=== PATIENT | female | born 1965 | race Caucasian/White ===

== ENCOUNTER → 2023-10-25 10:54 | Outpatient (BNVA) | payer BC, SELFPAY | PROVIDERS: Visit Provider Physician Assistant Surgical ==

== ENCOUNTER 2023-11-01 11:29 | Outpatient (AMB) | payer BC, SELFPAY ==
--- NOTE | 2023-11-01 12:20 | MHC.OFFVISWM ---
Intake VS Expanded 11/01/23 12:39 Height 5 ft 0.5 in Weight 230 lb 6 oz BMI 44.2 Body Fat % 43.5 Body Fat Mass 100.4 Fat Free Mass 130 Visceral Fat Rating 15 Body Water % 40.1 Body Water Mass 92.4 Basal Metabolic Rate/Score 1,806 Intake Visit Reasons: 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 BMI 44.3 Allergies Sulfa (Sulfonamide Antibiotics) Allergy (Mild, Verified 11/01/23 12:20) rash Medication List - Last Reconciled 11/01/23 by Kyler Ruelas MD ascorbate calcium (vitamin C) 500 mg PO DAILY elderberry fruit mg PO gabapentin 100 mg PO TID hydrochlorothiazide 25 mg PO DAILY hydrocodone-acetaminophen 10-325 mg 1 tab PO Q8H PRN meloxicam 15 mg PO DAILY valsartan 160 mg PO DAILY HPI 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 BMI 44.3 HPI Details Start time: 12.15pm, End time: 1.03pm ?I spent 43 minutes speaking with the patient on the phone plus an additional 5 minutes reviewing and updating records for a total of 48 minutes HPI Comments History of Present Illness Details Previous weight loss efforts: diet, exercise, keto diet Wakes up: 6am, Sleeps: 10pm Breakfast: none Lunch: 1-2pm (can of tuna with crackers) Dinner: 6pm (pasta) Snacks: 3.30pm (fruit), 9pm (ice cream) Exercise: gym membership Coffee: 16oz/day with creamer, tea: none, soda: none, juice: 4/wk (orange and cranberry), ETOH: none PFSH Medical History (Updated 11/01/23 @ 12:31 by Kyler Ruelas MD) DJD (degenerative joint disease) Hypertension Morbid obesity Surgical History (Updated 11/01/23 @ 12:31 by Kyler Ruelas MD) History of ventral hernia repair History of hysterectomy History of delivery Family History (Updated 10/25/23 @ 11:31 by Graciela Perkins CMA) Father Bone cancer Social History (Updated 10/25/23 @ 11:27 by Graciela Perkins CMA) Alcohol intake: current Alcohol intake frequency: holidays/special occasions only Alcohol type: hard liquor Patient Tobacco Use Status: Current everyday Tobacco user Cigarettes Per Day: 10 Assessment & Plan Assessment & Plan (1) Morbid obesity: Code(s): E66.01 - Morbid (severe) obesity due to excess calories Plan: 1.? Plan for lap sleeve gastrectomy. If diaphragmatic or ventral hernias are present at time of surgery, these will be repaired laparoscopically as well. Risks and complications were discussed in detail including possible conversion to an open procedure, anastomotic leak, bleeding requiring transfusion, small bowel obstruction, , DVT and pulmonary embolism, cardiac, or pulmonary complications, as detention complications such as anastomotic ulcer, insufficient weight loss and vitamin deficiencies. I emphasized the importance of close follow-up, adherence to instructions and good communication. 2. Nutritional counseling. Start with 2 Isopure protein (buy at [employer], [employer], [employer], [facility]) shakes (HALF scoop EACH in 8oz water) at 7am-9am and 10am-12pm, 2 protein bars (Zone Perfect protein bars, buy at [employer], ?[employer], [facility], or [employer]) at 1pm-3pm and 4pm-6pm, dinner at 7pm (8 forks of protein and 8 forks of salad/vegetables). If you feel hungry after dinner please have another HALF Zone Perfect protein bar at 9pm-10pm. So you do 2 protein shakes, 2.5 protein bars and one meal per day. Meal to include lean meat (beef, fish, pork, turkey, chicken), or albanian yogurt, or egg whites, or beans with a salad with olive oil and fruits (berries, pears, apples, kiwi). Avoid salt, breads, potatoes, rice, pasta, desserts. 3. Each shake would be drunk slowly, like coffee in a period of 2 hours. 4. Cut each bar in 4 pieces and eat each piece in 30min ?to make each bar last 2 hours. 5. I emphasized the importance of measuring accurately the food portion and measure it when serving the food in plate 6. The meal portions include 8 full-size forks of meat and 8 full-size forks of salad. You always eat the meat portion but you can replace up to 4 forks for salad/vegetables with rice, potatoes or pasta, or a fruit ?if you like. The less you do it the better weight loss will be. 7. One full-size fork is what it can be scooped on the fork without falling aside and not what can be bit with the fork. Use regular forks like those you find in a typical restaurant. 8.? Please send me weight measurements tomorrow and then once a week. Always include your diet and exercise plan. 9. The best choice would be to purchase a stationary bike at home that can track calories. Let me know if you do so I can give you an exercise plan. 10.Goal is to lose at least 1.5-2lbs per week 11. Goal to lose 10% of your weight before surgery, which is about 23lbs. Ultimate weight goal: 207lbs before surgery 12. Please follow the diet plan exactly without any change. If you don't like something about the plan or you feel hungry you need to communicate with me so I can help you revise the plan. You should not change the plan yourself. Orders: Orders Insulin Today E66.01 - Morbid (severe) obesity due to excess calories, I10 - Essential (primary) hypertension H Pylori Breath Test Today E66.01 - Morbid (severe) obesity due to excess calories, I10 - Essential (primary) hypertension Complete Blood Count Auto Diff Today E66.01 - Morbid (severe) obesity due to excess calories, I10 - Essential (primary) hypertension Lipid Panel Today E66.01 - Morbid (severe) obesity due to excess calories, I10 - Essential (primary) hypertension IRON PROFILE Today E66.01 - Morbid (severe) obesity due to excess calories, I10 - Essential (primary) hypertension Comprehensive Met. Panel Today E66.01 - Morbid (severe) obesity due to excess calories, I10 - Essential (primary) hypertension Vitamin B12 and Folate Today E66.01 - Morbid (severe) obesity due to excess calories, I10 - Essential (primary) hypertension C Reactive Protein Today E66.01 - Morbid (severe) obesity due to excess calories, I10 - Essential (primary) hypertension Vitamin A Today E66.01 - Morbid (severe) obesity due to excess calories, I10 - Essential (primary) hypertension TSH reflex Free T4 Today E66.01 - Morbid (severe) obesity due to excess calories, I10 - Essential (primary) hypertension Ferritin Today E66.01 - Morbid (severe) obesity due to excess calories, I10 - Essential (primary) hypertension Vitamin D 25-OH Total Today E66.01 - Morbid (severe) obesity due to excess calories, I10 - Essential (primary) hypertension Hemoglobin A1c Today E66.01 - Morbid (severe) obesity due to excess calories, I10 - Essential (primary) hypertension Zinc Today E66.01 - Morbid (severe) obesity due to excess calories, I10 - Essential (primary) hypertension Vitamin B1 Today E66.01 - Morbid (severe) obesity due to excess calories, I10 - Essential (primary) hypertension US abdomen comp w elastography Today E66.01 - Morbid (severe) obesity due to excess calories, I10 - Essential (primary) hypertension XR chest 2V Today E66.01 - Morbid (severe) obesity due to excess calories, I10 - Essential (primary) hypertension ECG 12 lead EKG Today E66.01 - Morbid (severe) obesity due to excess calories, I10 - Essential (primary) hypertension FL upper GI w air Today E66.01 - Morbid (severe) obesity due to excess calories, I10 - Essential (primary) hypertension Referrals Nutrition/Dietitian Referral E66.01 - Morbid (severe) obesity due to excess calories, I10 - Essential (primary) hypertension Behavioral Health Referral E66.01 - Morbid (severe) obesity due to excess calories, I10 - Essential (primary) hypertension Telehealth Telehealth Location of provider rendering services: practice address Location of patient: address on file Patient Identification confirmed using: Name, : Yes Telehealth method: voice only Patient verbally consented to treatment: Yes Patient verbally consented to billing insurance company: Yes Patient informed of any privacy concerns related to visit: Yes Minutes spent on Phone/Video with Pt.: 48 Coding Level of Care Code Tele New Pt Level 4 (15021) Diagnoses Morbid obesity E66.01 Time Spent (min) 48
[2023-11-01 12:39] VITALS: BMI 44.2
== END 2023-11-01 13:05 | disposition home or self-care (01) ==
LOC: HO.HBS 11:29
PROVIDERS: Visit Provider Surgery
DX: E66.01 Morbid (severe) obesity due to excess calories (principal); Z68.41 Body mass index [BMI] 40.0-44.9, adult
CPT/HCPCS: 99443

== ENCOUNTER → 2023-11-01 11:29 | Outpatient (BNVA) | payer BC, SELFPAY | PROVIDERS: Visit Provider Surgery ==

== ENCOUNTER 2023-11-12 11:17 | Outpatient (REF) | payer BC, SELFPAY ==
--- NOTE | ~2023-11-12 | XR_ITS ---
EXAMINATION: XR CHEST 2 VIEWS CLINICAL INFORMATION: Morbid obesity. COMPARISON: None. TECHNIQUE: Frontal and lateral views of the chest were obtained. FINDINGS: The heart, great vessels, pulmonary vasculature and mediastinum are normal. The lungs show no focal infiltrate, effusion or pneumothorax. There is no acute osseous abnormality. XR/XR chest 2V IMPRESSION: No active cardiopulmonary disease.
--- NOTE | 2023-11-12 11:26 | ECG_ITS ---
Test Reason : e66.01 Blood Pressure : / mmHG Vent. Rate : 084 BPM Atrial Rate : 084 BPM P-R Int : 164 ms QRS Dur : 082 ms QT Int : 402 ms P-R-T Axes : 070 042 075 degrees QTc Int : 475 ms Normal sinus rhythm Normal ECG No previous ECGs available Referred By: Kyler Ruelas Electronically Signed By:Luis Elizondo
[2023-11-12 11:55] LABS: MANUAL DIFF FLAG NO
[2023-11-12 12:11] LABS: Basophils Percent Auto 0.4 % (0-2); Eosinophils Absolute Auto 0.2 X10*3/uL (0.0-0.4); Eosinophils Percent Auto 2.5 % (0-4); Hematocrit 43.7 % (37.0-47.0); Hemoglobin 14.9 g/dl (12.0-16.0); Imm Gran Abs Auto 0.01 X10*3/uL (0.00-0.03); Imm Gran Pct Auto 0.1 % (0.0-0.4); Lymphocytes Absolute Auto 2.9 X10*3/uL (1.2-4.9); Lymphocytes Percent Auto 43.2 % (20-40); Mean Corpuscular HGB Conc 34.1 g/dl (31.0-35.0); Mean Corpuscular Hemoglobin 30.8 pg (27.0-33.0); Mean Corpuscular Volume 90.3 fL (80.0-98.0); Mean Platelet Volume 10.6 fL (9.4-12.3); Monocytes Absolute Auto 0.5 X10*3/uL (0.1-1.2); Monocytes Percent Auto 7.3 % (2-11); Neutrophils Absolute Auto 3.1 x10*3/uL (2.0-8.3); Neutrophils Percent Auto 46.5 % (45-73); Platelet Count 293 X10*3/uL (160-400); Red Blood Count 4.84 X10*6/uL (4.20-5.50); Red Cell Distribution Width 12.7 % (11.0-16.0); White Blood Count 6.7 X10*3/uL (4.8-10.8)
[2023-11-12 12:18] LABS: Estimated Average Glucose 105 mg/dL; Hemoglobin A1C 129.3705 umol/L; Hemoglobin A1c % 5.3 % (<6.0)
[2023-11-12 13:02] LABS: Alanine Aminotransferase 39 U/L (0-31); Albumin Level 4.2 g/dL (3.5-5.0); Alkaline Phosphatase 60 U/L (39-117); Anion Gap 11 (12-20); Aspartate Amino Transferase 30 U/L (5-31); Bilirubin Total 0.5 mg/dL (0.0-1.0); Blood Urea Nitrogen 15 mg/dL (9-16); C Reactive Protein 1.07 mg/dL (< or = 0.50); Calcium 9.3 mg/dL (8.4-10.2); Carbon Dioxide 29 mmol/L (22-29); Chloride 105 mmol/L (96-108); Cholesterol 191 mg/dL (<200); Estimated Glomerular Filt Rate > 60; Glucose Random 95 mg/dL (60-115); HDL Cholesterol 39 mg/dL (>40); Iron 121 mcg/dL (30-160); LDL Cholesterol Calculated 133 mg/dL (<100); Percent Iron Saturation 38 % (15-50); Potassium 3.4 mmol/L (3.3-5.1); Sodium 142 mmol/L (135-145); Total Iron Binding Capacity 318 mcg/dL (228-428); Total Protein 7.2 g/dL (6.5-8.0); Triglycerides 99 mg/dL (<150); Unsaturated Iron Binding 197 ug/dL
[2023-11-12 13:18] LABS: Ferritin 106 ng/mL (10-250); Insulin 7 uU/mL (2-29); TSH reflex Free T4 1.32 uIU/mL (0.32-4.0); Vitamin D 25-OH Total 33.2 ng/mL (>30)
[2023-11-12 14:13] LABS: Vitamin B12 491 pg/mL (200-900)
[2023-11-12 14:28] LABS: Folate 13.4 ng/mL (> or = 4.0)
[2023-11-15 05:58] LABS: Zinc 83 mcg/dL (60-130)
[2023-11-16 20:08] LABS: Vitamin A 38 mcg/dL (38-98)
[2023-11-17 15:23] LABS: Vitamin B1 13 nmol/L (8-30)
== END 2023-11-12 11:18 | disposition home or self-care (01) ==
LOC: HO.LAB 11:17
PROVIDERS: Visit Provider Surgery
DX: E66.01 Morbid (severe) obesity due to excess calories (principal); I10 Essential (primary) hypertension
CPT/HCPCS: 36415; 71046; 80053; 80061; 82306; 82607; 82728; 82746; 83036; 83525; 83540; 84425; 84443; 84590; 84630; 85025; 86140; 93005

== ENCOUNTER → 2023-11-12 11:26 | Outpatient (BNV) | payer BC, SELFPAY | PROVIDERS: Visit Provider Internal Medicine Cardiovascular Disease | DX: I10 Essential (primary) hypertension (principal); E66.01 Morbid (severe) obesity due to excess calories | CPT/HCPCS: 93010 ==

== ENCOUNTER 2023-11-18 13:09 | Outpatient (AMB) | payer BC, SELFPAY ==
--- NOTE | 2023-11-18 13:06 | MHC.AMNUTRGE ---
Intake Intake Visit Reasons: (TV) Initial Nutrition SWL Allergies Sulfa (Sulfonamide Antibiotics) Allergy (Mild, Verified 11/01/23 12:20) rash HPI Nutrition Diet Assmnt Details Acknowledges she has had poor habits for most of her life and is ready to change. we also had a long discussion about finding her own motivation and not being pressured to follow diet/exercises for others. we talked about post op nutrition expectations and the importance of protein , and structured meal times. Gets on the treadmill to burn off her protein bar - we talked about refraining from this dieting mentality and talked about viewing nutrition and exercise positively SWL online classes: 11/14 Previous weight loss methods attempted fasting and keto (following Dr. Madden) eating ochoa and a lot of high saturated fat food Dietary counseling reduction Who buys your food self Who prepares/cooks your food self Meal frequency regular: lunch (egg salad or tuna salad ) and dinner (steak and pasta and salad) and never: breakfast Lifestyle Food frequency Sports/energy drinks: daily ([employer] ) Diagnosis Nutrition problem #1 overweight/obesity As related to (etiology) #1 excess energy intake and physical inactivity As evidenced by (sign/symptom) #1 high BMI Monitoring/Goals Nutrition problem monitoring total energy intake, level of knowledge/skill, total PRO intake, total CHO intake, weight and oral fluids Outcome progress progressing Learning/Education Readiness to learn fair Stages of change action Educational materials provided Yes Most Recent Diabetes Results: Cholesterol 191 mg/dL (<200) 11/12/23 HDL Cholesterol 39 mg/dL (>40) L 11/12/23 Triglycerides 99 mg/dL (<150) 11/12/23 Creatinine 0.76 mg/dL (0.5-1.4) 11/12/23 Blood Urea Nitrogen 15 mg/dL (9-16) 11/12/23 Sodium 142 mmol/L (135-145) 11/12/23 Potassium 3.4 mmol/L (3.3-5.1) 11/12/23 Chloride 105 mmol/L (96-108) 11/12/23 Carbon Dioxide 29 mmol/L (22-29) 11/12/23 Calcium 9.3 mg/dL (8.4-10.2) 11/12/23 AST 30 U/L (5-31) 11/12/23 ALT 39 U/L (0-31) H 11/12/23 Total Protein 7.2 g/dL (6.5-8.0) 11/12/23 Albumin 4.2 g/dL (3.5-5.0) 11/12/23 PFSH Medical History (Updated 11/01/23 @ 12:31 by Kyler Ruelas MD) DJD (degenerative joint disease) Hypertension Morbid obesity Surgical History (Updated 11/01/23 @ 12:31 by Kyler Ruelas MD) History of ventral hernia repair History of hysterectomy History of delivery Family History (Updated 10/25/23 @ 11:31 by Graciela Perkins CMA) Father Bone cancer Social History (Updated 10/25/23 @ 11:27 by Graciela Perkins CMA) Alcohol intake: current Alcohol intake frequency: holidays/special occasions only Alcohol type: hard liquor Patient Tobacco Use Status: Current everyday Tobacco user Cigarettes Per Day: 10 Assessment & Plan Assessment & Plan (1) Morbid obesity: Code(s): E66.01 - Morbid (severe) obesity due to excess calories Plan Patient is cleared from a nutrition standpoint for bariatric surgery. Reviewed vitamin supplementation and commitment to protein shake for several months post surgery. Encouraged communication with office as needed Telehealth Telehealth Location of provider rendering services: practice address Location of patient: address on file Patient Identification confirmed using: Name, : Yes Telehealth method: voice only Patient verbally consented to treatment: Yes Patient verbally consented to billing insurance company: Yes Patient informed of any privacy concerns related to visit: Yes Minutes spent on Phone/Video with Pt.: 35 Coding Level of Care Code Nutr Indiv Intake (39452) Diagnoses Morbid obesity E66.01 Time Spent (min) 35
== END 2023-11-18 13:28 | disposition home or self-care (01) ==
LOC: HO.HBS 13:09
PROVIDERS: Visit Provider Dietitian, Registered
DX: E66.01 Morbid (severe) obesity due to excess calories (principal)

== ENCOUNTER → 2023-11-18 13:09 | Outpatient (BNVA) | payer BC, SELFPAY | PROVIDERS: Visit Provider Dietitian, Registered | DX: E66.01 Morbid (severe) obesity due to excess calories (principal); Z71.3 Dietary counseling and surveillance | CPT/HCPCS: 97802 ==

== ENCOUNTER 2023-11-25 07:58 | Outpatient (AMB) | payer BC, SELFPAY ==
--- NOTE | 2023-11-25 09:04 | MHC.OFFVISWM ---
Intake VS Expanded 11/25/23 09:12 Height 5 ft 0.5 in Weight 232 lb 2 oz BMI 44.6 Body Fat % 36.4 Body Fat Mass 81.2 Fat Free Mass 141.9 Visceral Fat Rating 22 Body Water % 43.5 Body Water Mass 97 Basal Metabolic Rate/Score 1,873 Intake Visit Reasons: TV Follow Up SWL - 1ST Allergies Sulfa (Sulfonamide Antibiotics) Allergy (Mild, Verified 11/01/23 12:20) rash HPI TV Follow Up SWL - 1ST HPI Details Start time: 8.57am, End time: 9.17am ?I spent 15 minutes speaking with the patient on the phone plus an additional 5 minutes reviewing and updating records for a total of 20 minutes HPI Comments History of Present Illness Details Overall weight loss: 7.4lbs, or 3.21% TBWL Is doing 2 Isopure protein shakes (1/2 scoop in water), 2 Zone Perfect protein bars and a meal (8 forks or meat and 8 forks of salad or vegetables) Exercise: is doing the stationary bike for 600 calories daily PFSH Medical History (Updated 11/01/23 @ 12:31 by Kyler Ruelas MD) DJD (degenerative joint disease) Hypertension Morbid obesity Surgical History (Updated 11/01/23 @ 12:31 by Kyler Ruelas MD) History of ventral hernia repair History of hysterectomy History of delivery Family History (Updated 10/25/23 @ 11:31 by Graciela Perkins CMA) Father Bone cancer Social History (Updated 10/25/23 @ 11:27 by Graciela Perkins CMA) Alcohol intake: current Alcohol intake frequency: holidays/special occasions only Alcohol type: hard liquor Patient Tobacco Use Status: Current everyday Tobacco user Cigarettes Per Day: 10 Assessment & Plan Assessment & Plan (1) Morbid obesity: Code(s): E66.01 - Morbid (severe) obesity due to excess calories Plan: 1. Continue same nutritional plan of 2 Isopure protein shakes (1/2 scoop in water), 2 Zone Perfect protein bars and a meal (8 forks or meat and 8 forks of salad or vegetables) 2. Exercise: continue the stationary bike for 600 calories daily 3. Continue to send me weight measurements weekly on Saturdays Telehealth Telehealth Location of provider rendering services: practice address Location of patient: address on file Patient Identification confirmed using: Name, : Yes Telehealth method: voice only Patient verbally consented to treatment: Yes Patient verbally consented to billing insurance company: Yes Patient informed of any privacy concerns related to visit: Yes Minutes spent on Phone/Video with Pt.: 20 Coding Level of Care Code Tele Est Pt Level 3 (39641) Diagnoses Morbid obesity E66.01 Time Spent (min) 20
[2023-11-25 09:12] VITALS: BMI 44.6
== END 2023-11-25 09:16 | disposition home or self-care (01) ==
LOC: HO.HBS 07:58
PROVIDERS: Visit Provider Surgery
DX: E66.01 Morbid (severe) obesity due to excess calories (principal); Z68.41 Body mass index [BMI] 40.0-44.9, adult
CPT/HCPCS: 99442

== ENCOUNTER → 2023-11-25 07:58 | Outpatient (BNVA) | payer BC, SELFPAY | PROVIDERS: Visit Provider Surgery ==

== ENCOUNTER 2023-11-26 09:56 | Outpatient (REF) | payer BC, SELFPAY ==
--- NOTE | ~2023-11-26 | US_ITS ---
EXAMINATION: US COMPLETE ABDOMEN WITH LIVER ELASTOGRAPHY CLINICAL INFORMATION: Morbid obesity. COMPARISON: None available. TECHNIQUE: Real-time imaging of the abdominal viscera. Noninvasive ultrasound liver fibrosis assessment is performed using Nadiya ElastPQ point quantification shear wave elastography (2D-SWE) with a C5-2 MHz transducer. Multiple elastography samples are obtained. FINDINGS: PANCREAS: Normal. The visualized pancreatic head and body are normal in appearance. The remainder of the pancreas is obscured from visualization by the overlying bowel gas. ABDOMINAL AORTA: The proximal, middle, and distal aortic segments are normal in caliber. INFERIOR VENA CAVA: Visualized portions are normal. LIVER: The liver demonstrates normal size, contour and increased echogenicity, with right pericholecystic sparing. No focal lesion or intrahepatic biliary duct dilatation. The right lobe measures 17.2 cm in length. The left lobe measures 11.4 cm in length. Portal flow is towards the liver (hepatopetal). Shear wave liver elastography median stiffness is 1.53 m/s (reference: normal median stiffness is 1.3 m/s or less). IQR/median stiffness to assess sampling precision is 0.05 (reference: good quality data set is IQR/median stiffness of 0.15 or less). GALLBLADDER: Normal. The gallbladder is physiologically distended without evidence of stones, sludge, polyps, wall thickening or pericholecystic fluid. COMMON BILE DUCT: Normal in caliber measuring 0.5 cm in diameter. RIGHT KIDNEY: Normal. No hydronephrosis. No renal calculi or focal parenchymal lesions. The kidney measures 9.9 cm in maximum dimension. LEFT KIDNEY: Normal. No hydronephrosis. No renal calculi or focal parenchymal lesions. The kidney measures 9.3 cm in maximum dimension. SPLEEN: Normal. The spleen measures 8.3 cm in maximum dimension. FREE FLUID: None. US/US abdomen comp w elastography IMPRESSION: 1. There is generalized increase in hepatic echotexture, consistent with fatty infiltration or hepatocellular disease. Please correlate clinically. Characteristic pericholecystic sparing favors fatty infiltration. No focal hepatic mass or intrahepatic biliary dilatation is seen. 2. Liver elastography: In the absence of other known clinical signs, measurements rule out compensated advanced chronic liver disease. If there are known clinical signs, further testing may be needed for confirmation. REFERENCE: Society of Radiologists in Ultrasound Liver Stiffness Thresholds (2020): LIVER STIFFNESS THRESHOLDS: *Liver Stiffness equal or less than 1.3 m/s: High probability of being normal. *Liver Stiffness less than 1.7 m/s: In the absence of other known clinical signs, rules out compensated advanced chronic liver disease. *Liver Stiffness 1.7-2.1 m/s: Suggestive of compensated advanced chronic liver disease but need further test for confirmation. *Liver Stiffness over 2.1 m/s: Rules in compensated advanced chronic liver disease. *Liver Stiffness over 2.4 m/s: Suggestive of clinically significant portal hypertension. QUALITY OF DATA SET: *IQR/Median value equal or less than 0.15 implies a quality data set. *IQR/Median value over 0.15 implies a poor quality data set. SIGNIFICANT CHANGE FROM PRIOR EXAM: Significant change if liver stiffness measurement is 10% or greater from prior exam. OTHER CONSIDERATIONS: The stage of liver fibrosis may be overestimated in the setting of acute hepatitis, liver inflammation, elevated liver function tests, hepatic vascular congestion, obstructive cholestasis, non-fasting state, and infiltrative diseases such as amyloidosis and lymphoma. In some patients with NAFLD, the liver stiffness thresholds for compensated advanced chronic liver disease may be lower. In causes other than viral hepatitis and NAFLD, liver stiffness thresholds are not well established.
== END 2023-11-26 09:57 | disposition home or self-care (01) ==
LOC: HO.US 09:56
PROVIDERS: Visit Provider Surgery
DX: I10 Essential (primary) hypertension (principal); E66.01 Morbid (severe) obesity due to excess calories
CPT/HCPCS: 76700; 76981

== ENCOUNTER 2023-12-02 10:18 | Outpatient (REF) | payer BC, SELFPAY ==
[2023-12-02 10:47] LABS: MANUAL DIFF FLAG NO
[2023-12-02 12:01] LABS: Basophils Percent Auto 0.5 % (0-2); Eosinophils Absolute Auto 0.3 X10*3/uL (0.0-0.4); Eosinophils Percent Auto 3.1 % (0-4); Hematocrit 45.3 % (37.0-47.0); Hemoglobin 15.8 g/dl (12.0-16.0); Imm Gran Abs Auto 0.02 X10*3/uL (0.00-0.03); Imm Gran Pct Auto 0.2 % (0.0-0.4); Lymphocytes Absolute Auto 2.8 X10*3/uL (1.2-4.9); Lymphocytes Percent Auto 33.7 % (20-40); Mean Corpuscular HGB Conc 34.9 g/dl (31.0-35.0); Mean Corpuscular Hemoglobin 31.5 pg (27.0-33.0); Mean Corpuscular Volume 90.4 fL (80.0-98.0); Mean Platelet Volume 11.2 fL (9.4-12.3); Monocytes Absolute Auto 0.7 X10*3/uL (0.1-1.2); Monocytes Percent Auto 7.9 % (2-11); Neutrophils Absolute Auto 4.5 x10*3/uL (2.0-8.3); Neutrophils Percent Auto 54.6 % (45-73); Platelet Count 295 X10*3/uL (160-400); Red Blood Count 5.01 X10*6/uL (4.20-5.50); Red Cell Distribution Width 12.5 % (11.0-16.0); White Blood Count 8.3 X10*3/uL (4.8-10.8)
[2023-12-02 12:05] LABS: INTERNATIONAL NORM RATIO 0.9 (0.9-1.1); Prothrombin Time 11.1 SEC (11.1-13.3)
[2023-12-02 12:08] LABS: Partial Thromboplastin Time 30.3 SEC (26.0-36.8)
[2023-12-02 13:01] LABS: Alanine Aminotransferase 31 U/L (0-31); Albumin Level 4.3 g/dL (3.5-5.0); Alkaline Phosphatase 75 U/L (39-117); Anion Gap 13 (12-20); Aspartate Amino Transferase 26 U/L (5-31); Bilirubin Total 0.4 mg/dL (0.0-1.0); Blood Urea Nitrogen 14 mg/dL (9-16); Calcium 9.7 mg/dL (8.4-10.2); Carbon Dioxide 29 mmol/L (22-29); Chloride 101 mmol/L (96-108); Estimated Glomerular Filt Rate > 60; Glucose Random 94 mg/dL (60-115); Potassium 3.5 mmol/L (3.3-5.1); Sodium 139 mmol/L (135-145); Total Protein 7.6 g/dL (6.5-8.0)
== END 2023-12-02 10:19 | disposition home or self-care (01) ==
LOC: HO.LAB 10:18
PROVIDERS: Visit Provider Surgery
DX: K80.20 Calculus of gallbladder without cholecystitis without obstruction (principal)
CPT/HCPCS: 36415; 80053; 85025; 85610; 85730

== ENCOUNTER 2023-12-02 13:32 | Outpatient (AMB) | payer BC, SELFPAY ==
--- NOTE | 2023-12-02 13:20 | A.OFFWM_ITS ---
Intake Intake Visit Reasons: (TV) BH Intake Allergies Sulfa (Sulfonamide Antibiotics) Allergy (Mild, Verified 11/01/23 12:20) rash PFSH Medical History (Updated 12/02/23 @ 13:52 by Ambika Larkin) DJD (degenerative joint disease) Hypertension Morbid obesity Surgical History (Updated 11/01/23 @ 12:31 by Kyler Ruelas MD) History of ventral hernia repair History of hysterectomy History of delivery Family History (Updated 10/25/23 @ 11:31 by Graciela Perkins CMA) Father Bone cancer Social History (Updated 10/25/23 @ 11:27 by Graciela Perkins CMA) Alcohol intake: current Alcohol intake frequency: holidays/special occasions only Alcohol type: hard liquor Patient Tobacco Use Status: Current everyday Tobacco user Cigarettes Per Day: 10 Behavioral Health Assessment Weight Management Therapy Therapy Notes Details Patient is concerned about her health and quality of life as she ages, she is looking to have weight loss surgery. She denied any mental health history at all and has never been in treatment. Pt denied a history of alcohol or drug issues. Presenting Concerns Referral Source provider Reason for referral weight loss surgery evaluation Precipitating Event obesity Living Situation Current Living Situation Own At risk of losing current housing? No Satisfied with current living situation? Yes Comments Pt lives with her who she has been to since then in 2004 and remarried a few years later. Her adult son lives at home currently. Food/Weight/Diet Expectations of change weight loss and maintenance History/Relationship with food Pt stated that she was not over eating but eating the wrong things. She would skip breakfast and just have coffee, around lunch would eat crackers, cheese, or tuna and crackers, dinner would be pasta, lasagna, uzbek bread, baked potatoes, rice, snack before bed mainly ice cream. History/Relationship with weight Pt stated that she gained 30lbs over the pandemic. History/Relationship with dieting Thalia Figueroa Dr Berg Keto diet Binge Eating Do you frequently eat large amounts of food in short periods of time, not feeling physically hungry? No Do you feel out of control when you eat a large amount of food in a short period of time? No Do you eat large amounts of food rapidly and typically alone? No Night Eating Do you wake up at least once during the night to eat? No If you wake up in the night, do you find that it is necessary to eat something in order to fall back asleep? No Do you have little or no appetite in the morning and feel very hungry in the evening, often overeating between dinner and when you go to bed? No Social History Family history and relationship Pt is and has three adult children and grandchildren. 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 none known Education Preferred learning style Auditory, Verbal, Written, Learn by doing and Visual Currently enrolled in educational program? No Interested in further educational program? 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 None Service Service? No Mental Health and Addiction Treatment Current/Past substance abuse? No Current/Past addictive behavior concerns? Yes Pain Screening Current pain? Yes Pain in the last few months? No Medications Is the patient compliant with medications? Yes Does the patient have Abel Guardian in place? Not applicable Does the patient use complimentary health approaches? No Questionnaires PHQ-9 Over the last 2 weeks, how often have you been bothered by any of the following problems? 1. Little interest or pleasure in doing things: nearly every day 2. Feeling down, depressed, or hopeless: several days 3. Trouble falling or staying asleep, or sleeping too much: more than half the days 4. Feeling tired or having little energy: more than half the days 5. Poor appetite or overeating: several days 6. Feeling bad about yourself - or that you are a failure or have let yourself or your family down: not at all 7. Trouble concentrating on things, such as reading the newspaper or watching television: not at all 8. Moving or speaking so slowly that other people could have noticed. Or the opposite - being so fidgety or restless that you have been moving around a lot more than usual: not at all 9. Thoughts that you would be better off or of hurting yourself in some way: not at all Total score: 9 Source: Developed by Drs. Robert Mustafa, Beth Grace, Jean-Paul Senior and colleagues, with an educational fransisca from [employer]. Binge Eating Scale Group 1 A. I don't feel self-conscious about my wt. or body size when I'm with others. B. I feel concerned about how I look to others, but it normally does not make me fell disappointed with myself C. I do get self-conscious about my appearance and wt. which makes me feel disappointed in myself. D. I feel very self-conscious about my wt. and frequently I feel intense shame and disgust for myself. I try to avoid social contacts because of my self- consciousness. Response Group 1: D Group 2 A. I don't have any difficulty eating slowly in the proper manner. B. Although I seem to gobble down foods, I don't end up feeling stuffed because of eating to much. C. At times, I tend to eat quickly and then, I feel uncomfortably full afterwards. D. I have the habit of bolting down my food, without really chewing it. When this happens I usually feel uncomfortably stuffed because I've eaten to much. Response Group 2: C Group 3 A. I feel capable to control my eating urges when I want to. B. I feel like I have failed to control my eating more than the average person. C. I feel utterly helpless when it comes to feeling in control of my eating urges. D. Because I feel so helpless about controlling my eating I have become very desperate about trying to get control. Response Group 3: B Group 4 A. I don't have the habit of eating when I'm bored. B. I sometimes eat when I'm bored, but often I'm able to get busy and get my mind off food. C. I have a regular habit of eating when I'm bored, but occasionally, I can use some other activity to get my mind off eating. D. I have a strong habit of eating when I'm bored. Nothing seems to help me breath the habit. Response Group 4: D Group 5 A. I'm usually physically hungry when I eat something. B. Occasionally, I eat something on impulse even though I really am not hungry. C. I have the regular habit of eating foods, that I might not really enjoy, to satisfy a hungry feeling even though physically, I don't need the food. D. Although I'm not physically hungry, I get a hungry feeling in my mouth that only seems to be satisfied when I eat a food, like sandwich, that fills my mouth. Sometimes, when I eat the food to satisfy my mouth hunger, I then spit the food out so I won't gain weight. Response Group 5: B Group 6 A. I don't feel any guilt or self-hate after I overeat. B. After I overeat, occasionally I feel guilt or self-hate. C. Almost all the time I experience strong guilt or self-hate after I overeat. Response Group 6: B Group 7 A. I don't lose total control of my eating when dieting even after periods when I overeat. B. Sometimes when I eat a forbidden food on a diet, I feel like I blew it and eat even more. C. Frequently, I have the habit of saying to myself, I've blown it now, why not go all the way, when I overeat on a diet. When that happens I eat more. D. I have a regular habit of starting a strict diets for myself but I break the diets by going on an eating binge. My life seems to be either a feast or famine. Response Group 7: A Group 8 A. I rarely eat so much food that I feel uncomfortably stuffed afterwards. B. Usually about once a month, I each such a quantity of food, I end up feeling very stuffed. C. I have regular periods during the month when I eat large amounts of food, either at mealtime or at snacks. D. I eat so much food that I regularly feel quite uncomfortable after eating and sometimes a bit nauseous. Response Group 8: A Group 9 A. My level of calorie intake does not go up very high or go down very low on a regular basis. B. Sometimes after I overeat, I will try to reduce my caloric intake to almost nothing to compensate for the excess calories I've eaten. C. I have a regular habit of overeating during the night. It seems that my rou doc is not to be hungry in the morning but overeat in the evening. D. In my adult years, I have had week-long periods where I practically starve myself. This follows periods when I overeat. It seems I live a life of either feast or famine. Response Group 9: A Group 10 A. I usually am able to stop eating when I want to. I know when enough is enough. B. Every so often, I experience a compulsion to eat which I can't seem to control. C. Frequently, I experience strong urges to eat which I seem unable to control, but at other times I can control my eating urges. D. I feel incapable of controlling urges to eat. I have a fear of not being able to stop eating voluntarily. Response Group 10: A Group 11 A. I don't have any problem stopping eating when I feel full. B. I usually can stop eating when I feel full but occasionally overeat leaving me feeling uncomfortably stuffed. C. I have a problem stopping eating once I start and usually I feel uncomfortably stuffed after I eat a meal. D. Because I have a problem not being able to stop eating when I want, I sometimes have to induce vomiting to relieve my stuffed feeling. Response Group 11: A Group 12 A. I seem to eat just as much when I'm with others, Family social gatherings as when I'm by myself. B. Sometimes, when I'm with other persons, I don't eat as much as I want to eat because I'm self-conscious about my eating. C. Frequently, I eat only a small amount of food when others are present, because I'm very embarrassed about my eating. D. I feel so ashamed about overeating that I pick times to overeat when I know no one will see me. I feel like a closet eater. Response Group 12: A Group 13 A. I eat three meals a day with only an occasional between meal snack. B. I eat 3 meals a day, but I also normally snack between meals. C. When I am snacking heavily, I get in the habit of skipping regular meals. D. There are regular periods when I seem to be continually eating, with no planned meals. Response Group 13: B Group 14 A. I don't think much about trying to control unwanted eating urges. B. At least some of the time, I feel my thoughts are pre-occupied with trying to control my eating urges. C. I feel that frequently I spend much time thinking about how much I ate or about trying not to eat anymore. D. It seems to me that most of my waking hours are pre-occupied by thoughts about eating or not eating. I feel like I'm constantly struggling not to eat. Response Group 14: C Group 15 A. I don't think about food a great deal. B. I have strong craving for food but they last only for brief periods of time. C. I have days when I can't seem to think about anything else but food. D. Most of my days seem to be pre-occupied with thoughts about food. I feel like I live to eat. Response Group 15: A Group 16 A. I usually know whether or not I'm physically hungry. I take the right portion of food to satisfy me. B. Occasionally, I feel uncertain about knowing whether or not I'm physically hungry. A these times it's hard to know how much food I should take to satisfy me. C. Even though I might know how many calories I should eat, I don't have any idea what is a normal amount of food for me. Response Group 16: A Binge Eating Score: 14 Score less than 17 Minimal Risk Score between 18-26 Moderate Risk Score between 27-46 High Risk Assessment & Plan Assessment & Plan (1) Adjustment disorder, unspecified: Code(s): F43.20 - Adjustment disorder, unspecified (2) Morbid obesity: Code(s): E66.01 - Morbid (severe) obesity due to excess calories Plan Patient has no mental health history and no serious barriers. She is cleared for surgery when ready. Telehealth Telehealth Location of provider rendering services: practice address Location of patient: address on file Patient Identification confirmed using: Name, : Yes Telehealth method: voice only Patient verbally consented to treatment: Yes Patient verbally consented to billing insurance company: Yes Patient informed of any privacy concerns related to visit: Yes Minutes spent on Phone/Video with Pt.: 45 Coding Level of Care Code Tele Psy Diag Eval (71347) Diagnoses Adjustment disorder, unspecified F43.20 Morbid obesity E66.01 Time Spent (min) 45
== END 2023-12-02 13:56 | disposition home or self-care (01) ==
LOC: HO.HBST 13:32
PROVIDERS: Visit Provider Counselor Mental Health
DX: F43.20 Adjustment disorder, unspecified (principal); E66.01 Morbid (severe) obesity due to excess calories
CPT/HCPCS: 90791

== ENCOUNTER 2023-12-04 10:20 | Day surgery (SDC) | payer BC, SELFPAY ==
[2023-12-04 11:54] VITALS: BMI 42.0
[2023-12-04 12:12] VITALS: BP 127/82; PULSE 90; RESP 16; TEMP 36.9; O2SAT 95
[2023-12-04] MEDS: Lactated Ringers 1,000 ML 80 ML IVCONT (12:22)
--- NOTE | 2023-12-04 12:29 | MHC.SHP ---
Pre-Procedural Eval Section A - 24 Hr Update-Section A only Date of Service: 12/04/23 The patient is an INPATIENT: No The patient has been examined within 24 hours of the surgical procedure. The History & Physical has been completed within 30 days and I have reviewed it.: Yes Section B - Complete if H&P > 30 days Chief Complaint: Morbid (severe) obesity due to excess calories Details of Present Illness: Esophagitis Relevant Family History (Specify if Yes): No Relevant Social History: None Present Medications: None Medical History: No relevant PMH History of Previous Operations: No relevant previous surgery Allergies: Allergies Allergy/AdvReac Type Severity Reaction Status Date / Time Sulfa (Sulfonamide Allergy Mild rash Verified 11/01/23 12:20 Antibiotics) Review of Systems Sugical H&P ROS: Negative: Constitution, Cardiovascular, Respiratory, Neurological, Psychiatric, Hem-Onc, Allergic/Immunologic, Gastrointestinal, Genitourinary, Musculoskeletal, Integumentary, Endocrine and Eyes/Ears/Nose/Throat Exam Surgical H&P Exam: Normal: HEENT, Normal: Heart, Normal: Lungs, Normal: Extremities, Normal: Abdomen, Normal: Skin and Normal: Neurological Plan Diagnosis/Plan: Unchanged (EGD to assess etiology of esophagitis. Risks of bleeding and perforation were discussed with the patient and she is in agreement with the plan.) I have reviewed the history and physical and performed a pertinent physical examination on my patient. No changes have occurred unless specified. Time Spent With Patient Time: Total time managing care of this patient today ____ minutes.
--- NOTE | 2023-12-04 12:35 | PM.OP ---
Brief Operative Note Date of Service: 12/04/23 Pre-op diagnosis: GERD Post-op diagnosis: same (Hiatal hernia and gastritis) Procedure: PROCEDURE DATE: 12/04/2023 PREOPERATIVE DIAGNOSIS: GERD POSTOPERATIVE DIAGNOSIS: ?Same as above. 1) small hiatal hernia, 2) distal gastritis PROCEDURE: [id number] with biopsies Surgeon: ?Morro Ruelas M.D.. Ph.D. Tunnel Elastic Operator Lockstitch: None ? Anesthesia: IV sedation Estimated blood loss: ?Minimal FINDINGS AND PROCEDURE: ? OPERATIVE INDICATIONS: ?The patient is a 58 year old female known to me who is interested in bariatric surgery. The patient has GERD. Based on this information I recommended an upper endoscopy to evaluate the patient's symptoms. Risks and complications of the surgery were discussed with the patient in advance particularly the possibility of perforation or bleeding that may require surgical intervention. The patient understood the risks and was in agreement with the plan. ? PROCEDURE: After informed consent was obtained by the patient, the patient was ?transferred to the Operating Room and was placed in the supine position.? After successful induction of IV sedation, a mouth block was inserted and the patient was placed in the left lateral decubitus position. An upper endoscopy was performed next, the oropharynx and esophagus appeared within the normal limits. There was a small 2-3cm hiatal hernia. The z-line was smooth. Two biopsies were obtained from the distal esophagus 2-3 cm proximal to the GE junction and two additional biopsies from the GE junction. The stomach was entered and it appeared to be of normal size. There was mild gastritis at distal antrum. There was no stricture or ulcer. A biopsy was obtained from the fundus and the antrum. No significant bleeding was noted from any of the biopsy sites. Retroflexion of the endoscope confirmed the presence of a diaphragmatic hernia. The scope was then advanced into the duodenum which appeared to be normal as well. At that point the duodenum ?and the stomach were decompressed and the scope was withdrawn from the patient's mouth. The patient extubated and was transferred in stable condition to the Recovery Room for further care. I was present and performed all steps of the procedure. There were no residents to assist with this case. Morro Ruelas M.D., Ph.D. Surgeon: Kyler Ruelas MD Anesthesia: MAC Was an Tunnel Elastic Operator Lockstitch used for this Procedure?: No Estimated blood loss (mL): 0 IV fluids (mL): 400 Urine output (mL): 0 (No Coon to record output) Pathology: other (1) antrum x1, 2) fundus x1, 3) GE junction x2, 4) distal esophagus x2) Condition: stable Disposition: PACU
[2023-12-04 13:05] VITALS: BP 96/59; PULSE 95; RESP 16; TEMP 36.6; O2SAT 93
[2023-12-04 13:20] VITALS: BP 95/54; PULSE 75; RESP 16; O2SAT 96
[2023-12-04 13:35] VITALS: BP 104/60; PULSE 72; RESP 16; O2SAT 98
[2023-12-04 13:46] VITALS: BP 112/69; PULSE 88; RESP 16; TEMP 36.7; O2SAT 95
== END 2023-12-04 14:35 | disposition home or self-care (01) ==
PROVIDERS: Visit Provider Surgery
PROC: 0DJ08ZZ Inspection of Upper Intestinal Tract, Via Natural or Artificial Opening Endoscopic (ICD-10-PCS; CPT 43235; principal; 2023-12-04 16:00)
DX: K21.9 Gastro-esophageal reflux disease without esophagitis (principal); E66.01 Morbid (severe) obesity due to excess calories; Z68.41 Body mass index [BMI] 40.0-44.9, adult; K29.60 Other gastritis without bleeding; K44.9 Diaphragmatic hernia without obstruction or gangrene; K80.20 Calculus of gallbladder without cholecystitis without obstruction; I10 Essential (primary) hypertension; M19.90 Unspecified osteoarthritis, unspecified site; Z79.899 Other long term (current) drug therapy; Z88.2 Allergy status to sulfonamides; Z98.890 Other specified postprocedural states; F17.210 Nicotine dependence, cigarettes, uncomplicated
CPT/HCPCS: 43239; 86850; 86900; 86901; 88305; 88313; 88342; J2250; J2704

== ENCOUNTER → 2023-12-04 10:20 | Outpatient (BNV) | payer BC, SELFPAY | PROVIDERS: Visit Provider Surgery | DX: K21.9 Gastro-esophageal reflux disease without esophagitis (principal); K29.70 Gastritis, unspecified, without bleeding | CPT/HCPCS: 43239 ==

== ENCOUNTER 2023-12-27 09:12 | Outpatient (REF) | payer BC, SELFPAY ==
--- NOTE | ~2023-12-27 | FL_ITS ---
EXAMINATION: XR FLUOROSCOPY UPPER GI WITH AIR CLINICAL INFORMATION: Preop evaluation prior to bariatric surgery COMPARISON: None TECHNIQUE: Fluoroscopic air contrast upper GI examination was performed utilizing standard techniques with thin and thick barium and effervescent granules. Numerous spot images were obtained. FINDINGS: Images of the oropharynx and hypopharynx demonstrate normal swallow mechanism with normal epiglottic inversion and soft palate elevation. No tracheal penetration, glottic or subglottic aspiration identified. No nasopharyngeal reflux present. Hypopharyngeal structures appear normal without evidence of mass or diverticulum. There is mild cricopharyngeal achalasia present Dual and single contrast images of the esophagus demonstrate normal caliber, contour, and mucosal pattern. No evidence of stricture, mass, or ulcerations identified. Esophageal peristalsis is mildly disorganized. A small to moderate-sized type I hiatal hernia is present. Gastroesophageal reflux is seen up to the thoracic inlet. Dual contrast and single contrast images of the stomach demonstrated normal contour and mucosal pattern without evidence of mass, ulceration, or other abnormality. Mild limitation of evaluation due to poor coating of the superior wall and greater curvature. Contrast freely passed into the gastric antrum and duodenal bulb without delay. Single and air-contrast images of the duodenal bulb demonstrate no abnormality. The duodenal sweep has a normal appearance, course, and mucosal fold appearance. No malrotation. The imaged proximal jejunum has a normal fold pattern and caliber. FLUOROSCOPY TIME: 4 minutes 2 seconds Number of Spot Images: 6 Number of Cine: 8 DOSE AREA PRODUCT: [id number] uGy-m2 (microgray-meter squared) FL/FL upper GI w air IMPRESSION: 1. Mild cricopharyngeal achalasia 2. Mildly disorganized esophageal peristalsis 3. Small to moderate-sized type I hiatal hernia 4. Significant gastroesophageal reflux This procedure was performed by Humberto Ortiz PA-C, and supervised by Dr. Rubio
== END 2023-12-27 09:13 | disposition home or self-care (01) ==
LOC: HO.XRAY 09:12
PROVIDERS: Visit Provider Surgery
DX: E66.01 Morbid (severe) obesity due to excess calories (principal); I10 Essential (primary) hypertension
CPT/HCPCS: 74246

== ENCOUNTER → 2023-12-27 09:37 | Outpatient (BNV) | payer BC, SELFPAY | PROVIDERS: Visit Provider Physician Assistant Surgical | DX: Z01.818 Encounter for other preprocedural examination (principal); E66.01 Morbid (severe) obesity due to excess calories | CPT/HCPCS: 74246 ==

== ENCOUNTER 2023-12-30 08:07 | Outpatient (AMB) | payer BC, SELFPAY ==
--- NOTE | 2023-12-30 08:59 | A.OFFVIS_ITS ---
VS Expanded 12/30/23 09:22 Height 5 ft 0.5 in Weight 211 lb 5 oz BMI 40.6 Intake Visit Reasons: TV Pre Op LSG 01/08/24 Allergies Sulfa (Sulfonamide Antibiotics) Allergy (Mild, Verified 12/30/23 08:59) rash Medication List - Last Reconciled 12/30/23 by Kyler Ruelas MD ascorbate calcium (vitamin C) 500 mg PO DAILY docusate sodium (Colace) 100 mg PO DAILY elderberry fruit mg PO hydrocodone-acetaminophen 10-325 mg 1 tab PO Q8H PRN ondansetron 4 mg PO BID pantoprazole 40 mg PO DAILY polyethylene glycol 3350 (Miralax) 17 grams PO DAILY sucralfate 10 mL PO BID valsartan 160 mg PO DAILY HPI HPI TV Pre Op LSG 01/08/24: Details: Start time: 8.55am, End time: 9.25am ?I spent 20 minutes speaking with the patient on the phone plus an additional 10 minutes reviewing and updating records for a total of 30 minutes HPI Comments Details: Overall weight loss: 19.1lbs, or 8.28% TBWL Is doing 2 Isopure protein shakes (1/2 scoop each in water), 2 Zone Perfect protein bars and one meal (8 forks of protein and 8 forks of salad or vegetables) Exercise: stationary bike for 350 calories daily x7/week PFSH Medical History (Updated 12/30/23 @ 09:12 by Kyler Ruelas MD) DJD (degenerative joint disease) Hypertension Morbid obesity Surgical History (Updated 11/01/23 @ 12:31 by Kyler Ruelas MD) History of ventral hernia repair History of hysterectomy History of delivery Family History (Updated 10/25/23 @ 11:31 by Graciela Perkins CMA) Father Bone cancer Social History (Updated 10/25/23 @ 11:27 by Graciela Perkins CMA) Alcohol intake: current Alcohol intake frequency: holidays/special occasions only Alcohol type: hard liquor Patient Tobacco Use Status: Current everyday Tobacco user Tobacco use type: Cigarette Cigarette Packs Per Day: 0.5 Cigarettes Per Day: 10.0 Telehealth Telehealth Telehealth Platform: Telephone Location of provider rendering services: practice address Location of patient: address on file Patient Identification confirmed using: Name, : Yes Telehealth method: voice only Patient verbally consented to treatment: Yes Patient verbally consented to billing insurance company: Yes Patient informed of any privacy concerns related to visit: Yes Minutes spent on Phone/Video with Pt.: 30 Assessment & Plan Assessment & Plan (1) Obesity: Code(s): E66.9 - Obesity, unspecified Category: Medical Qualifiers: Obesity type: due to excess calories Obesity classification: adult class 2 (BMI 35 - 39.9) Serious obesity comorbidity presence: with serious comorbidity Body mass index: BMI 39.0-39.9 Qualified Code(s): E66.01 - Morbid (severe) obesity due to excess calories; Z68.39 - Body mass index [BMI] 39.0- 39.9, adult Plan: 1. Plan for lap sleeve gastrectomy and cholecystectomy including upper GI endoscopy. All tests has been completed and reviewed and the patient is cleared for the surgery. ?If diaphragmatic or ventral hernias are present at time of surgery, these will be repaired laparoscopically as well. Risks and complications were discussed in detail including possible conversion to an open procedure, anastomotic leak, bleeding requiring transfusion, bile leak, bile duct injury, pancreatitis, jaundice, small bowel obstruction, , DVT and pulmonary embolism, cardiac, or pulmonary complications, as long lines operator co mplications such as anastomotic ulcer, insufficient weight loss and vitamin deficiencies. I emphasized the importance of close follow-up, adherence to instructions and good communication. So far she has proven to be an excellent communicator and very compliant with all our directions accomplishing a great weight loss. I believe that she is an excellent candidate and she is ready. 2. Preop prescriptions were provided and explained the purpose of each one. Need to be purchased preop. Start Pantoprazole now as you get it from the pharmacy, 1 pill per day. Sucralfate and Zofran are for after surgery as needed. 3. Bowel prep: please do 7 packets ?of Miralax mixing each one with a an 8oz glass of water, crystal light, gatorade zero, or propel ?on 01/06/24 and the same amount on 01/07/24. The Miralax you begin with one packet at a time in 8oz water or crystal light, gatorade zero, or propel ?as early in the day as you can and you do them back to back until you finish them. Continue the protein shakes during? the bowel prep. 4. Needs to purchase 1oz medicine cups . 5. Needs to purchase Children's liquid Tylenol for postop pain control. 6. She needs to stop the Meloxicam and the Gabapentin. Stop the Hydrochlorothiazide on 01/06/24 (last pill that day). Avoid aspirin, motrin, Advil, Aleve, Ibuprofen, Naproxyn. Tylenol is OK. 7. She needs to purchase the Celebrate 4:1 protein shakes from the hospital's gift shop. 8. Will do basic preop blood work-up any day between Saturday08/13/22 and Saturday08/17/22 fasting for 12 hours and is scheduled to see the Anesthesiologist prior to the day of surgery. 9. Importance of adherence to postop folllow-up and recommendations was underscored and she understands that. 10. Stop food and bars as of Saturday12/30/23 and continue with 3 Isopure protein shakes (HALF scoop EACH in 8oz water) at 8am-10am, 11am-1pm and 2pm-4pm and two more Isopure protein shake with ONE scoop EACH in 8oz of water at 5pm-7pm and 8pm-10pm 11. No soups, broths or V8 12. The patient's?medical?history has been reviewed and they are considered low risk for post op DVT and therefore DVT prophylaxis is not considered necessary. Travel after surgery was reviewed. The patient has not disclosed any travel plans during the first 30 days after surgery and they have been advised that within the first 30 days after surgery any bus, plane, train or car travel over 2 hours in duration is contraindicated due to the possibility of developing blood clots from immobility. Any travel, needs to include periods of ambulation of 10 minutes in duration every 2 hours.? Patient was instructed to discuss any plans for travel during this period with their bariatric surgeon.? 13. Please take at the day of surgery the following medications: Only the Valsartan based on the following parameters: Check your blood pressure daily in the morning. If your blood pressure is: Less than 120/70: take no Valsartan 121/71 to 135/85: take HALF Valsartan pill Over 136/86: take the whole Valsartan pill 14. Stop any control pills and don't use them for one month after surgery 15. Absolutely no smoking or vaping, or marijuana until the surgery and for at least the first 4 weeks. Only nicotine patches are allowed. 16. Send me weight measurements on Saturday01/04/24 and then on Saturday01/08/24, the day of surgery before you go to the hospital. 17. Avoid any steroids by mouth for any reason. Let me know if someone prescribes them to you 18. These instructions supersede anything else you read in the handbook, anything you watched in videos or classes or you were told by any other provider. If there is any conflict, you follow the above instructions and nothing else. Orders: Orders TSH reflex Free T4 Today E66.01 - Morbid (severe) obesity due to excess calories Lipid Panel Today E66.01 - Morbid (severe) obesity due to excess calories Type and Screen Today E66.01 - Morbid (severe) obesity due to excess calories C Reactive Protein Today E66.01 - Morbid (severe) obesity due to excess calories Partial Thromboplastin Time Today E66.01 - Morbid (severe) obesity due to excess calories Insulin Today E66.01 - Morbid (severe) obesity due to excess calories Comprehensive Met. Panel Today E66.01 - Morbid (severe) obesity due to excess calories Hemoglobin A1c Today E66.01 - Morbid (severe) obesity due to excess calories Prothrombin Time INR Today E66.01 - Morbid (severe) obesity due to excess calories Complete Blood Count Auto Diff Today E66.01 - Morbid (severe) obesity due to excess calories Medications: New sucralfate 10 mL PO BID 600 mL 2RF K21.9 - Gastro-esophageal reflux disease without esophagitis pantoprazole 40 mg PO DAILY 90 tabs 0RF K21.9 - Gastro-esophageal reflux disease without esophagitis ondansetron Only take one every 12 hours as needed if you have nausea 4 mg PO BID 20 tabs 0RF nausea and vomiting R11.0 - Nausea polyethylene glycol 3350 (Miralax) Mix each packet with 8oz of water, Crystal light, or Gatorade zero, or Propel and do 7 packets on 01/06/24 and another 7 packets on 01/07/24 17 grams PO DAILY 14 ea 0RF Z01.818 - Encounter for other preprocedural examination
[2023-12-30 09:22] VITALS: BMI 40.6
== END 2023-12-30 09:25 | disposition home or self-care (01) ==
LOC: HO.HBS 08:07
PROVIDERS: Visit Provider Surgery
DX: E66.01 Morbid (severe) obesity due to excess calories (principal); Z68.39 Body mass index [BMI] 39.0-39.9, adult
CPT/HCPCS: 99499

== ENCOUNTER → 2023-12-30 08:07 | Outpatient (BNVA) | payer BC, SELFPAY | PROVIDERS: Visit Provider Surgery | DX: E66.01 Morbid (severe) obesity due to excess calories (principal) ==

== ENCOUNTER 2024-01-08 09:59 | Inpatient (IN) | payer BC, SELFPAY ==
[2023-12-31 13:06] VITALS: BMI 40.1
[2024-01-06 08:39] LABS: MANUAL DIFF FLAG NO
[2024-01-06 08:57] LABS: Basophils Percent Auto 0.4 % (0-2); Eosinophils Absolute Auto 0.1 X10*3/uL (0.0-0.4); Hematocrit 47.3 % (37.0-47.0); Hemoglobin 16.6 g/dl (12.0-16.0); Imm Gran Abs Auto 0.02 X10*3/uL (0.00-0.03); Imm Gran Pct Auto 0.3 % (0.0-0.4); Lymphocytes Absolute Auto 2.2 X10*3/uL (1.2-4.9); Lymphocytes Percent Auto 31.1 % (20-40); Mean Corpuscular HGB Conc 35.1 g/dl (31.0-35.0); Mean Corpuscular Hemoglobin 31.2 pg (27.0-33.0); Mean Corpuscular Volume 88.9 fL (80.0-98.0); Mean Platelet Volume 10.8 fL (9.4-12.3); Monocytes Absolute Auto 0.5 X10*3/uL (0.1-1.2); Monocytes Percent Auto 7.1 % (2-11); Neutrophils Absolute Auto 4.1 x10*3/uL (2.0-8.3); Neutrophils Percent Auto 59.1 % (45-73); Platelet Count 281 X10*3/uL (160-400); Red Blood Count 5.32 X10*6/uL (4.20-5.50); Red Cell Distribution Width 12.3 % (11.0-16.0)
[2024-01-06 09:04] LABS: Prothrombin Time 12.4 SEC (11.1-13.3)
[2024-01-06 09:07] LABS: Partial Thromboplastin Time 29.5 SEC (26.0-36.8)
[2024-01-06 10:01] LABS: Estimated Average Glucose 111 mg/dL; Hemoglobin A1C 148.5369 umol/L; Hemoglobin A1c % 5.5 % (<6.0)
[2024-01-06 10:34] LABS: Alanine Aminotransferase 23 U/L (0-31); Albumin Level 4.2 g/dL (3.5-5.0); Alkaline Phosphatase 70 U/L (39-117); Anion Gap 14 (12-20); Aspartate Amino Transferase 20 U/L (5-31); Bilirubin Total 0.7 mg/dL (0.0-1.0); Blood Urea Nitrogen 16 mg/dL (9-16); C Reactive Protein 2.34 mg/dL (< or = 0.50); Calcium 9.6 mg/dL (8.4-10.2); Carbon Dioxide 26 mmol/L (22-29); Chloride 102 mmol/L (96-108); Cholesterol 216 mg/dL (<200); Creatinine Clr Calc Pharmacy 101.4; Estimated Glomerular Filt Rate > 60; Glucose Random 98 mg/dL (60-115); HDL Cholesterol 35 mg/dL (>40); LDL Cholesterol Calculated 162 mg/dL (<100); Potassium 2.9 mmol/L (3.3-5.1); Sodium 139 mmol/L (135-145); Total Protein 7.5 g/dL (6.5-8.0); Triglycerides 97 mg/dL (<150)
[2024-01-06 10:43] LABS: Insulin 5 uU/mL (2-29); TSH reflex Free T4 0.64 uIU/mL (0.32-4.0)
--- NOTE | 2024-01-06 14:22 | P.CONAN_ITS ---
Documented by User: Janel Hernandez NP 01/07/24 10:35 HPI - Anesthesia Eval Consult details Narrative: 58yo F for Gastrectomy Sleeve-EGD, possible diaphragmatic hernia, possible ventral hernia, possible open, Cholecystectomy Laparoscopic Critically low K at 2.9 on 01/06/24. Sent to [place] [facility] by bariatrics provider. IV repletion. Will repeat DOS. PMFSH Active Problems Active Problems: All Active Problems Hypokalemia (Acute) Obesity (Acute) Constipation (Acute) Adjustment disorder, unspecified (Acute) Cholelithiasis (Acute) DJD (degenerative joint disease) (Acute) Hypertension (Acute) Morbid obesity (Acute) Past Medical History Medical History Back pain GERD (gastroesophageal reflux disease) Cholelithiasis DJD (degenerative joint disease) Hypertension Morbid obesity Family History Family History Father Bone cancer Surgical History Surgical History History of esophagogastroduodenoscopy (EGD) History of ventral hernia repair History of hysterectomy History of delivery Social History Social History Are you a primary spiritual care coordinator to a significant other at home: No Do you presently have visiting nurse or other home services: No Alcohol intake: current Alcohol intake frequency: does not drink Alcohol type: hard liquor Patient Tobacco Use Status: Current everyday Tobacco user Tobacco use type: Cigarette Cigarette Packs Per Day: 8 Cigarettes Per Day: 160.0 Years Smoked: 43 Patient Interested in Nicotine Replacement: Yes Use of substances other than those prescribed or required for medical reasons: No Have you been hit, kicked, punched, or otherwise hurt by someone within the past year? If so, by whom?: No Are you DNR?: No Advance Directives: No (daughter is primary contact) Advance Directives Information Provided: Yes Advance Directives on File: No Recently lost weight without trying: No Eating poorly because of decreased appetite: No Nutrition Risks: No Nutritional Risk Poor oral hygiene: No (extracted teeth) Meds Allergies Allergy/AdvReac Type Severity Reaction Status Date / Time Sulfa (Sulfonamide Allergy Mild rash Verified 12/30/23 08:59 Antibiotics) Home Medications ?Medication ?Instructions ?Recorded ?Confirmed ?Last Taken ?Type ascorbate calcium (vitamin C) 500 500 mg PO DAILY 10/25/23 01/08/24 01/07/24 History mg tablet elderberry fruit 50 mg/5 mL oral 50 mg PO DAILY 10/25/23 12/31/23 Unknown History syrup valsartan 160 mg tablet 160 mg PO DAILY 10/25/23 01/08/24 01/07/24 History hydrocodone 10 mg-acetaminophen 1 tab PO Q8H PRN Pain, Moderate 11/01/23 01/08/24 01/08/24 History 325 mg tablet hydrochlorothiazide 25 mg tablet 25 mg PO DAILY 01/08/24 01/08/24 01/08/24 History Exam Height,Weight and Vital Signs: Height 5 ft 0.5 in Weight 94.801 kg Pertinent Lab Results Pertinent Lab Results: Laboratory Tests 12/27/23 01/06/24 01/06/24 09:28 08:30 08:37 WBC 7.0 RBC 5.32 Hgb 16.6 H Hct 47.3 H MCV 88.9 MCH 31.2 MCHC 35.1 H RDW 12.3 Plt Count 281 MPV 10.8 Immature Gran % (Auto) 0.3 Neut % (Auto) 59.1 Lymph % (Auto) 31.1 [place] % (Auto) 7.1 Eos % (Auto) 2.0 Baso % (Auto) 0.4 Lymph # (Auto) 2.2 [place] # (Auto) 0.5 Eos # (Auto) 0.1 Baso # (Auto) 0.0 Abs Immat Gran (auto) 0.02 Absolute Neuts (auto) 4.1 Absolute Nucleated RBC 0.000 Nucleated RBC % (auto) 0.0 PT 12.4 INR 1.0 APTT 29.5 Sodium 139 Potassium 2.9 L* Chloride 102 Carbon Dioxide 26 Anion Gap 14 BUN 16 Creatinine 0.63 Estim Creat Clear Calc 101.4 Estimated GFR > 60 Random Glucose 98 Estimat Average Glucose 111 Hemoglobin A1c % 5.5 Insulin Level 5 Calcium 9.6 Total Bilirubin 0.7 AST 20 ALT 23 Alkaline Phosphatase 70 C-Reactive Protein 2.34 H Total Protein 7.5 Albumin 4.2 Triglycerides 97 Cholesterol 216 H LDL Cholesterol, Calc 162 H HDL Cholesterol 35 L TSH 0.64 Blood Type A Positive A Positive Antibody Screen NEGATIVE NEGATIVE Assessment and Plan Assessment Anesthesia Assessment: Chart Reviewed Documented by User: Elaina Atkinson MD 01/08/24 12:16 PMFSH Past Medical History Medical History Back pain GERD (gastroesophageal reflux disease) Cholelithiasis DJD (degenerative joint disease) Hypertension Morbid obesity Family History Family History Father Bone cancer Surgical History Surgical History History of esophagogastroduodenoscopy (EGD) History of ventral hernia repair History of hysterectomy History of delivery History of Problems with Anesthesia: No Social History Social History Are you a primary spiritual care coordinator to a significant other at home: No Do you presently have visiting nurse or other home services: No Alcohol intake: current Alcohol intake frequency: does not drink Alcohol type: hard liquor Patient Tobacco Use Status: Current everyday Tobacco user Tobacco use type: Cigarette Cigarette Packs Per Day: 8 Cigarettes Per Day: 160.0 Years Smoked: 43 Patient Interested in Nicotine Replacement: Yes Use of substances other than those prescribed or required for medical reasons: No Have you been hit, kicked, punched, or otherwise hurt by someone within the past year? If so, by whom?: No Are you DNR?: No Advance Directives: No (daughter is primary contact) Advance Directives Information Provided: Yes Advance Directives on File: No Recently lost weight without trying: No Eating poorly because of decreased appetite: No Nutrition Risks: No Nutritional Risk Poor oral hygiene: No (extracted teeth) Meds Allergies Allergy/AdvReac Type Severity Reaction Status Date / Time Sulfa (Sulfonamide Allergy Mild rash Verified 12/30/23 08:59 Antibiotics) Home Medications ?Medication ?Instructions ?Recorded ?Confirmed ?Last Taken ?Type ascorbate calcium (vitamin C) 500 500 mg PO DAILY 10/25/23 01/08/24 01/07/24 History mg tablet elderberry fruit 50 mg/5 mL oral 50 mg PO DAILY 10/25/23 12/31/23 Unknown History syrup valsartan 160 mg tablet 160 mg PO DAILY 10/25/23 01/08/24 01/07/24 History hydrocodone 10 mg-acetaminophen 1 tab PO Q8H PRN Pain, Moderate 11/01/23 01/08/24 01/08/24 History 325 mg tablet hydrochlorothiazide 25 mg tablet 25 mg PO DAILY 01/08/24 01/08/24 01/08/24 History Exam Airway Mallampati Class: III TM Dist: >3cm Neck ROM: Full Loose/Missing/Broken Teeth: No Heart: RRR Lungs: CTA Assessment and Plan Assessment Anesthesia Assessment: Anesthesia Plan Discussed Final Anesthetic Review History of Problems with Anesthesia: No NPO: Yes ASA Class: II Final Preanesthetic Review: Meds/Allgs Chart Reviewed, Consent Obtained/Reviewed and Anes Risks/Benef Reviewed Patient Risk: Low Procedure Risk: Intermediate Anesthetic Plan Anesthetic Plan: GA Disposition: Standard PACU
[2024-01-08] VITALS (22 sets, daily range): BP systolic 120–169; BP diastolic 66–102; PULSE 86–105; RESP 12–21; TEMP 35.9–36.7; O2SAT 92–98
[2024-01-08] MEDS: Aprepitant 32 MG/4.4 ML VIAL IVPUSH (11:05)
[2024-01-08] MEDS: Lactated Ringers 1,000 ML 100 ML IVCONT ×2 (11:06→17:55)
[2024-01-08] MEDS: Lactated Ringers 1,000 ML 999 ML IV (11:06)
[2024-01-08 11:25] LABS: Anion Gap 16 (12-20); Carbon Dioxide 26 mmol/L (22-29); Chloride 103 mmol/L (96-108); Potassium 3.9 mmol/L (3.3-5.1); Sodium 141 mmol/L (135-145)
--- NOTE | 2024-01-08 11:45 | PHA.MEDREC ---
Pharmacy Consult ? Medication Reconciliation Pharmacy has reviewed the medication reconciliation done by RN.
--- NOTE | 2024-01-08 12:35 | MHC.SHP ---
Pre-Procedural Eval Section A - 24 Hr Update-Section A only Date of Service: 01/08/24 The patient is an INPATIENT: Yes The patient has been examined within 24 hours of the surgical procedure. The History & Physical has been completed within 30 days and I have reviewed it.: Yes Section B - Complete if H&P > 30 days Chief Complaint: Obesity Relevant Family History (Specify if Yes): No Relevant Social History: None Present Medications: None Medical History: No relevant PMH History of Previous Operations: No relevant previous surgery Allergies: Allergies Allergy/AdvReac Type Severity Reaction Status Date / Time Sulfa (Sulfonamide Allergy Mild rash Verified 12/30/23 08:59 Antibiotics) Review of Systems Sugical H&P ROS: Negative: Constitution, Cardiovascular, Respiratory, Neurological, Psychiatric, Hem-Onc, Allergic/Immunologic, Gastrointestinal, Genitourinary, Musculoskeletal, Integumentary, Endocrine and Eyes/Ears/Nose/Throat Exam Surgical H&P Exam: Normal: HEENT, Normal: Heart, Normal: Lungs, Normal: Extremities, Normal: Abdomen, Normal: Skin and Normal: Neurological Plan Diagnosis/Plan: Unchanged I have reviewed the history and physical and performed a pertinent physical examination on my patient. No changes have occurred unless specified. Time Spent With Patient Time: Total time managing care of this patient today ____ minutes.
--- NOTE | 2024-01-08 12:40 | P.BOP_ITS ---
Brief Operative Note Date of Service: 01/08/24 Pre-op diagnosis: Severe obesity with comorbidities (see below) Post-op diagnosis: same (& congenital abdominal adhesions) Procedure: INITIAL PATIENT BMI ON PRESENTATION AT OUR OFFICE: 44.3 kg/m2 LAST BMI BEFORE SURGERY: 38.7 kg/m2 COMORBIDITIES: hypertension, DJD, GERD, liver steatosis ?The patient presented to the Weight Management Program with significant obesity that was negatively impacting the patient's comorbidities as listed above.? The program is a phased program with a special focus on preoperative medical weight management to promote substantial weight loss and prepare the patients for the second phase of the program: bariatric surgery. The patient participated in an intensive weekly lifestyle ?intervention and exercise program during which the patient ?has lost between the initial office visit and the last preoperative visit 25.7 lbs, or 10.14% of initial actual body weight. It was deemed appropriate for the patient to now have bariatric surgery. In light of the curr ent Covid-19 pandemic and the well documented strong association of obesity and increased risk of worse outcomes if infected with Covid-19 (REFERENCES: https://pubmed.ncbi.nlm.nih.gov/20671516/ ,? https://pubmed.ncbi.nlm.nih.gov/46244299/ ), any delay in undergoing bariatric surgery may lead to the patient's worsening health condition and increased?risk of more severe Covid-19 disease if infected. In addition a recent?study from [facility] published in [employer] on 09/04/2021 ([email or web address]) found that, among patients with obesity, substantial weight loss achieved with surgery was associated with improved outcomes of COVID-19 infection. The findings suggest that obesity can be a modifiable risk factor for the severity of COVID-19 infection. In addition, the patient met the BMI-criteria for bariatric surgery based on the BMI on initial presentation. The patient should not be penalized for achieving such weight loss because ?it is not sustainable long-term without surgical intervention and it was achieved in preparation for bariatric surgery ?under my direction and based on my published research ([email or web address]).[email or web address] and? https://www.soard.org/article/[email or web address](23)61430-X/pdf ) ?that a 10% preoperative weight loss improves long-term weight loss after surgery and reduces perioperative complications.? Insurance carriers such as [facility] have endorsed my recommendations ?and have included in their policies criteria to include a 10% preoperative weight loss requirement. PROCEDURE: Esophago-gastroscopy, laparoscopic lysis of adhesions, laparoscopic sleeve gastrectomy and laparoscopic gastropexy INDICATIONS: This is a 58 year-old female who was electively scheduled for laparoscopic, possibly open sleeve gastrectomy. The risks and complications of the procedure were discussed with the patient in advance, particularly the possibility of ; pulmonary embolism; staple line leak; bleeding; GERD; cardiac, pulmonary, or renal complications; as well as long-term problems such as insufficient weight loss, vitamin deficiency, strictures, or ulcers. The patient understood all the risks, and was in agreement to proceed with surgery. DESCRIPTION OF PROCEDURE: After informed consent was obtained from the patient, the patient was given preoperative antibiotics, and was transferred to the operating room. After successful induction of general anesthesia, pneumatic compression devices were placed on both lower extremities. An upper endoscopy was performed next. The oropharynx and esophagus appeared to be within normal limits. There was no diaphragmatic hernia present consistent with the findings of the preoperative upper GI. The stomach was entered. Then after all fluid and air were suctioned and the stomach was fully decompressed, the scope was withdrawn and secured in the mid esophagus. The patient was then prepped and draped in the usual sterile manner, and abdominal access was established at the right upper quadrant with the Aaron technique. A 12 mm blunt port was inserted, and the abdomen was insufflated with CO2 to a pressure of 15 mmHg. Under direct visualization, additional ports were placed, specifically two 5 mm Versi-step ports to the left upper quadrant, and a 5 mm Versi-Step port to the right upper quadrant. 1% lidocaine plain was used to infiltrate all port sites as well as all fascia defects. Using the EndoClose suture passer device, I placed a #1 Polysorb tie across the falciform ligament in order to retract it up against the abdominal wall and prevent injury of the ligament with our instruments during the procedure. Following that, the patient was placed in a steep reverse Trendelenburg position. An additional 5 mm port was placed to the right flank for the Mediflex retractor that was used to retract the left lobe of the liver. The gastro-esophageal fat pad was opened with the ultrasonic device (Thunderbeat, Olympus) and the anterior esophagus and hiatus were exposed. The angle of His was opened with the ultrasonic device the fundus of the stomach from any diaphragmatic and splenic attachments. I then opened the gastrocolic ligament between the transverse colon and the greater curvature of the stomach with the ultrasonic device to enter the lesser sac and facilitate the ligation of the short gastric vessels. I started at a mid-point along the greater curvature and using the Thunderbeat, all short gastric vessels were divided all the way to the angle of His until the left joy was completely dissected at its entirety. I then divided the gastro-colic ligament distally to a distance of about 3-4 cm proximal to the pylorus. There were extensive congenital adhesions between the pancreas and posterior gastric wall. Those were lysed completely with the ultrasonic device. Adhesiolysis took approximately 45 min to complete. The stomach was then divided transversely with three Endo SHANTI-45 purple and three SHANTI-60 articulating purple loads using the SIGNIA stapler and loads. Every effort was made that the gastric sleeve had a tubular shape and an even caliber throughout. Once the sleeve resection was completed, the staple line of the gastric sleeve was reinforced with Hemoclips. The resected stomach was retrieved without difficulty from the Aaron port. A gastropexy was then performed in order to prevent postoperative GERD and partial gastric volvulus. Several interrupted 2.0 Surgidac sutures were placed between the sleeve's staple line and the previously divided greater omentum and gastro-colic ligament using the Endo-Stitch device. ?An upper endoscopy was performed. There was no narrowing at the GE junction. The scope was easily advanced all the way to the pylorus which was clearly visualized. There was no narrowing anywhere and the sleeve's caliber was even throughout. The sleeve's staple line was inspected and there was no evidence of ischemia, bleeding or dehiscence. At that point the gastroscope was withdrawn from the patient?s mouth while we were decompressing the bowel and the stomach from any remaining air. I looked into the lesser sac to see how the sleeve was situating and it was situating well. There was no bleeding from the staple line, spleen, or short gastric vessels. The Mediflex retractor was removed, and the undersurface of the liver was inspected and there was no bleeding. The patient was placed in supine position. I closed the fascial defect of the 12 mm port site with a figure of eight #1 Polysorb suture. Then 30cc Ropivacaine plain with 10 mg of Dexamethasone were used to infiltrate the fascial closure as well as all skin incisions. A total of 5 ml Zynrelef was applied in the Aaron wound. At this point, the abdomen was deflated, all ports were removed under direct vision, and no bleeding was noted from any of the port sites. The skin incisions were irrigated with saline and were closed with 4-0 absorbable monofilament sutures. Steri-Strips and OpSites were used to cover all incisions. The patient was extubated and was transferred in stable condition to the recovery room for further care. I was present and performed all valencia parts of the procedure. Mr. Alberto was the executive staff assistant. There were no residents to assist with this case. Morro Ruelas MD, PhD, FACS Surgeon: Kyler Ruelas MD Anesthesia: GETA, local and other (TAP block and 5ml of Zynrelef) Was an Machine Zipper Trimmer used for this Procedure?: No Machine Zipper Trimmer: Dick Alberto Estimated blood loss (mL): 10 IV fluids (mL): 2,500 Urine output (mL): 0 (No Coon to record output) Pathology: other (Stomach) Condition: stable Disposition: PACU
--- NOTE | 2024-01-08 12:43 | P.PNGS_ITS ---
Subjective Subjective Date of Service: 01/09/24 Interval history: Feels well. Mild incisional pain. She is tolerating phase 1 bariatric diet Physical Exam 2 Vital Signs: Vital Signs: Last Vital Signs Temp 96.7 F L 01/08/24 11:07 Pulse 93 01/08/24 11:07 Resp 16 01/08/24 11:07 BP 140/90 H 01/08/24 11:07 Pulse Ox 98 01/08/24 11:07 O2 Del Method Room Air 01/08/24 11:07 BMI result Body Mass Index 40.1 GI: Inspection: Yes normal to inspection, Yes incision (clean, dry and intact) and Yes obesity Palpation (GI): Soft to palpation Extrem: Right lower extremity: normal to inspection (no calf tenderness) L eft lower extremity: normal to inspection (no calf tenderness) Objective Data Active Medications Albuterol Sulfate (Albuterol Sulfate (0.083%) 2.5 Mg/3 Ml Vial.Neb) 2.5 mg INHALE ONCE PRN PRN Reason: Wheezing Stop: 01/08/24 18:16 Fentanyl (Fentanyl Citrate/Pf 100 Mcg/2 Ml Vial) 25 mcg IVPUSH Q5M PRN; Protocol PRN Reason: Pain, Moderate(Pain Scale 4-6) Stop: 01/08/24 18:16 Hydromorphone HCl (Hydromorphone Hcl 0.5 Mg/0.5 Ml Syringe) 0.25 mg IVPUSH Q5M PRN; Protocol PRN Reason: Pain, Severe (Pain Scale 7-10) Stop: 01/08/24 18:16 Lactated Ringer's (Lr) 1,000 mls @ 100 mls/hr IVCONT .Q10H AARTI Last Admin: 01/08/24 11:06 Dose: 100 mls/hr Documented By: CARLTON Ondansetron HCl (Ondansetron Hcl 4 Mg/2 Ml Vial) 4 mg IVPUSH ONCE PRN PRN Reason: Nausea and Vomiting Stop: 01/08/24 18:16 Labs 01/09/24 06:16 01/09/24 06:16 Labs: Laboratory Results - last 24 hr 01/08/24 10:58 Anion Gap 16 Procedures Date of Service Date of Service: 01/09/24 Progress Note: A&P Assessment and plan (1) Obesity: Status: Acute Assessment and Plan: s/p laparoscopic sleeve gastrectomy, lysis of adhesions and gastropexy Doing well Will check am labs and if OK the patient will be discharged home (2) BMI 38.0-38.9,adult: Status: Acute (3) Hypertension: Status: Acute (4) DJD (degenerative joint disease): Status: Acute (5) Cholelithiasis: Status: Acute (6) GERD (gastroesophageal reflux disease): Status: Acute (7) Steatosis, liver: Status: Acute (8) S/P laparoscopic sleeve gastrectomy: Status: Acute (9) Tobacco abuse: Status: Acute (10) Congenital intra-abdominal adhesions: Status: Acute Time Spent With Patient Time: Total time managing care of this patient today ____ minutes. Quality Stroke Does the patient have a stroke diagnosis?: No VTE Prior VTE?: No VTE Risk Level:: Surgical - moderate VTE Device Contraindication: N/A - Device Ordered VTE Drug Contraindication: Treatment Not Indicated
[2024-01-08] MEDS: Albuterol/Iprat 2.5/0.5MG 3 ML AMPUL.NEB INHALE ×2 (15:22→19:55)
--- NOTE | 2024-01-08 15:33 | P.DS_ITS ---
DS: Providers Provider Date of Service: 01/09/24 Date of admission: 01/08/24 09:59 Primary care physician: Unknown Physician DS: Diagnosis Discharge Diagnosis (1) Obesity: Status: Acute (2) BMI 38.0-38.9,adult: Status: Acute (3) Hypertension: Status: Acute (4) DJD (degenerative joint disease): Status: Acute (5) Cholelithiasis: Status: Acute (6) GERD (gastroesophageal reflux disease): Status: Acute (7) Steatosis, liver: Status: Acute DS: Summary Hospital Course Hospital Course: ADMITTING DIAGNOSIS: morbid obesity, htn, tobacco abuse, hypokalemia ? DISCHARGE DIAGNOSIS: same, s/p laparoscopic sleeve gastrectomy ? PAST SURGICAL HISTORY: hysterectomy, ventral hernia repair, cesarian section ? PROCEDURE: upper endoscopy, laparoscopic sleeve gastrectomy with gastropexy ? DISCHARGE SUMMARY: ? History of Present Illness: ? The patient is a?58 year-old woman with a BMI of?44.2 kg/m2 and associated co- morbidities as described above. The patient had extensive work-up,lost?22.1 lbs preoperatively and was electively scheduled for laparoscopic, possible open sleeve gastrectomy and gastropexy. Risks and complications of the surgery were discussed with the patient in advance, particularly the possibility of , pulmonary embolism, anastomotic leak, bleeding, bowel injury, GERD, cardiac, renal or pulmonary complications. The patient understood all the risks and was in agreement with the surgical plan. ? Hospital Course: ? The patient underwent an uneventful laparoscopic sleeve gastrectomy with gastropexy on the day of admission. Postoperatively, the patient was transferred to the surgical floor. The patient received IV Acetaminophen and IV dilaudid for pain control. Patient was started on bariatric phase 1 diet POD #0. On postoperative day one, the patient was feeling well without nausea, vomiting, fevers, or tachycardia. The patient had some mild incisional pain and the abdomen was soft. ? On the morning of postoperative day one, the patient was continued on 1 ounce of water or ice every half hour. During the day, the patient did fairly well, having some incisional pain, but able to ambulate adequately and to tolerate liquids well. ? Since the patient is doing well, we decided that the patient was ready to be discharged. The patient was given instructions to follow-up with me next week and to call my office for any fever over 101, persistent abdominal pain, nausea, vomiting, GERD, symptoms of DVT such as calf tenderness, or leg swelling, or pulmonary embolism such as chest pain or shortness of breath. The patient was also instructed to drink 40-60 ounces of liquids per day using the 1-ounce cups. The patient had been given prescriptions for Tylenol for pain, Zofran prn for nausea, and pantoprazole and carafate previously. The patient was encouraged to ambulate and use the incentive spirometer. The patient was allowed to shower, but no baths, and encouraged to stay active at home. All of these instructions were given to the patient personally. All questions were answered and the patient understood all instructions, the instructions were also given to the patient in print. Time Attestation Total time managing care of this patient today: 25 mintues. Discharge Coordination Time (in mins): 25 Quality: Safe Use of Opioids Does Pt have an Active Cancer Diagnosis on the Problem List?: No Quality: Stroke Does the patient have a stroke diagnosis?: No Physical Exam Vital Signs: Vital Signs: Last Vital Signs Temp 98.0 F 01/08/24 15:14 Pulse 94 01/08/24 15:24 Resp 20 01/08/24 15:24 BP 131/76 01/08/24 15:24 Pulse Ox 95 01/08/24 15:24 O2 Del Method Shovel Mask 01/08/24 15:24 O2 Flow Rate 6 01/08/24 15:24 BMI result Body Mass Index 40.1 DS: Data Data Completed and Pending Pending studies at discharge: Pending at discharge 01/08/24 14:16 Surgical [PTH] Routine 01/08/24 14:20 Surgical [PTH] Routine Labs on day of discharge: Laboratory Results - last 24 hr 01/08/24 10:58 Sodium 141 Potassium 3.9 D Chloride 103 Carbon Dioxide 26 Anion Gap 16 Discharge Plan Discharge Anticipated Discharge Date/Time: 01/09/24 10:00 Patient Disposition: Home, Self-Care Discharge Diagnosis: s/p laparoscopic sleeve gastrectomy Referrals: Physician,Unknown J [Physician] - 1 Week Discharge Medications: Continued docusate sodium [Colace] 100 mg capsule 100 mg PO DAILY Qty: 90 0RF sucralfate 100 mg/mL suspension 10 ml PO BID Qty: 600 2RF potassium chloride 20 mEq tablet extended release 20 meq PO DAILY Qty: 14 0RF pantoprazole 40 mg tablet,delayed release (DR/EC) 40 mg PO DAILY Qty: 90 0RF ondansetron 4 mg tablet,disintegrating 4 mg PO BID Qty: 20 0RF Rx Instructions: Only take one every 12 hours as needed if you have nausea Held hydrochlorothiazide 25 mg tablet 25 mg PO DAILY Hold Instructions: Resume on 01/10/24. Check your blood pressure every morning as soon as you wake up and send it to Dr. Ruelas. Do no take the blood pressure medication if the blood pressure is below 120/70. Wait every day to hear back from Dr. Ruelas before you take the medication. valsartan 160 mg tablet 160 mg PO DAILY Hold Instructions: Resume on 01/10/24. Check your blood pressure every morning as soon as you wake up and send it to Dr. Ruelas. Do no take the blood pressure medication if the blood pressure is below 120/70. Wait every day to hear back from Dr. Ruelas before you take the medication. hydrocodone-acetaminophen 10-325 mg tablet 1 tab PO Q8H PRN (Reason: Pain, Moderate) Hold Instructions: until discussed with DR Ruelas Discontinued elderberry fruit 50 mg/5 mL syrup 50 mg PO DAILY ascorbate calcium (vitamin C) 500 mg tablet 500 mg PO DAILY polyethylene glycol 3350 [Miralax] 17 gram powder in packet 17 g PO DAILY Qty: 14 0RF Rx Instructions: Mix each packet with 8oz of water, Crystal light, or Gatorade zero, or Propel and do 7 packets on 01/06/24 and another 7 packets on 01/07/24 Discharge Orders: Discharge Order (Routine); Ordered 01/09/24 Ordered By: Kyler Ruelas Activity on Discharge: No heavy lifting Stand Alone Forms: Patient Portal Discharge page Print Language: Occitan Care Plan Goals: weightloss Health Concerns: morbid obesity Plan of Treatment: No tub baths, sex or returning to work until discussed at first post op appointment. No exercise, alcohol, tobacco or illegal drug use. Continue to use incentive spirometer hourly while awake. Walk in home for 5- 10 minutes every 2 hours during the first week. Follow all instructions in the bariatric handbook and call with any questions.Discharge Instructions 1. Please call your doctor or come back to the emergency room should any new symptoms arise. 2. You will receive a courtesy call from [facility] 24-48 hours after discharge. 3. Activity: abstain from alcohol, practice limited stair climbing, no bending, no driving, no exercise, no illicit substances, no lifting, no sex, no tub bath, no work. 4. Diet: continue as discussed with Dr. Ruelas. 5. Dressing Change/Wound Care: Your incision is covered by clear bandages and guaze underneath. If the area is tender, you may apply an ice pack for short intervals (no more than 20 minutes on, followed by at least 20 minutes off). Do not apply heat. Do not use creams, lotions, or topical antibiotics unless instructed to do so by your surgeon. These can cause infection or allergic reaction. 6. Call your doctor if: - Your temperature exceeds 101.5 F - You experience excessive pain or swelling - You have an unexpected reaction to medication - You have excessive bleeding - You experience continued vomiting/nausea - Your incision begins to separate - Your incision shows signs of infection such as increased redness, swelling, excessive pain, heat, or drainage (light blood or clear fluid is normal) 7. General instructions: No lifting greater than 5 lbs for 1 week and not more than 20lbs the next 3?weeks. No driving until seen at the office in 5-7 days after surgery. If you do not move your bowels in the next 2 days, please tell?Dr. Ruelas. Please walk around your home every hour or two to prevent blood clots from forming in your legs. You do not need to wake from sleeping to walk. Please sleep in a bed or couch to prevent kinking at the hips and knees. Please take your incentive spirometer (your lung power machine operator) home with you and use it for the next few days to prevent pneumonia. You may shower, no hot tubs, baths or swimming pools.?Please follow the post op diet instructions you are?given by Dr Ruelas? and text me daily at 5-6pm for an update.?If you have any issues or concerns or questions please communicate this to him via text.? The Celebrate shakes have all of the bariatric vitamins you need if you consume these shakes. If you are drinking other protein shakes, you will need to purchase the Celebrate multivitamins and calcium that are available in the [employer] [facility] shop on the first floor of the [facility].??Do not take anything without first discussing with Dr Ruelas. Please make sure you are consuming at least 40 ounces of fluids per day starting the?day AFTER your discharge from the hospital. Always drink 1-2 ml per minute using the 5ml?syringe. If you drink faster you may experience?bloating,?gas pain, burping, nausea or heartburn. In that case please slow down your pace and use the syringe to?understand better the?proper?pace and volume of drinking. Do not hesitate to contact the office with any questions at . The patient's medical history has been reviewed and they are considered low risk for post op DVT and therefore DVT prophylaxis is not considered necessary. Travel after surgery was reviewed. The patient has not disclosed any travel plans during the first 30 days after surgery and they have been advised that within the first 30 days after surgery any bus, plane, train or car travel over 2 hours in duration is contraindicated due to the possibility of developing blood clots from immobility. Any travel, needs to include periods of ambulation of 10 minutes in duration every 2 hours.? The patient was instructed to discuss any plans for travel during this period with their bariatric surgeon. Assessment: stable s/p laparoscopic sleeve gastrectomy Discharge Date/Time: 01/09/24 10:18
[2024-01-08] MEDS: HYDROmorphone HCl 0.5 MG/0.5 ML SYRINGE 0.25 MG IVPUSH ×6 (15:47→23:33)
[2024-01-08 15:54] LABS: Hematocrit 42.6 % (37.0-47.0); Hemoglobin 14.8 g/dl (12.0-16.0)
[2024-01-08 16:09] LABS: Anion Gap 13 (12-20); Blood Urea Nitrogen 12 mg/dL (9-16); Calcium 9.2 mg/dL (8.4-10.2); Carbon Dioxide 25 mmol/L (22-29); Chloride 106 mmol/L (96-108); Creatinine Clr Calc Pharmacy 86.4; Estimated Glomerular Filt Rate > 60; Glucose Random 98 mg/dL (60-115); Potassium 3.4 mmol/L (3.3-5.1); Sodium 141 mmol/L (135-145)
[2024-01-08] MEDS: ceFAZolin Sodium/Dextrose,Iso 2 GM/50 ML PIGGYBACK IV (17:56)
[2024-01-08] MEDS: KCl 20 mEq in 0.9 % Sodium ChL 20 MEQ/1,000 ML IV.SOLN 100 MEQ IVCONT (19:36)
[2024-01-08] MEDS: Famotidine/PF 20 MG/2 ML VIAL IVPUSH (20:08)
[2024-01-08] MEDS: Acetaminophen 1,000 MG/100 ML PIGGYBACK 16.7 MG IV (20:09)
[2024-01-08] MEDS: 0.9 % Sodium Chloride Flush 3 ML SYRINGE IVFLUSH (20:10)
[2024-01-09] MEDS: Acetaminophen 1,000 MG/100 ML PIGGYBACK 16.7 MG IV (02:05)
[2024-01-09 03:26] VITALS: BP 143/78; PULSE 85; RESP 20; TEMP 36; O2SAT 92
[2024-01-09] MEDS: KCl 20 mEq in 0.9 % Sodium ChL 20 MEQ/1,000 ML IV.SOLN 100 MEQ IVCONT (05:45)
[2024-01-09 06:48] LABS: MANUAL DIFF FLAG NO
[2024-01-09 06:56] LABS: Basophils Percent Auto 0.1 % (0-2); Hematocrit 41.9 % (37.0-47.0); Hemoglobin 14.6 g/dl (12.0-16.0); Imm Gran Abs Auto 0.06 X10*3/uL (0.00-0.03); Imm Gran Pct Auto 0.5 % (0.0-0.4); Lymphocytes Absolute Auto 1.2 X10*3/uL (1.2-4.9); Lymphocytes Percent Auto 10.3 % (20-40); Mean Corpuscular HGB Conc 34.8 g/dl (31.0-35.0); Mean Corpuscular Hemoglobin 31.5 pg (27.0-33.0); Mean Corpuscular Volume 90.3 fL (80.0-98.0); Mean Platelet Volume 11.3 fL (9.4-12.3); Monocytes Absolute Auto 0.2 X10*3/uL (0.1-1.2); Monocytes Percent Auto 1.3 % (2-11); Neutrophils Absolute Auto 10.4 x10*3/uL (2.0-8.3); Neutrophils Percent Auto 87.8 % (45-73); Platelet Count 241 X10*3/uL (160-400); Red Blood Count 4.64 X10*6/uL (4.20-5.50); Red Cell Distribution Width 12.3 % (11.0-16.0); White Blood Count 11.9 X10*3/uL (4.8-10.8)
[2024-01-09 07:12] LABS: Anion Gap 16 (12-20); Blood Urea Nitrogen 9 mg/dL (9-16); Calcium 9.1 mg/dL (8.4-10.2); Carbon Dioxide 21 mmol/L (22-29); Chloride 106 mmol/L (96-108); Creatinine Clr Calc Pharmacy 101.4; Estimated Glomerular Filt Rate > 60; Glucose Random 131 mg/dL (60-115); Potassium 3.5 mmol/L (3.3-5.1); Sodium 139 mmol/L (135-145)
[2024-01-09] MEDS: hydroCHLOROthiazide 25 MG TABLET PO (07:29)
[2024-01-09] MEDS: Valsartan 160 MG TABLET PO (07:29)
[2024-01-09] MEDS: Famotidine/PF 20 MG/2 ML VIAL IVPUSH (07:29)
[2024-01-09] MEDS: Potassium Chloride ER 20 MEQ TAB.ER.PRT PO (07:29)
[2024-01-09 07:35] VITALS: BP 134/71; PULSE 80; RESP 14; TEMP 36.9; O2SAT 94
--- NOTE | 2024-01-09 08:21 | HO.POSTANES ---
Post Anesthesia Evaluation Post Anesthesia Evaluation Date of Service: 01/09/24 Vital Signs: Vital Signs Temp Pulse Resp BP Pulse Ox O2 Del Method O2 Flow Rate 01/09/24 07:35 98.5 F 80 14 134/71 94 Nasal Cannula 2 01/09/24 03:26 96.8 F 85 20 143/78 H 92 Nasal Cannula 2 01/08/24 23:22 97.9 F 97 20 129/72 95 Nasal Cannula 2 Anesthesia: General Mental Status: Awake Pain Control: Satisfactory Nausea/Vomiting: None Hydration: Adequate Anesthesia-Related Issues: No Anes. Related Issues
--- NOTE | 2024-01-09 08:54 | MHC.CM.PN ---
Patient is from home w/ . Functionally independent. Denies use of services or DME. PCP is SUDEEP Bravo at [facility]. Patient completed HCP naming agents 1) daughter Una Cabreraanti [phone], 2) spouse Nghia Virk [phone] DP: Patient is medically cleared for dc home self care. to transport.
== END 2024-01-09 10:18 | disposition home or self-care (01) | DRG 403 ==
LOC: HO.SSSA 15:41 → HO.S3 16:53
PROVIDERS: Nurse Practitioner; Physician Assistant Surgical; Admitting Provider Surgery; PCP Nurse Practitioner Family; Visit Provider Surgery
PROC: 0DB64Z3 Excision of Stomach, Percutaneous Endoscopic Approach, Vertical (ICD-10-PCS; CPT 43845; principal; 2024-01-08 11:30)
DX: E66.01 Morbid (severe) obesity due to excess calories (principal); K76.0 Fatty (change of) liver, not elsewhere classified; Q43.3 Congenital malformations of intestinal fixation; E87.6 Hypokalemia; F17.210 Nicotine dependence, cigarettes, uncomplicated; I10 Essential (primary) hypertension; K80.20 Calculus of gallbladder without cholecystitis without obstruction; Z71.6 Tobacco abuse counseling; Z68.38 Body mass index [BMI] 38.0-38.9, adult; Z79.899 Other long term (current) drug therapy
CPT/HCPCS: 43775; 43659; 36415; 80048; 80051; 80053; 80061; 83036; 83525; 84443; 85014; 85018; 85025; 85610; 85730; 86140; 86850; 86900; 86901; 88304; 88305; 88307; 88342; 94640; A4649; C9088; C9145; J0131; J0690; J1100; J1170; J2250; J2405; J2704; J2795; J3010; J3480; J7120

== ENCOUNTER 2024-01-15 10:51 | Outpatient (AMB) | payer BC, SELFPAY ==
--- NOTE | 2024-01-15 11:31 | A.OFFVIS_ITS ---
VS Expanded 01/15/24 11:44 BP 119/73 Blood Pressure Location Rt brachial Blood Pressure Position Sitting Pulse 80 Pulse Source Pulse Oximeter Temp 96.7 F L Temperature Source Temporal Artery Scan Pulse Oximetry 94 Oxygen Delivery Method Room Air Height 5 ft 0.5 in Weight 197 lb BMI 37.8 Body Fat % 41.9 Body Fat Mass 82.4 Fat Free Mass 114.4 Visceral Fat Rating 13.0 Body Water % 41.2 Body Water Mass 81.2 Muscle Mass/Score 108.6 Basal Metabolic Rate/Score 1,580 Intake Visit Reasons: (OV) PO LSG 01/08/24 Allergies Sulfa (Sulfonamide Antibiotics) Allergy (Mild, Verified 01/15/24 11:35) rash HPI Comments Details: 58-year-old female returns to the office today 7 days post sleeve gastrectomy performed on 01/08/2024. Tolerating 3 celebrate 4 in 1 shakes with 1 scoop each and approximately 53 oz of fluid per day. She moved her bowels and has no significant complaints. She continues to take both valsartan and hydrochlorothiazide, half tab each in the morning for systolic blood pressures around 140. She has been communicating with Dr. Ruelas. [facility] Medical History (Updated 01/08/24 @ 19:35 by Kyler Ruelas MD) Back pain GERD (gastroesophageal reflux disease) Cholelithiasis DJD (degenerative joint disease) Hypertension Morbid obesity Surgical History (Updated 01/08/24 @ 15:40 by GREY Jarquin) History of esophagogastroduodenoscopy (EGD) History of ventral hernia repair History of hysterectomy History of delivery Family History Father Bone cancer Social History Household Members: Family Housing: House Are you a primary direct care staffer to a significant other at home: No Do you presently have visiting nurse or other home services: No Alcohol intake: current Alcohol intake frequency: does not drink Alcohol type: hard liquor Patient Tobacco Use Status: Current everyday Tobacco user Tobacco use type: Cigarette Cigarette Packs Per Day: 8 Cigarettes Per Day: 8 Years Smoked: 43 service: No Physical Exam Vital Signs: Last Vital Signs Temp 96.7 F L 01/15/24 11:44 Pulse 80 01/15/24 11:44 BP 119/73 01/15/24 11:44 Pulse Ox 94 01/15/24 11:44 Oxygen Delivery Method Room Air 01/15/24 11:44 BMI result Body Mass Index 37.8 GI Inspection: Yes incision (Clean, dry, intact) Assessment & Plan Assessment & Plan (1) S/P laparoscopic sleeve gastrectomy: Code(s): Z98.84 - Bariatric surgery status Category: Surgical Plan: POD 7 s/p LSG on 01/08/[address] Ruelas Weight loss prior to surgery was 22.1 pounds or 9.5 % TBWL. Original weight on 11/01/2023 was 230 point pounds and op weight was 208.5 pounds. Be sure to text Dr Ruelas exactly 1 week after surgery your weight from your home scale so he can adjust your meal plan. Continue meal plan until f/u rand Jennings in 2 weeks May shower, no submersion in bath for another week Continue abdominal binder with activity and exercise for the next 2 weeks. Exercise prior to surgery was stationary bike and gym membership and may resume No abdominal exercises for 6 weeks post operatively Will be emailed link to post op video for review Reminded of the pace of drinking, 2 mL per minute, 1 oz/15 min.
[2024-01-15 11:44] VITALS: BP 119/73; PULSE 80; TEMP 35.9; O2SAT 94; BMI 37.8
== END 2024-01-15 12:09 | disposition home or self-care (01) ==
PROVIDERS: Visit Provider Physician Assistant Surgical
DX: Z98.84 Bariatric surgery status (principal)
CPT/HCPCS: 99024

== ENCOUNTER → 2024-01-15 10:51 | Outpatient (BNVA) | payer BC, SELFPAY | PROVIDERS: Visit Provider Physician Assistant Surgical ==

== ENCOUNTER 2024-01-27 14:30 | Outpatient (AMB) | payer BC, SELFPAY ==
--- NOTE | 2024-01-27 14:32 | A.OFFVIS_ITS ---
VS Expanded 01/27/24 14:40 BP 121/86 Blood Pressure Location Rt brachial Blood Pressure Position Sitting Pulse 86 Pulse Source Pulse Oximeter Temp 95.9 F L Temperature Source Temporal Artery Scan Pulse Oximetry 96 Oxygen Delivery Method Room Air Height 5 ft 0.5 in Weight 192 lb 6.4 oz BMI 37.0 Body Fat % 40.3 Body Fat Mass 77.4 Fat Free Mass 114.8 Visceral Fat Rating 12.0 Body Water % 42.3 Body Water Mass 81.4 Muscle Mass/Score 109.2 Basal Metabolic Rate/Score 1,576 Intake Visit Reasons: (OV) PO LSG 01/08/24 Sales Representative Printing Required: No Allergies Sulfa (Sulfonamide Antibiotics) Allergy (Mild, Verified 01/15/24 11:35) rash Medication List - Last Reconciled 01/27/24 by GREY Jarquin docusate sodium (Colace) 100 mg PO DAILY hydrochlorothiazide 25 mg PO DAILY hydrocodone-acetaminophen 10-325 mg 1 tab PO Q8H PRN ondansetron 4 mg PO BID pantoprazole 40 mg PO DAILY sucralfate 10 mL PO BID valsartan 160 mg PO DAILY HPI Comments Details: This?a?59?yo female who is s/p LSG without hiatal hernia repair on?01/08/2024. Presents for 3 week post op visit. Weight today is 192.4 pounds, with a BMI of 37. There has been a [] pound weight loss,(initial weight 230 pounds) since starting the program on 11/01/2023 reflecting a []% total body weight loss and a weight loss of [] pounds since surgery (operative weight 208.5 pounds) reflecting a []% TBWL since surgery. No complaints of nausea, emesis, abdominal pain or reflux. Reports infrequent but normal bowel movements every [] days and uses stool softeners regularly. Last BM 7 days ago Original weight on 11/01/2023 was 230 point pounds and op weight was 208.5 pounds. Present meal plan includes: Celebrate 4 in 1 1 scoop 8-10, 1-1 celebrate 4 in 1 2 scoops at 2-4 ZP bar 5-8 drinking 50-60 oz fluids ? Exercise routine includes: none this week stationary bike 315 kareem 7 day per week PFSH Medical History (Updated 01/17/24 @ 00:02 by Gerri Grace) BMI 38.0-38.9,adult Obesity Back pain GERD (gastroesophageal reflux disease) Cholelithiasis DJD (degenerative joint disease) Hypertension Morbid obesity Surgical History History of esophagogastroduodenoscopy (EGD) History of ventral hernia repair History of hysterectomy History of delivery Family History Father Bone cancer Social History (Updated 01/27/24 @ 14:37 by Janette Jensen CMA) Household Members: Family Housing: House Are you a primary health care aide to a significant other at home: No Do you presently have visiting nurse or other home services: No Alcohol intake: current Alcohol intake frequency: does not drink Alcohol type: hard liquor Patient Tobacco Use Status: Current everyday Tobacco user Tobacco use type: Cigarette Cigarette Packs Per Day: 0 Cigarettes Per Day: 8 Years Smoked: 43 service: No Physical Exam Vital Signs: Last Vital Signs Temp 95.9 F L 01/27/24 14:40 Pulse 86 01/27/24 14:40 BP 121/86 01/27/24 14:40 Pulse Ox 96 01/27/24 14:40 Oxygen Delivery Method Room Air 01/27/24 14:40 BMI result Body Mass Index 37.0 GI Other: Clean dry and intact Assessment & Plan Assessment & Plan (1) S/P laparoscopic sleeve gastrectomy: Code(s): Z98.84 - Bariatric surgery status Category: Surgical Plan: Patient has not used her hydrochlorothiazide or valsartan in several days. Additionally, she has been taking her potassium chloride which I have instructed her to stop. We will also encourage her to continue her meal plan and return to the stationary bike. Add bowel meds as listed below. Increase fluids as she is able and return to clinic in 1 month. (2) Constipation: Code(s): K59.00 - Constipation, unspecified Category: Medical Plan: Add senna, 2 tabs at HS and Dulcolax suppository KS x1. Medications: New bisacodyl (Dulcolax (bisacodyl)) 10 mg KS DAILY PRN 12 ea 0RF constipation sennosides (senna) 17.2 mg (2 x 8.6 mg) PO BEDTIME PRN 60 tabs 0RF constipation
[2024-01-27 14:40] VITALS: BP 121/86; PULSE 86; TEMP 35.5; O2SAT 96; BMI 37.0
== END 2024-01-27 15:11 | disposition home or self-care (01) ==
PROVIDERS: Visit Provider Physician Assistant Surgical
DX: Z98.84 Bariatric surgery status (principal); K59.00 Constipation, unspecified
CPT/HCPCS: 99024

== ENCOUNTER → 2024-01-27 14:30 | Outpatient (BNVA) | payer BC, SELFPAY | PROVIDERS: Visit Provider Physician Assistant Surgical ==

== ENCOUNTER 2024-02-26 11:43 | Outpatient (AMB) | payer BC, SELFPAY ==
[2024-02-26 11:27] VITALS: BMI 34.6
--- NOTE | 2024-02-26 11:27 | A.OFFVIS_ITS ---
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 Presents for 6 week post op visit. Weight today is 180.4 pounds, with a BMI of 34.7. There has been a 49.6 pound weight loss,(initial weight 230 pounds) since starting the program on 11/01/2023 reflecting a 21.5% total body weight loss and a weight loss of 28.1 pounds since surgery (operative weight 208.5 pounds) reflecting a 13.4% TBWL since surgery. No complaints of nausea, emesis, abdominal pain or reflux. Reports infrequent but normal bowel movements every 2- 3 days and uses stool softeners regularly. She states she has been busy. She says her life is back to normal. Present meal plan includes: Celebrate 4 in 1 2 scoop 10-12, 6-8 pm zp bar 2-3 drinking 60 oz fluids Exercise routine includes: stationary bike 325 kareem 7 day per week [facility] Medical History (Updated 01/17/24 @ 00:02 by Background Dajarrell) BMI 38.0-38.9,adult Obesity Back pain GERD (gastroesophageal reflux disease) Cholelithiasis DJD (degenerative joint disease) Hypertension Morbid obesity Surgical History History of esophagogastroduodenoscopy (EGD) History of ventral hernia repair History of hysterectomy History of delivery Family History Father Bone cancer Social History (Updated 01/27/24 @ 14:37 by Janette Jensen CMA) Household Members: Family Housing: House Are you a primary acute care assistant to a significant other at home: No Do you presently have visiting nurse or other home services: No Alcohol intake: current Alcohol intake frequency: does not drink Alcohol type: hard liquor Patient Tobacco Use Status: Current everyday Tobacco user Tobacco use type: Cigarette Cigarette Packs Per Day: 0 Cigarettes Per Day: 8 Years Smoked: 43 service: No Telehealth Telehealth Telehealth Platform: Telephone Location of provider rendering services: practice address Location of patient: address on file Patient Identification confirmed using: Name, : Yes Telehealth method: voice only Patient verbally consented to treatment: Yes Patient verbally consented to billing insurance company: Yes Patient informed of any privacy concerns related to visit: Yes Minutes spent on Phone/Video with Pt.: 15 Assessment & Plan Assessment & Plan (1) S/P laparoscopic sleeve gastrectomy: Code(s): Z98.84 - Bariatric surgery status Category: Surgical Plan: Making good progress. Following the meal plan. Recommend continued consistency on the bike. Recommend continue text weekly with weights. Text with any questions. Return to the office in 1 month.
== END 2024-02-26 11:49 | disposition home or self-care (01) ==
LOC: HO.HBS 11:43
PROVIDERS: Visit Provider Physician Assistant Surgical
DX: Z98.84 Bariatric surgery status (principal)
CPT/HCPCS: 99024

== ENCOUNTER → 2024-02-26 11:43 | Outpatient (BNVA) | payer BC, SELFPAY | PROVIDERS: Visit Provider Physician Assistant Surgical | DX: Z98.84 Bariatric surgery status (principal) ==

== ENCOUNTER 2024-03-27 10:38 | Outpatient (AMB) | payer BC, SELFPAY ==
[2024-03-27 09:07] VITALS: BMI 32.4
--- NOTE | 2024-03-27 09:07 | A.OFFVIS_ITS ---
VS Expanded 03/27/24 09:07 Height 5 ft 0.5 in Weight 168 lb 9 oz BMI 32.4 Body Fat % 27 Body Fat Mass 45.6 Fat Free Mass 123.3 Visceral Fat Rating 13 Body Water % 50 Body Water Mass 84.4 Muscle Mass/Score 115.8 Basal Metabolic Rate/Score 1,570 Intake Visit Reasons: (tV) PO LSG 01/08/24 Allergies Sulfa (Sulfonamide Antibiotics) Allergy (Mild, Verified 01/15/24 11:35) rash HPI Comments Details: This?a?59?yo female who is s/p LSG without hiatal hernia repair on?01/08/2024. Presents for 2 month post op visit. Weight today is 168.9 pounds, with a BMI of 32.4. There has been a 61.1 pound weight loss,(initial weight 230 pounds) since starting the program on 11/01/2023 reflecting a 26.5% total body weight loss and a weight loss of 39.6 pounds since surgery (operative weight 208.5 pounds) reflecting a 18.9% TBWL since surgery. No complaints of nausea, emesis, abdominal pain or reflux. Reports infrequent but normal bowel movements every 2- 3 days and uses stool softeners regularly. She states she has been very busy with life. She has been spending time with grandkids. Present meal plan includes: Celebrate 4 in 1 2 scoop 11-1, 3-5 pm zp bar 2-3 drinking 60 oz fluids Exercise routine includes: stationary bike 350 kareem 4-5 day per week [facility] Medical History (Updated 01/17/24 @ 00:02 by Gerri Grace) BMI 38.0-38.9,adult Obesity Back pain GERD (gastroesophageal reflux disease) Cholelithiasis DJD (degenerative joint disease) Hypertension Morbid obesity Surgical History History of esophagogastroduodenoscopy (EGD) History of ventral hernia repair History of hysterectomy History of delivery Family History Father Bone cancer Social History (Updated 01/27/24 @ 14:37 by Janette Jensen CMA) Household Members: Family Housing: House Are you a primary director of career services to a significant other at home: No Do you presently have visiting nurse or other home services: No Alcohol intake: current Alcohol intake frequency: does not drink Alcohol type: hard liquor Patient Tobacco Use Status: Current everyday Tobacco user Tobacco use type: Cigarette Cigarette Packs Per Day: 0 Cigarettes Per Day: 8 Years Smoked: 43 service: No Telehealth Telehealth Telehealth Platform: Telephone Location of provider rendering services: practice address Location of patient: address on file Patient Identification confirmed using: Name, : Yes Telehealth method: voice only Patient verbally consented to treatment: Yes Patient verbally consented to billing insurance company: Yes Patient informed of any privacy concerns related to visit: Yes Minutes spent on Phone/Video with Pt.: 15 Assessment & Plan Assessment & Plan (1) S/P laparoscopic sleeve gastrectomy: Code(s): Z98.84 - Bariatric surgery status Category: Medical Plan: Generally, patient is doing well. She did inquire about adding food into her meal plan. We will continue with: 2 celebrate 4 in 1 shakes with 2 scoops each and 1 meal with 4 forks protein and 4 forks cooked vegetables. She was encouraged to return to using her stationary bike, 350 calories, 7 days a week. She has been able to identify that when she does not do the bike as much for any particular reason such as working on her house or spending time with her grandkids she does not get the results that she is looking for. This has excellent insight and she will resume her bike on a daily basis. She has been encouraged to text with any questions or concerns. She will continue to send weight measurements. Follow-up in the office in 1 month.
== END 2024-03-27 10:41 | disposition home or self-care (01) ==
LOC: HO.HBS 10:38
PROVIDERS: Visit Provider Physician Assistant Surgical
DX: Z98.84 Bariatric surgery status (principal)
CPT/HCPCS: 99024

== ENCOUNTER → 2024-03-27 10:38 | Outpatient (BNVA) | payer BC, SELFPAY | PROVIDERS: Visit Provider Physician Assistant Surgical | DX: Z98.84 Bariatric surgery status (principal) ==

== ENCOUNTER 2024-04-29 11:58 | Outpatient (AMB) | payer BC, SELFPAY ==
--- NOTE | 2024-04-29 11:37 | MHC.OFFVISWM ---
VS Expanded 04/29/24 11:38 Height 5 ft 0.5 in Weight 160 lb 8 oz BMI 30.8 Intake Visit Reasons: (tV) PO LSG 01/08/24 Allergies Sulfa (Sulfonamide Antibiotics) Allergy (Mild, Verified 01/15/24 11:35) rash HPI Comments Details: This?a?59?yo female who is s/p LSG without hiatal hernia repair on?01/08/2024. Presents for 3 month post op visit. Weight today is 160.8 pounds, with a BMI of 30.8. There has been a 69.2 pound weight loss,(initial weight 230 pounds) since starting the program on 11/01/2023 reflecting a 30% total body weight loss and a weight loss of 47.7 pounds since surgery (operative weight 208.5 pounds) reflecting a 22.8% TBWL since surgery. No complaints of nausea, emesis, abdominal pain or reflux. Reports infrequent but normal bowel movements every 2-3 days and uses stool softeners regularly. Taking celebrate MVI She states she has been tired and sore lately. She let her daughter borrow her stationary bike. She spoke w Dr Gannon and asked if she could go back to using a 1/2 banana and TBSP PB with 1 scoop 4 and 1 celebrate. Previously using isopure protein 26 gm / scoop 6-7 coffee SF creamer 12-4 celebrate 4 in 1 1 scoop 1/2 banana, 1 tbsp PB 8 oz almond milk meal 6 pm 4 forks protein and 4 forks veg every other day reccomended meal plan includes: 2 celebrate 4 in 1 shakes with 2 scoops each 1 meal with 4 forks protein and 4 forks cooked vegetables. drinking 60 oz fluids Exercise routine includes: previously stationary bike 350 kareem 4-5 day per week [facility] Medical History (Updated 04/29/24 @ 12:00 by RGEY Jarquin) BMI 38.0-38.9,adult Obesity Back pain GERD (gastroesophageal reflux disease) Cholelithiasis DJD (degenerative joint disease) Hypertension Morbid obesity Surgical History History of esophagogastroduodenoscopy (EGD) History of ventral hernia repair History of hysterectomy History of delivery Family History Father Bone cancer Social History (Updated 01/27/24 @ 14:37 by Janette Jensen CMA) Household Members: Family Housing: House Are you a primary childbirth and infant care teacher to a significant other at home: No Do you presently have visiting nurse or other home services: No Alcohol intake: current Alcohol intake frequency: does not drink Alcohol type: hard liquor Patient Tobacco Use Status: Current everyday Tobacco user Tobacco use type: Cigarette Cigarette Packs Per Day: 0 Cigarettes Per Day: 8 Years Smoked: 43 service: No Telehealth Telehealth Telehealth Platform: Telephone Location of provider rendering services: practice address Location of patient: address on file Patient Identification confirmed using: Name, : Yes Telehealth method: voice only Patient verbally consented to treatment: Yes Patient verbally consented to billing insurance company: Yes Patient informed of any privacy concerns related to visit: Yes Minutes spent on Phone/Video with Pt.: 20 Assessment & Plan Assessment & Plan (1) Obesity (BMI 30-39.9): Code(s): E66.9 - Obesity, unspecified Category: Medical Plan: Patient was doing a meal plan that she thought was correct, however it was incorrect. We will adjusted accordingly. 8-10 am isopure 1 scoop 1-3 pm celebrate 4 in 1, 1-/2 scoop 6 pm meal with 4 forks protein and 4 forks vegetables Encouraged to go to [employer] [facility] to utilize the cardio equipment. She states that she bought a non elevating treadmill that is not working very well for her at home and she let her daughter bar her stationary bike. I encouraged her to go to the gym not only to burn 300 calories per day but also to try the different machines to identify which 1 she would consider purchasing for home use. She states that she will do so. She will additionally take a multivitamin daily. She will follow-up in the office in 1 month.
[2024-04-29 11:38] VITALS: BMI 30.8
== END 2024-04-29 12:05 | disposition home or self-care (01) ==
LOC: HO.HBS 11:58
PROVIDERS: Visit Provider Physician Assistant Surgical
DX: E66.9 Obesity, unspecified (principal)
CPT/HCPCS: 99213

== ENCOUNTER → 2024-04-29 11:58 | Outpatient (BNVA) | payer BC, SELFPAY | PROVIDERS: Visit Provider Physician Assistant Surgical ==

== ENCOUNTER 2024-06-04 14:48 | Outpatient (AMB) | payer BC, SELFPAY ==
--- NOTE | 2024-06-04 09:29 | A.OFFVIS_ITS ---
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 Presents for 5 month post op visit. Weight today is 154.6 pounds, with a BMI of 29.6. There has been a 75.4 pound weight loss,(initial weight 230 pounds) since starting the program on 11/01/2023 reflecting a 32.7% total body weight loss and a weight loss of 53.9 pounds since surgery (operative weight 208.5 pounds) reflecting a 25.8% TBWL since surgery. No complaints of nausea, emesis, abdominal pain or reflux. Reports infrequent but normal bowel movements every 2- 3 days and uses stool softeners regularly. Taking celebrate MVI She states she is feeling excellent. Her energy level has significantly increased. Her exercise tolerance has significantly increased and she has no physical complaints. She has had some hair loss and is willing to try biotin. She has noted that she is off of a majority of her regular medications that she was taking prior to surgery and she is very happy about this. recommended meal plan includes: 8-10 am celebrate 4 in 1, 1 scoop 11-1 pm celebrate 4 in 1, 1 scoop 2-4 pm celebrate bar 6 pm meal with 4 forks protein and 4 forks vegetables bar 7-9 although not doing drinking 60 oz fluids Exercise routine includes: stationary bike 200 kareem 4 day per week walking 3 mi at [facility] twice daily, 250 kareem each [facility] Medical History (Updated 04/29/24 @ 12:00 by GREY Jarquin) BMI 38.0-38.9,adult Obesity Back pain GERD (gastroesophageal reflux disease) Cholelithiasis DJD (degenerative joint disease) Hypertension Morbid obesity Surgical History History of esophagogastroduodenoscopy (EGD) History of ventral hernia repair History of hysterectomy History of delivery Family History Father Bone cancer Social History (Updated 01/27/24 @ 14:37 by Janette Jensen CMA) Household Members: Family Housing: House Are you a primary child care associate teacher to a significant other at home: No Do you presently have visiting nurse or other home services: No Alcohol intake: current Alcohol intake frequency: does not drink Alcohol type: hard liquor Patient Tobacco Use Status: Current everyday Tobacco user Tobacco use type: Cigarette Cigarette Packs Per Day: 0 Cigarettes Per Day: 8 Years Smoked: 43 service: No Telehealth Telehealth Telehealth Platform: Telephone Location of provider rendering services: practice address Location of patient: address on file Patient Identification confirmed using: Name, : Yes Telehealth method: voice only Patient verbally consented to treatment: Yes Patient verbally consented to billing insurance company: Yes Patient informed of any privacy concerns related to visit: Yes Minutes spent on Phone/Video with Pt.: 15 Assessment & Plan Assessment & Plan (1) S/P laparoscopic sleeve gastrectomy: Code(s): Z98.84 - Bariatric surgery status Category: Medical Plan: We will change meal plans slightly as she is not doing the last bar to include: 8-10 am celebrate 4 in 1, 1 scoop 11-1 pm celebrate 4 in 1, 1 scoop 2-4 pm celebrate bar 6 pm meal with 6 forks protein and 6 forks vegetables She is making excellent progress with her exercise routine. She has increased her walking from 25 minutes to an hour and a half twice daily. She does continue to use her exercise bike 4 times per week in addition. We will continue the meal plan as listed above, we will have her return to the office in approximately 4 weeks for her six-month postoperative visit. She has been encouraged to continue to text weekly and with any questions or concerns.
[2024-06-04 09:30] VITALS: BMI 29.6
== END 2024-06-04 15:10 | disposition home or self-care (01) ==
LOC: HO.HBS 14:48
PROVIDERS: Visit Provider Physician Assistant Surgical
DX: E66.3 Overweight (principal); Z68.29 Body mass index [BMI] 29.0-29.9, adult; Z90.3 Acquired absence of stomach [part of]; Z98.84 Bariatric surgery status
CPT/HCPCS: 98967

== ENCOUNTER → 2024-06-04 14:48 | Outpatient (BNVA) | payer BC, SELFPAY | PROVIDERS: Visit Provider Physician Assistant Surgical | DX: Z98.84 Bariatric surgery status (principal) ==

== ENCOUNTER 2024-08-17 14:40 | Outpatient (AMB) | payer BC, SELFPAY ==
--- NOTE | 2024-08-17 14:42 | MHC.OFFVISWM ---
VS Expanded 08/17/24 14:57 BP 154/87 H Blood Pressure Location Rt brachial Blood Pressure Position Sitting Pulse 61 Pulse Source Pulse Oximeter Temp 97.1 F Temperature Source Temporal Artery Scan Pulse Oximetry 96 Oxygen Delivery Method Room Air Height 5 ft 0.5 in Weight 141 lb 9.6 oz BMI 27.2 Body Fat % 25.2 Body Fat Mass 35.8 Fat Free Mass 105.8 Visceral Fat Rating 0 Body Water % 53.0 Body Water Mass 75.0 Muscle Mass/Score 100.6 Basal Metabolic Rate/Score 1,396 Intake Visit Reasons: OV PO LSG 01/08/24 Allergies Sulfa (Sulfonamide Antibiotics) Allergy (Mild, Verified 08/17/24 14:50) rash HPI Comments Details: This?a?59?yo female who is s/p LSG without hiatal hernia repair on?01/08/2024. Presents for 7 month post op visit. Weight today is 141.6 pounds, with a BMI of 27.2. There has been a 88.4 pound weight loss,(initial weight 230 pounds) since starting the program on 11/01/2023 reflecting a 38.4% total body weight loss and a weight loss of 66.9 pounds since surgery (operative weight 208.5 pounds) reflecting a 32% TBWL since surgery. No complaints of nausea, emesis, abdominal pain or reflux. Reports infrequent but normal bowel movements every 2-3 days and uses stool softeners regularly. Taking celebrate MVI She states she is feeling excellent. Her energy level has significantly increased. Her energy level is amazing. Smoking 5-6 cigarettes per day. She is complaining of a swelling she noticed to the anterior tibial right knee, initiating in April, the size of a nickel, increasing since then now to about the size of a half-dollar. She denies significant pain but is concerned about the swelling. recommended meal plan includes: 8-10 am celebrate 4 in 1, 1 scoop 11-1 pm celebrate 4 in 1, 1 scoop 2-4 pm celebrate bar 6 pm meal with 4 forks protein and 4 forks vegetables drinking 60 oz fluids Exercise routine includes: treadmill 400 kareem speed 3.4 - 4, incline 5-15 weights Any post op complications: none ITALIA: never DM: never HTN: resolved Hyperlipidemia: resolved GERD:?0-5 scale ??0 = no symptoms ??1 = symptoms noticeable but not bothersome 2 =symptoms bothersome but not daily ? 3 = symptoms bothersome and daily 4 = symptoms affect daily activities 5 = symptoms are incapacitating, unable to do daily activities ? How bad is the heartburn: 0 ? Heartburn while lying down: 0 ? Heartburn when standing up: 0 ? Heartburn after meals: 0 ? Does heartburn change your diet: 0 ? Does heartburn wake you up from sleep: 0 ? Do you have difficulty swallowin ? Do you have pain with swallowin ? If you take medicine for your reflux, does this affect your daily life: 0 Satisfaction with present condition - satisfied or not satisfied: satisfied [facility] Medical History BMI 38.0-38.9,adult Obesity Back pain GERD (gastroesophageal reflux disease) Cholelithiasis DJD (degenerative joint disease) Hypertension Morbid obesity Surgical History History of esophagogastroduodenoscopy (EGD) History of ventral hernia repair History of hysterectomy History of delivery Family History Father Bone cancer Social History Household Members: Family Housing: House Are you a primary anesthesiologist and critical care to a significant other at home: No Do you presently have visiting nurse or other home services: No Alcohol intake: current Alcohol intake frequency: does not drink Alcohol type: hard liquor Patient Tobacco Use Status: Current everyday Tobacco user Tobacco use type: Cigarette Cigarette Packs Per Day: 0 Cigarettes Per Day: 5 Years Smoked: 43 service: No Physical Exam Const General: cooperative and no acute distress Orientation/consciousness: patient oriented x3 Resp Effort & Inspection: normal respiratory effort Auscultation: clear to auscultation bilaterally Cardio Rate: regular rate Rhythm: regular rhythm GI Inspection: Yes normal to inspection and Yes incision (well healed) Palpation (GI): Soft to palpation and no masses Neuro General: patient oriented x3 Extrem Other: 2.5 x 2 cm mobile nontender mass somewhat rubbery along the right anterior tibial plateau Assessment & Plan Assessment & Plan (1) S/P laparoscopic sleeve gastrectomy: Code(s): Z98.84 - Bariatric surgery status Category: Surgical Plan: Check six-month postop labs. Continue meal plan as she is doing. Continue exercises she is doing, now more consistently. Refer to Orthopedics regarding the right knee swelling, possible lipoma. Return to clinic 6 weeks. Orders: Orders Complete Blood Count Auto Diff Today E87.6 - Hypokalemia, I10 - Essential (primary) hypertension, K76.0 - Fatty (change of) liver, not elsewhere classified, Z98.84 - Bariatric surgery status C Reactive Protein Today E87.6 - Hypokalemia, I10 - Essential (primary) hypertension, K76.0 - Fatty (change of) liver, not elsewhere classified, Z98.84 - Bariatric surgery status Vitamin A Today E87.6 - Hypokalemia, I10 - Essential (primary) hypertension, K76.0 - Fatty (change of) liver, not elsewhere classified, Z98.84 - Bariatric surgery status Insulin Today E87.6 - Hypokalemia, I10 - Essential (primary) hypertension, K76.0 - Fatty (change of) liver, not elsewhere classified, Z98.84 - Bariatric surgery status Hemoglobin A1c Today E87.6 - Hypokalemia, I10 - Essential (primary) hypertension, K76.0 - Fatty (change of) liver, not elsewhere classified, Z98.84 - Bariatric surgery status Lipid Panel Today E87.6 - Hypokalemia, I10 - Essential (primary) hypertension, K76.0 - Fatty (change of) liver, not elsewhere classified, Z98.84 - Bariatric surgery status IRON PROFILE Today E87.6 - Hypokalemia, I10 - Essential (primary) hypertension, K76.0 - Fatty (change of) liver, not elsewhere classified, Z98.84 - Bariatric surgery status Comprehensive Met. Panel Today E87.6 - Hypokalemia, I10 - Essential (primary) hypertension, K76.0 - Fatty (change of) liver, not elsewhere classified, Z98.84 - Bariatric surgery status Vitamin B12 and Folate Today E87.6 - Hypokalemia, I10 - Essential (primary) hypertension, K76.0 - Fatty (change of) liver, not elsewhere classified, Z98.84 - Bariatric surgery status Zinc Today E87.6 - Hypokalemia, I10 - Essential (primary) hypertension, K76.0 - Fatty (change of) liver, not elsewhere classified, Z98.84 - Bariatric surgery status Vitamin B1 Today E87.6 - Hypokalemia, I10 - Essential (primary) hypertension, K76.0 - Fatty (change of) liver, not elsewhere classified, Z98.84 - Bariatric surgery status TSH reflex Free T4 Today E87.6 - Hypokalemia, I10 - Essential (primary) hypertension, K76.0 - Fatty (change of) liver, not elsewhere classified, Z98.84 - Bariatric surgery status Ferritin Today E87.6 - Hypokalemia, I10 - Essential (primary) hypertension, K76.0 - Fatty (change of) liver, not elsewhere classified, Z98.84 - Bariatric surgery status Vitamin D 25-OH Total Today E87.6 - Hypokalemia, I10 - Essential (primary) hypertension, K76.0 - Fatty (change of) liver, not elsewhere classified, Z98.84 - Bariatric surgery status Referrals Orthopedics Referral M25.461 - Effusion, right knee
[2024-08-17 14:57] VITALS: BP 154/87; PULSE 61; TEMP 36.2; O2SAT 96; BMI 27.2
--- OUTSIDE RECORDS SUMMARY | 2024-08-19 16:13 | XMS_ITS | Data Portability ---
Author Organization GREY Weiner glenda [address] Address [address] [place] [address] Assessment Encounter Date Assessment Date Assessment LastModified by Organization Details LastModified Time 05/22/2024 05/22/2024 Based on clinical presentation, you are being diagnosed with Pneumonia. I am going to treat with an antibiotic. I would recommend a follow up visit with your PCP in 1 week to assess improvement. Take Tylenol for fever. You are going to have to have a repeat chest x-ray in 4 weeks. Non-Pharmacol ogical treatment for coughin. Throat lozenges 2. Hot tea with Honey 4. Avoidance of second hand smoke. I would plan on being seen again if any of the following symptoms develop: 1. Fever> 102.5 2. Shortness of breath 3. Wheezing 4. Worsening Cough. I would go to the ER if you develop: 1. Severe Shortness of breath 2. Chest Pain 3. Wheezing 4. Coughing up Blood ronchaga Not available 05/22/2024 11:59:16 Plan of Treatment Reminders Order Date Submit Date Provider Last Modified By Organization Details Last Modified Time Details Appointments None recorded. Lab None recorded. Referral None recorded. Procedures None recorded. Surgeries None recorded. Imaging XR, chest, 2 view 2023 024 [email or web address] [facility], [address] [place], [address], 12:00:56 Medication Orders Zithromax Z-Robert 250 mg tablet 2023 024 [id number], [address], [place], [id number], 4 11:59:04 benzonatate 200 mg capsule 2023 024 ALYSHA Correa [facility]74872, [address], [place], [id number], 4 11:59:08 cefpodoxime 200 mg tablet 2023 024 [id number], [address], [place], [id number], 4 11:59:02 Patient TargetsNo targets recorded. Patient Instructions Encounter Date Encounter Id Patient Instructions Last Modified By Organization Details Last Modified Time 05/22/2024 [id number] Acute Sinusitis: Care Instructions delmis Not available 05/22/2024 11:59:16 cough: care instructions ronchaga Not available 05/22/2024 11:00:05 Reason for Referral None Reported. Results Created Date Observation Date Name Description Value Unit Range Abnormal Flag Note LastModifiedBy Organization Detail LastModifiedTime 05/22/20 24 05/22/2024 XR, chest , 2 view No observ ation record ed. delmis [facility] [address] [place], [address], 05/23/2024 11:43:18 Result Notes None recorded. Problems Name Problem SNOMED Code Status Onset Date Resolution Date Notes Provider Name and Address Organization Details Recorded Time Fibromyalgia 901123638 Active Tereza quezada, [place] - [facility] 4 10:43:52 Arthritis 2912762 Active Tereza quezada, [place] - [facility] 4 10:43:59 Cough 31558620 Active 2023 GAB CARREON NP [address] [place], [address], [place] - [facility] 4 10:53:24 Persistent cough 227629506 Active 2023 GAB CARREON NP [address] [place], [address], [place] - [facility] 4 10:59:43 Atypical pneumonia 660276268 Active 2023 GAB CARREON NP [address] , [place], [address], [place] - [facility] 4 11:57:40 Acute sinusitis 80902112 Active 2023 GAB CARREON NP [address] [place] [place], [address], [place] - [facility] 4 11:59:02 Problem Notes None recorded. Procedures Surgical History None recorded. Imaging Results Imaging Date Name Status LastModified by Organiz ation Details LastModified Time 05/22/2024 XR, [facility], 2 [facility] [address] [place], [address], 05/23/2024 11:43:18 Procedure Notes None recorded. Medical Equipment None Reported. Allergies Allergen ID Allergen Name Allergen Category Reaction Reaction Severity Criticality Documentation Date Start Date Code Code System Note Provider Name and Address Organization Details Recorded Time 691614 Substance with sulfonami de structure and antibacte rial mechanism of action (substanc e) medicatio n Not available Not available Not available 05/22/2024 10934 [address] [facility], [place] - [facility] 4 10:42:30 Medications Name Sig Start Date Stop Date Status Note LastModified by Organization Details LastModified Time doxycycline hyclate 100 mg capsule 05/22 completed Not Available Not Available Not Available cefpodoxime 200 mg tablet Take 1 tablet every 12 hours by oral route for 7 days. 2023 active Not Available Not Available Not Avai lable benzonatate 200 mg capsule Take 1 capsule 3 times a day by oral route for 7 days. 2023 active Not Available Not Available Not Avai lable hydrocodone 5 mg-acetamin ophen 325 mg tablet TAKE 2 TABLETS BY MOUTH FIVE TIMES DAILY active Not Available Not Available No t Available senna 8.6 mg tablet TAKE 2 TABS ORALLY BEDTIME NEEDED FOR CONSTIPAT ION 05/22 completed Not Available Not Available Not Available meloxicam 15 mg tablet TAKE 1 TABLET BY MOUTH EVERY DAY 05/22 completed Not Available Not Available Not Available prednisone 20 mg tablet 05/22 completed Not Available Not Available Not Available Zithromax Z-Robert 250 mg tablet TAKE 2 TABLETS (500 MG) BY ORAL ROUTE ONCE DAILY FOR 1 DAY THEN 1 TABLET (250 MG) BY ORAL ROUTE ONCE DAILY FOR 4 DAYS 2023 active Not Available Not Available Not Avai lable hydrocodone 10 mg-acetamin ophen 325 mg tablet TAKE 1 TABLET BY MOUTH THREE TIMES DAILY 05/22 completed Not Available Not Available Not Available pantoprazol e 40 mg tablet,luz yed release TAKE 1 TABLET BY MOUTH EVERY DAY 05/22 completed Not Available Not Available Not Available nicotine 21 mg/24 hr daily transdermal patch APPLY 1 PATCH TOPICALLY TO THE SKIN 1 TIME EACH DAY AT THE SAME TIME 05/22 completed Not Available Not Available Not Available docusate sodium 100 mg capsule TAKE 1 CAPSULE BY MOUTH DAILY 05/22 completed Not Available Not Available Not Available gabapentin 100 mg capsule 05/22 completed Not Available Not Available Not Available albuterol sulfate HFA 90 mcg/actuati on aerosol inhaler INHALE 1 PUFF INTO THE LUNGS EVERY 4 HOURS NEEDED 05/22 completed Not Available Not Available Not Available ondansetron 4 mg disintegrat ing tablet TAKE 1 TABLET BY MOUTH EVERY 12 HOURS (TWICE A DAY) NEEDED FOR NAUSEA AND VOMITING 05/22 completed Not Available Not Available Not Available oxycodone 5 mg tablet 05/22 completed Not Available Not Available Not Available valsartan 160 mg tablet TAKE 1 TABLET BY MOUTH EVERY DAY 05/22 completed Not Available Not Available Not Available cyclobenzap rine 5 mg tablet 05/22 completed Not Available Not Available Not Available bupropion HCl XL 150 mg 24 hr tablet, extended release 05/22 completed Not Available Not Available Not Available potassium chloride ER 20 mEq tablet,exte nded release TAKE 1 TABLET BY MOUTH DAILY 05/22 completed Not Available Not Available Not Available OneLAX Bisacodyl 10 mg rectal suppository UNWRAP INSERT 1 SUPPOSITI RY RECTALLY DAILY NEEDED FOR CONSTIPAT ION 05/22 completed Not Available Not Available Not Available Vitals Date Recorded Body height Body mass index (BMI) Body weight Oxygen saturation Oxygen saturation in Arterial blood by Pulse oximetry Heart rate Respiratory rate Body temperature Systolic blood pressure Diastolic blood pressure Provider Name and Address Organization Details Last Updated DateTime 4 154.94 cm 29.3 kg/m2 91045.8 2 g 98 % 98 % 53 /min 18 /min 98 [degF] 151 mm[Hg] 95 mm[Hg] Tereza EDMONDS [facility] 10:41:59 Social History Question Answer Notes LastModified by [email or web address] Details LastModified Time Tobacco Smoking Status Current Every Day Smoker Te[facility]zada [place] - [facility] 05/22/2024 10:44:16 What Is Your Level Of Alcohol Consumption? Occasional Information not available 05/22/2024 Do You Use Any Illicit Or Recreational Drugs? No Information not available 05/22/2024 Do You Or Have You Ever Used Any Other Forms Of Tobacco Or Nicotine? No Information not available 05/22/2024 Sex: Unknown Functional Status None recorded. Mental Status None recorded. Family History Relationship Description Onset Age of this Age Resolved Age Notes LastModified by Organization Details LastModified Time Father No current problems or disability Not available 05/22 10:44:04 Mother No current problems or disability Not available 05/22 10:44:04 Medical History No medical history recorded. Gynecological HistoryNo gynecological history recorded. Obstetrics History GPAL:G 0 P 0 0 0 0 Past Encounters Encounter ID Performer Location Encounter Start Date Encounter Closed Date Diagnosis/Indication Diagnosis SNOMED-CT Code Diagnosis ICD10 Code [id number] [address] [address] 08/16/2020 08:12:56 08/16/2020 10:40:57 [id number] [address] [address] 06/04/2019 10:36:12 06/04/2019 11:04:57 [id number] GAB [place]ON [place] [address] [address] 05/22/2024 10:32:20 05/22/2024 12:00:56 Cough 35168446 R05.9 Persistent cough 5650782 02 R05.3 Atypical pneumonia 57982 6009 J18.9 Acute sinusitis 21885604 J01.90 Health Concerns Section Related Observation LastModified by Organization Detai ls LastModified Time None Recorded Concern Status LastModified by Organization Details LastModified Time None Recorded Advance Directives Directive None Recorded Payers Encounter Date Sequence Insurance Name Policy Number Policy Smith Covered Member ID Smith Member ID Guarantor Name 06/04/2019 1 [place] [id number] 8 Humberto C Disanti [id number] AB Danielle C Disanti 08/16/2020 1 [place] [id number] 8 Humberto C Disanti [id number] AB Danielle C Disanti 05/22/2024 1 [place] [id number] 8 Humberto C Disanti [id number] AB Danielle C Disanti Notes Date Note Type Note Provider Name and Address Organization Details Recorded Time 4 text/html CoughReported bypatient.source of patient informationInformation obtained from patient; Patient arrived at Urgent Care ambulatory Quality:intermittent Severity:moderate Duration:21 days Timing:constant Context:smoker Associated Symptoms:no fever; no chills; no chest pain; no heartburn; no nausea; no vomiting; no wheezing; no post nasal drip pt is a 59 yo female her with complain of sinus pain pressure and drainagepatient reports that she has been having a URI with a cough for three weeks and had a new onset nasal drainage and sinus pressure and pain. Reports intermittent fever and fatigue. Hx of TBU, 2 pack hx currently 1/2 a pack GAB CARREON NP [address] [place], [address], [place] - [facility] 05/22/2024 12:01:12 OBGyn Episode No OBEpisode recorded.
--- OUTSIDE RECORDS SUMMARY | 2024-08-19 16:14 | XMS_ITS | Continuity of Care Document ---
Author Organization GREY Wiener glenda [address] Address [address] [place] [address] Assessment Encounter Date Assessment Date Assessment LastModified [...] view 2023 024 [email or web address] [facility], [address] [place], [address], 12:00:56 Medication Orders Zithromax Z-Robert 250 mg tablet 2023 024 [id number], [address], [place], [id number], 4 11:59:04 benzonatate 200 mg capsule 2023 024 ALYSHA Correa [facility]3621, [address], [place], [id number], 4 11:59:08 cefpodoxime 200 mg tablet 2023 024 [id number], [address], [place], [id number], 4 11:59:02 Patient TargetsNo targets recorded. Patient Instructions Encounter Date Encounter Id Patient Instructions Last Modified By Organization Details Last Modified Time 05/22/2024 [id number] Acute Sinusitis: Care Instructions delmis Not available 05/22/2024 11:59:16 cough: care instructions ronchaga Not available 05/22/2024 11:00:05 Reason for Referral None Reported. Results Created Date Observation Date Name Description Value Unit Range Abnormal Flag Note LastModifiedBy Organization Detail LastModifiedTime 05/22/20 24 05/22/2024 XR, chest , 2 view No observ ation record ed. delmis [facility] [address] [place], [address], 05/23/2024 11:43:18 Result Notes None recorded. Problems Name Problem SNOMED Code Status Onset Date Resolution Date Notes Provider Name and Address Organization Details Recorded Time Fibromyalgia 697581164 Active Tereza quezada, [place] - [facility] 10:43:52 Arthritis 8111564 Active Tereza quezada, [place] - [facility] 10:43:59 Cough 56297536 Active 2023 GAB CARREON NP [address] [place], [address] [facility] [place] - [facility] 10:53:24 Persistent cough 004121154 Active 2023 GAB CARREON NP [address] [place], [address], [place] - [facility] 4 10:59:43 Atypical pneumonia 391792520 Active 2023 GAB CARREON NP [address] [place], [address], [place] - [facility] 4 11:57:40 Acute sinusitis 80862062 Active 2023 GAB CARREON NP [address] [place], [address], [place] - [facility] 4 11:59:02 Problem Notes None recorded. Medical Equipment None Reported. Allergies Allergen ID Allergen Name Allergen Category Reaction Reaction Severity Criticality Documentation Date Start Date Code Code System Note Provider Name and Address Organization Details Recorded Time 789400 Substance with sulfonami de structure and antibacte rial mechanism of action (substanc e) medicatio n Not available Not available Not available 05/22/2024 92285 8003 SNOMED Tereza Michael [facility], [place] - [facility] 4 10:42:30 Medications Name [...] and Address Organization Details Last Updated DateTime 154.94 cm 29.3 kg/m2 38970.8 2 g 98 % 98 % 53 /min 18 /min 98 [degF] 151 mm[Hg] 95 mm[Hg] Tereza Michael [place] - [facility] 4 10:41:59 Social History Question Answer Notes LastModified by Organizat ion Details LastModified Time Tobacco Smoking Status Current Every Day Smoker Tereza Michael GREY quezada [facility] 05/22/2024 10:44:16 What Is Your Level [...] Diagnosis/Indication Diagnosis SNOMED-CT Code Diagnosis ICD10 Code [id number] [place] [address] [address] 05/22/2024 10:32:20 05/22/2024 12:00:56 Cough 43623923 R05.9 Persistent cough 9744543 02 R05.3 Atypical pneumonia 53475 6009 J18.9 Acute sinusitis 24458766 J01.90 Health Concerns Section Related Observation LastModified by Organization Detai ls LastModified Time None Recorded Concern Status LastModified by Organization Details LastModified Time None Recorded Payers Encounter Date Sequence Insurance Name Policy Number Policy Smith Covered Member ID Smith Member ID Guarantor Name 05/22/2024 1 [place] [id number] 8 Humberto Virk [id number] AB Danielle Virk Notes Date Note Type Note Provider Name [...] CARREON NP [address] [place], [address], [place] - [facility] 05/22/2024 12:01:12 OBGyn Episode No OBEpisode recorded.
== END 2024-08-17 15:17 | disposition home or self-care (01) ==
PROVIDERS: Visit Provider Physician Assistant Surgical
DX: E66.3 Overweight (principal); Z68.27 Body mass index [BMI] 27.0-27.9, adult; Z90.3 Acquired absence of stomach [part of]; Z98.84 Bariatric surgery status
CPT/HCPCS: 99213

== ENCOUNTER 2024-09-17 10:57 | Outpatient (AMB) | payer BC, SELFPAY ==
[2024-09-17 11:07] VITALS: BMI 27.1
--- NOTE | 2024-09-17 11:07 | A.OFFVIS_ITS ---
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 Patient reports in April she was on her knees on gravel weeding. States a lump presented the size of a nickel. She had tenderness in the beginning however this has subsided. She has concerns of lump increasing in size. Denies pain. NO previous tx. Allergies Sulfa (Sulfonamide Antibiotics) Allergy (Mild, Verified 09/17/24 11:22) rash Medication List - Last Reconciled 09/17/24 by Kar Aguilar PA-C hydrocodone-acetaminophen 10-325 mg 1 tab PO TID PRN sennosides (senna) 17.2 mg (2 x 8.6 mg) PO BEDTIME PRN HPI HPI STORE LOSS PREVENTION MANAGER- Effusion, right knee/ swelling: Details: 59-year-old female presents to the office today for swelling located along the patellar tendon of her right knee. She states this has been present since April of 2024 after she was weeding and kneeling down. She recently had a gastric sleeve with Dr. Ruelas. She takes ibuprofen in the morning. She feels as though the swelling is traveling more laterally. She denies pain. No limitations in activity. [facility] Medical History (Updated 09/17/24 @ 11:36 by Kar Aguilar PA-C) BMI 38.0-38.9,adult Obesity Back pain GERD (gastroesophageal reflux disease) Cholelithiasis DJD (degenerative joint disease) Hypertension Morbid obesity Surgical History (Updated 09/17/24 @ 11:23 by Maday Lares [facility]) History of bariatric surgery History of esophagogastroduodenoscopy (EGD) History of ventral hernia repair History of hysterectomy History of delivery Family History Father Bone cancer Social History Household Members: Family Housing: House Are you a primary manager of care to a significant other at home: No Do you presently have visiting nurse or other home services: No Alcohol intake: current Alcohol intake frequency: does not drink Alcohol type: hard liquor Patient Tobacco Use Status: Current everyday Tobacco user Tobacco use type: Cigarette Cigarette Packs Per Day: 0 Cigarettes Per Day: 5 Years Smoked: 43 service: No Review of Systems Const All systems reviewed & are unremarkable except as noted in HPI and below Physical Exam Vital Signs: BMI result Body Mass Index 27.1 Const General: cooperative and no acute distress Orientation/consciousness: patient oriented x3 Resp Effort & Inspection: normal respiratory effort and able to speak in complete sentences Cardio Peripheral pulses: Peripheral pulses 2+ throughout Neuro General: patient oriented x3 Extrem Other: Right knee normal to inspection. She does have some swelling over the patellar tendon. No redness. Full range of motion. Calf supple and nontender neurovascularly intact. Results Reviewed Results Reviewed: X-rays of the right knee obtained in the office today reviewed by me are negative for any acute or chronic abnormalities. Well-preserved joint space. Assessment & Plan Assessment & Plan (1) Patellar tendinitis, right knee: Code(s): M76.51 - Patellar tendinitis, right knee Category: Medical Plan: I explained to the patient this is likely patellar tendinitis. She states she has been more active since her gastric sleeve, she has been going to the gym and working out. I feel as though this is further exacerbating her symptoms along the patellar tendon. She can modify activity as needed. She also mentioned she has Voltaren gel at home which I suggested she use topically 3 to 4 times a day over the knee to see if this helps with the swelling. I also gave her a handout on obtaining a Chopat strap to apply over the tibial tubercle/patellar tendon to help with her symptoms. If she develops worsening pain and swelling she will contact our office otherwise follow up as needed. Orders: Orders XR knee RT 3V Today M17.11 - Unilateral primary osteoarthritis, right knee XR knee LT 1V Today M25.562 - Pain in left knee Coding Level of Care Code New Pt Level 3 (67797) Complex EM visit Add On G2211 Diagnoses Patellar tendinitis, right knee M76.51
--- OUTSIDE RECORDS SUMMARY | 2024-09-17 11:40 | XMS_ITS | Data Portability ---
Author Organization GREY Weiner glenda [address] Address [address] [place] [address] Assessment Encounter Date Assessment Date Assessment LastModified [...] view 2023 024 [email or web address] [facility], [address] [facility] [place], [address], 12:00:56 Medication Orders Zithromax Z-Robert 250 mg tablet 2023 024 [id number], [address], [place], [id number], 4 11:59:04 benzonatate 200 mg capsule 2023 024 ALYSHA [facility]rea [id number], [address], [place], [id number], 4 11:59:08 cefpodoxime 200 mg tablet 2023 024 [id number], [address], [place], [id number], 4 11:59:02 Patient TargetsNo targets recorded. Patient Instructions Encounter Date Encounter Id Patient Instructions Last Modified By Organization Details Last Modified Time 05/22/2024 [id number] Acute Sinusitis: Care Instructions delmis Not available 05/22/2024 11:59:16 cough: care instructions ronchaga Not available 05/22/2024 11:00:05 Reason for Referral None Reported. Results Created Date Observation Date Name Description Value Unit Range Abnormal Flag Note LastModifiedBy Organization Detail LastModifiedTime 05/22/20 24 05/22/2024 XR, chest , 2 view No observ ation record ed. delmis [facility] [address] [facility] [place], [address], 05/23/2024 11:43:18 Result Notes None recorded. Problems Name Problem SNOMED Code Status Onset Date Resolution Date Notes Provider Name and Address Organization Details Recorded Time Fibromyalgia 978712291 Active Tereza quezada, [place] - [facility] 4 10:43:52 Arthritis 2321197 Active Tereza quezada, [place] - [facility] 4 10:43:59 Cough 38853605 Active 2023 GAB CARREON NP [address] [place], [address], [place] - [facility] 4 10:53:24 Persistent cough 788266425 Active 2023 GAB CARREON NP [address] [place], [address], [place] - [facility] 4 10:59:43 Atypical pneumonia 970564973 Active 2023 GAB CARREON NP [address] , [place], [address], [place] - [facility] 4 11:57:40 Acute sinusitis 22495842 Active 2023 GAB CARREON NP [address] [place], [address], [place] - [facility] 4 11:59:02 Problem Notes None recorded. Procedures Surgical History None recorded. Imaging Results Imaging Date Name Status LastModified by Organiz ation Details LastModified Time 05/22/2024 XR, chest, 2 [facility] [address] [place], [address], 05/23/2024 11:43:18 Procedure Notes None recorded. Medical Equipment None Reported. Allergies Allergen ID Allergen Name Allergen Category Reaction Reaction Severity Criticality Documentation Date Start Date Code Code System Note Provider Name and Address Organization Details Recorded Time 907312 Substance with sulfonami de structure and antibacte rial mechanism of action (substanc e) medicatio n Not available Not available Not available 05/22/2024 23307 8003 SNOMED Terezasophia Michael [facility], [place] - [facility] 4 10:42:30 [...] Updated DateTime 4 154.94 cm 29.3 kg/m2 65835.8 2 g 98 % 98 % 53 /min 18 /min 98 [degF] 151 mm[Hg] 95 mm[Hg] Tereza EDMONDS [facility] 10:41:59 Social History Question Answer Notes LastModified by IP Ghoster Details LastModified Time Tobacco Smoking Status Current Every Day Smoker Tereza quezada PA - [facility] 05/22/2024 10:44:16 What Is Your [...] Diagnosis/Indication Diagnosis SNOMED-CT Code Diagnosis ICD10 Code Diagnosis Note [id number] [address] [address] 08/16/2020 08:12:56 08/16/2020 10:40:57 [id number] [facility] [address] [address] 06/04/2019 10:36:12 06/04/2019 11:04:57 [id number] GAB CARREON NP [address] [address] 05/22/2024 10:32:20 05/22/2024 12:00:56 Cough 52954164 R05.9 Persistent cough 1352661 02 R05.3 Atypical pneumonia 19598 6009 J18.9 Acute sinusitis 93330271 J01.90 Health Concerns Section Related Observation LastModified by Organization Detai ls LastModified Time None Recorded Concern Status LastModified by Organization Details LastModified Time None Recorded Advance Directives Directive None Recorded Payers Encounter Date Sequence Insurance Name Policy Number Policy Smith Covered Member ID Smith Member ID Guarantor Name 06/04/2019 1 [place] [id number] 8 Humberto C Disanti [id number] AB Danielle C Disanti 08/16/2020 1 [place] [id number] 8 Humberto C Disanti [id number] AB Danielle C Disanti 05/22/2024 1 [place] [id number] 8 Humberto C Disanti [id number] AB Danielle C Disanti Notes Date Note [...] CARREON NP [address] [place], [address], [place] - [facility] 05/22/2024 12:01:12 OBGyn Episode No OBEpisode recorded.
== END 2024-09-17 11:38 | disposition home or self-care (01) ==
PROVIDERS: Visit Provider Physician Assistant
DX: M76.51 Patellar tendinitis, right knee (principal)
CPT/HCPCS: 99203

== ENCOUNTER 2024-09-17 11:11 | Outpatient (REF) | payer BC, SELFPAY ==
--- NOTE | ~2024-09-17 | XR_ITS ---
CLINICAL HISTORY: M17.11 - Unilateral primary osteoarthritis, right knee Right knee two views Comparison: None Findings: No acute fracture or dislocation noted. No significant joint effusion identified. No soft tissue foreign body. Impression: No acute bony abnormality This document has been electronically signed by: Jefe Arreola MD on 09/18/2024 19:20:18
--- NOTE | ~2024-09-17 | XR_ITS ---
CLINICAL HISTORY: M25.562 - Pain in left knee Standing AP knees one view Comparison: None Findings: No acute fracture or dislocation identified. Mild degenerative change with joint space loss. This is seen medial compartments bilaterally. No radiopaque foreign body noted. Impression: No acute bony abnormality This document has been electronically signed by: Jefe Arreola MD on 09/18/2024 19:40:15
== END 2024-09-17 11:12 | disposition home or self-care (01) ==
LOC: HO.HOSX 11:11
PROVIDERS: Visit Provider Physician Assistant
DX: M25.562 Pain in left knee (principal); M17.11 Unilateral primary osteoarthritis, right knee
CPT/HCPCS: 73560; 73562

== ENCOUNTER 2024-10-19 11:26 | Outpatient (AMB) | payer BC, SELFPAY ==
[2024-10-19 09:30] VITALS: BMI 26.1
--- NOTE | 2024-10-19 09:30 | MHC.OFFVISWM ---
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 Presents for 9 month post op visit. Weight today is 136 pounds, with a BMI of 26.1. There has been a 94 pound weight loss,(initial weight 230 pounds) since starting the program on 11/01/2023 reflecting a 40.8% total body weight loss and a weight loss of 72.5 pounds since surgery (operative weight 208.5 pounds) reflecting a 34.7 % TBWL since surgery. No complaints of nausea, emesis, abdominal pain or reflux. Reports infrequent but normal bowel movements every 2-3 days and uses stool softeners regularly. Taking celebrate MVI She states she is feeling excellent. Her energy level has significantly increased. Her energy level is amazing. Smoking 5-6 cigarettes per day. She is complaining of a swelling she noticed to the anterior tibial right knee, initiating in April, the size of a nickel, increasing since then now to about the size of a half-dollar. She denies significant pain but is concerned about the swelling. recommended meal plan includes: 8-10 am celebrate 4 in 1, 1 scoop 11-1 pm celebrate 4 in 1, 1 scoop 2-4 pm celebrate bar 6 pm meal with 4 forks protein and 4 forks vegetables drinking 60-70 oz fluids Exercise routine includes: 4-5 days per week. treadmill 400-500 kareem speed 3.4 - 4, incline 5-15 weights [facility] Medical History (Updated 09/17/24 @ 11:36 by Kar Aguilar PA-C) BMI 38.0-38.9,adult Obesity Back pain GERD (gastroesophageal reflux disease) Cholelithiasis DJD (degenerative joint disease) Hypertension Morbid obesity Surgical History (Updated 09/17/24 @ 11:23 by Maday Lares [facility]) History of bariatric surgery History of esophagogastroduodenoscopy (EGD) History of ventral hernia repair History of hysterectomy History of delivery Family History Father Bone cancer Social History Household Members: Family Housing: House Are you a primary career technical education teacher to a significant other at home: No Do you presently have visiting nurse or other home services: No Alcohol intake: current Alcohol intake frequency: does not drink Alcohol type: hard liquor Patient Tobacco Use Status: Current everyday Tobacco user Tobacco use type: Cigarette Cigarette Packs Per Day: 0 Cigarettes Per Day: 5 Years Smoked: 43 service: No Telehealth Telehealth Telehealth Platform: Telephone Location of provider rendering services: practice address Location of patient: address on file Patient Identification confirmed using: Name, : Yes Telehealth method: voice only Patient verbally consented to treatment: Yes Patient verbally consented to billing insurance company: Yes Patient informed of any privacy concerns related to visit: Yes Minutes spent on Phone/Video with Pt.: 15 Assessment & Plan Assessment & Plan (1) S/P laparoscopic sleeve gastrectomy: Code(s): Z98.84 - Bariatric surgery status Category: Surgical Plan: Change meal plans slightly to accommodate her schedule: 10-12 am celebrate 4 in 1, 2 scoops 2-4 pm celebrate bar 6 pm meal with 6 forks protein and 6 forks vegetables Reminded to get labs done. Overall doing fairly well minus the dietary indiscretions from time to time. Return to clinic as scheduled.
--- OUTSIDE RECORDS SUMMARY | 2024-10-19 12:41 | XMS_ITS | Data Portability ---
Author Organization GREY Wenier glenda [address] Address [address] [place] [address] Assessment Encounter Date Assessment Date Assessment LastModified [...] view 2023 024 [email or web address] [facility], [address] [facility] [place], [address], 12:00:56 Medication Orders Zithromax Z-Robert 250 mg tablet 2023 024 [facility], [address], [place], [id number], 4 11:59:04 benzonatate 200 mg capsule 2023 024 ALYSHA Correa [facility], [address], [place], [phone], 4 11:59:08 cefpodoxime 200 mg tablet 2023 024 [facility]SHA [facility], [address], [place], [id number], 4 11:59:02 Patient TargetsNo targets recorded. Patient Instructions Encounter Date Encounter Id Patient Instructions Last Modified By Organization Details Last Modified Time 05/22/2024 [id number] Acute Sinusitis: Care Instructions delmis Not available 05/22/2024 11:59:16 cough: care instructions ronchaga Not available 05/22/2024 11:00:05 Reason for Referral None Reported. Results Created Date Observation Date Name Description Value Unit Range Abnormal Flag Note LastModifiedBy Organization Detail LastModifiedTime 05/22/20 24 05/22/2024 XR, chest , 2 view No observ ation record ed. delmis [facility] [address] [facility] [place], [address], 05/23/2024 11:43:18 Result Notes None recorded. Problems Name Problem SNOMED Code Status Onset Date Resolution Date Notes Provider Name and Address Organization Details Recorded Time Fibromyalgia 753013321 Active Tereza quezada, PA - [facility] 4 10:43:52 Arthritis 0876727 Active Tereza quezada, [place] - [facility] 4 10:43:59 Cough 90216257 Active 2023 GAB CARREON NP [address] [place], [address], [place] - [facility] 4 10:53:24 Persistent cough 882213755 Active 2023 GAB CARREON NP [address] [place], [address], [place] - [facility] 4 10:59:43 Atypical pneumonia 658124335 Active 2023 GAB CARREON NP [address] , [place], [address], [place] - [facility] 4 11:57:40 Acute sinusitis 37671934 Active 2023 GAB CARREON NP [address] [place] [place], [address], [place] - [facility] 4 11:59:02 Problem Notes None recorded. Procedures Surgical History None recorded. Imaging Results Imaging Date Name Status LastModified by Organiz ation Details LastModified Time 05/22/2024 XR, chest, 2 view completed [facility] [address] [place], [address], 05/23/2024 11:43:18 Procedure Notes None recorded. Medical Equipment None Reported. Allergies Allergen ID Allergen Name Allergen Category Reaction Reaction Severity Criticality Documentation Date Start Date Code Code System Note Provider Name and Address Organization Details Recorded Time 152063 Substance with sulfonami de structure and antibacte rial mechanism of action (substanc e) medicatio n Not available Not available Not available 05/22/2024 07297 8003 SNOMED Terezasophia Michael [facility], [place] - [facility] 4 10:42:30 Medications [...] Updated DateTime 4 154.94 cm 29.3 kg/m2 64608.8 2 g 98 % 98 % 53 /min 18 /min 98 [degF] 151 mm[Hg] 95 mm[Hg] Tereza EDMONDS [facility] 10:41:59 Social History Question Answer Notes LastModified by [facility] Details LastModified Time Tobacco Smoking Status Current [...] SNOMED-CT Code Diagnosis ICD10 Code Diagnosis Note [id number] [address] [address] 08/16/2020 08:12:56 08/16/2020 10:40:57 [id number] [facility] [address] [address] 06/04/2019 10:36:12 06/04/2019 11:04:57 [id number] GAB CARREON NP [address] [address] 05/22/2024 10:32:20 05/22/2024 12:00:56 Cough 93192167 R05.9 Persistent cough 7533478 02 R05.3 Atypical pneumonia 43768 6009 J18.9 Acute sinusitis 77184650 J01.90 Health Concerns Section Related Observation LastModified by Organization Detai ls LastModified Time None Recorded Concern Status LastModified by Organization Details LastModified Time None Recorded Advance Directives Directive None Recorded Payers Encounter Date Sequence Insurance Name Policy Number Policy Smith Covered Member ID Smith Member ID Guarantor Name 06/04/2019 1 [place] [id number] 8 Humberto C Disanti [id number] AB Danielle C Disanti 08/16/2020 1 [place] [id number] 8 Humberto C Disanti [id number] AB Danielle C Disanti 05/22/2024 1 [place] [id number] 8 Humberto C Disanti [id number] AB Danielle C Disanti Notes Date Note [...] CARREON NP [address] [place], [address], [place] - [facility] 05/22/2024 12:01:12 OBGyn Episode No OBEpisode recorded.
--- OUTSIDE RECORDS SUMMARY | 2024-10-19 12:41 | XMS_ITS | Encounter Summary ---
Author Organization [facility] Address [address] [place] [address] Care Team Providers Care Longshore Equipment Operator Name Role Phone Andra Ness Primary Care Provider Unavailable Alla Pizarro Unavailable Unavailable Inactive/Transferred Primary Care Provider Unava ilable Encounter Details Date Type Department Care Team (Late st Contact Info) Description 08/27/2022 Abstract Sarahi [facility] Dental [address] [place] [address] Dental, Provider, DDS Social History Tobacco Use Types Packs/Day Years Used Date Smoking Tobacco: Never Assessed Comments Unknown Sex and Gender Information Value Date Recorded Sex Assigned at Female 10/01/2022 3:54 PM EST Legal Sex Female 8:37 PM EDT Gender Identity Female 10/01/2022 3:54 PM EST Sexual Orientation Choose not to disclose 2022 10:37 AM EST documented as of this encounter Plan of Treatment Not on file documented as of this encounter Visit Diagnoses Not on filedocumented in this encounter Care Teams Longshore Equipment Operator Relationship Specialty Start Date End Date Andra Ness FNP PCP - General Family Medicine 09/24/22 10/12/24 Inactive/Transferred PCP - General 10/13/24 10/13/24 Alla Pizarro Community Health Worker 01/02/23 documented as of this encounter
--- OUTSIDE RECORDS SUMMARY | 2024-10-19 12:41 | XMS_ITS | Encounter Summary ---
Author Organization [employer] Address [address] [place] [address] Street [address] [place] [address] Care Team Providers Care Hi Ranger Operator Name Role Phone Andra Ness Primary Care Provider Unavailable Alla Pizarro Unavailable Unavailable Inactive/Transferred Primary Care Provider Unava ilable Encounter Details Date Type Department Care Team (Latest Contact Info) Description 05/21/2022 Abstract [facility] Dental, Provider, DDS Social History Tobacco Use [...] on filedocumented in this encounter Care Teams Hi Ranger Operator Relationship Specialty Start Date End Date Andra Ness FNP PCP - General Family Medicine 09/24/22 10/12/24 Inactive/Transferred PCP - General 10/13/24 10/13/24 Alla Pizarro Community Health Worker 01/02/23 documented as of this encounter
--- OUTSIDE RECORDS SUMMARY | 2024-10-19 12:41 | XMS_ITS | Encounter Summary ---
Author Organization [employer] [facility] Address [address] [facility] [address] [place] [address] Care Team Providers Care Nutter Up Name Role Phone Andra Ness Primary Care Provider Unavailable Alal Pizarro Unavailable Unavailable Inactive/Transferred Primary Care Provider Unava ilable Reason for Visit * Reason Onset Date Comments Med Refill 09/17/2023 Encounter Details Date Type Department Care Team (Late st Contact Info) Description 09/17/2023 Refill [place] [facility] [address] [place] [address] Andra Ness FNP Chronic osteoarthritis Social History Tobacco Use Types Packs/Day Years Used Date Smoking Tobacco: Every Day Cigarettes Smokeless Tobacco: Never PHQ-2 Answer Date Recorded Patient Health Questionnaire-2 Score 0 10/03/2022 Housing Stability Answer Date Recorded What is your housing situation today? I have deni vazquez 09/10/[address] you li ve. Do you have problems with any of the following? None of the above 09/10/2023 Food Insecurity Answer Date Recorded Within the past 12 months, y ou worried that your food would run out before you got money to buy more: Never True 06/25/2023 Within the past 12 months,th e food you bought just didn't last and you didn't have enough money to get more: Never True Transportation Answer Date Recorded In the past 12 months, has l ack of transportation kept you from medical appts, meetings, work or from getting things needed for daily living? No 06/25/2023 Utilities Answer Date Recorded In the past 12 months, has t he electric, gas, oil or water company threatened to shut off services in your home? No 06/25/2023 Depression Answer Date Recorded Patient Health Questionnaire-2 Score 0 10/03/2022 Comments Unknown Sex and Gender Information Value Date Recorded Sex Assigned at Female 10/01/2022 3:54 PM EST Legal Sex Female 8:37 PM EDT Gender Identity Female 10/01/2022 3:54 PM EST Sexual Orientation Choose not to disclose 2022 10:37 AM EST documented as of this encounter Miscellaneous Notes * Telephone Encounter - Ellen Carrington CMA - 09/18/2023 8:48 AM EST Patient sent Portal message stating that RX for Gabapentin was suppose to be sent in.This is not onmedication list for me to queue. Also needs new RX Vicodin pharmacy will do a partial fill they have Qty 85 for patient. [facility] Last fill Date: 08/16/23 Last OV: 09/16/23 Next OV: 10/21/23 Last UTOX: 09/16/23 CSA Date: 06/03/23 DNF Date: * Telephone Encounter - Ellen Carrington CMA - 09/17/2023 4:50 PM EST Tried to call patient questioning if she needs a new RX. Well try again tomorrow documented in this encounter Plan of Treatment Not on file documented as of this encounter Visit Diagnoses Diagnosis Chronic osteoarthritis Osteoarthrosis, unspecified whether generalized or localized, unspecified site documented in this encounter Care Teams Nutter Up Relationship Specialty Start Date End Date Andra Ness FNP PCP - General Family Medicine 09/24/22 10/12/24 Inactive/Transferred PCP - General 10/13/24 10/13/24 Alla Pizarro Community Health Worker 01/02/23 documented as of this encounter
--- OUTSIDE RECORDS SUMMARY | 2024-10-19 12:41 | XMS_ITS | Encounter Summary ---
Author Organization [employer] Address [address] [place] [address] Street [address] [place] [address] Care Team Providers Care Echo Technologist Name Role Phone Andra Ness Primary Care Provider Unavailable Alla Pizarro Unavailable Unavailable Inactive/Transferred Primary Care Provider Unava ilable Encounter Details Date Type Department Care Team (Latest Contact Info) Description 05/29/2021 Abstract [facility] CONVERSIONS Dental, Provider, DDS Social [...] on filedocumented in this encounter Care Teams Echo Technologist Relationship Specialty Start Date End Date Andra Ness FNP PCP - General Family Medicine 09/24/22 10/12/24 Inactive/Transferred PCP - General 10/13/24 10/13/24 Alla Pizarro Community Health Worker 01/02/23 documented as of this encounter
--- OUTSIDE RECORDS SUMMARY | 2024-10-19 12:41 | XMS_ITS | Clinical Summary ---
Author Organization [employer] Address [address] [place] [address] 7[address] [place] [address] Care Team Providers Care Lube Man Name Role Phone Alla Pizarro Unavailable Unavailable Allergies Active Allergy Reactions Criticality Noted Date Comments Sulfa Antibiotics Rash Low 08/23/2022 Other reaction(s): hives Medications fluticasone (Flonase) 50 MCG/ACT nasal spray Administer 2 sprays into each nostril in the morning. PRN only Active Respiratory Therapy Supplies (Nebulizer/Tubing /Mouthpiece) kitIndications:Dy spnea Use with prescribed medication. 1 kit 3 Active hydroCHLOROthiazi de (HYDRODiuril) 25 MG tabletIndications :Primary hypertension Take 1 tablet (25 mg) by mouth in the morning. 30 tablet 3 Active nicotine (Nicotrol) 10 MG inhalerIndication s:Smoker Inhale 1 puff if needed for smoking cessation. 42 each 4 Active nicotine (Nicoderm CQ) 21 MG/24HR patchIndications: Smoker Place 1 patch on the skin 1 (one) time each day at the same time. 30 patch 4 Active pantoprazole (ProtoNix) 40 MG EC tablet Take 40 mg by mouth Once per day. 4 Active docusate sodium (Colace) 100 MG capsule Take 100 mg by mouth Once per day. 4 Active senna (Senokot) 8.6 MG tablet Take 2 tablets by mouth if needed at bedtime for constipation. 4 Active Active Problems Problem Noted Date Diagnosed Date Low back pain at multiple sites 11/14/2022 Overview (03/09/2024): Chronic - managed with opiate Notable improvement since bariatric surgery. Fatty infiltration of liver 10/11/2022 Overview (06/07/2023): Diffuse hepatic hypoattenuation seen with diffuse fatty infiltration of the liver seen on CT (10/11/22) Last ask phos nml @ 85 (06/03/23); mild elevation in ggt @ 46 (06/03/23) Smoker 09/24/2022 Overview (12/16/2023): Urged to quit. Down to 1/2 a pack Urged to cut completely Sending nicotrol and patch Allergic rhinitis 08/23/2022 Chronic fatigue 08/23/2022 Chronic osteoarthritis 08/23/2022 Fibromyalgia 08/23/2022 Hyperlipidemia 08/23/2022 Hypertension 08/23/2022 Overview (03/09/2024): Previously treated with a ARB - stopped with bariatric surgery 12/2023 Mixed incontinence 08/23/2022 Reactive depression 08/23/2022 Resolved Problems Problem Noted Date Diagnosed Date Resolved Date Class 3 severe obesity due t o excess calories with serious comorbidity and body mass index (BMI) of 45.0 to 49.9 in adult 09/16/2023 Overview (12/16/2023): Will undergo gastric sleeve surgery on 01/01. Through [facility]. Memory changes 08/23/2022 03/09/2024 Encounters Date Type Department Care Team Description 09/18/2024 Orders Only [place] [address] [address] Andra Ness FNP from Last 3 Months Immunizations Name Administration Dates Next Due Influenza Injectable Quadriv alant Preservative Free IIV4 MDCK 08/28/2023 Influenza injectable quadriv alent preservative free 06/14/2021,05/24/2020 Influenza, IIV3, injectable 06/14/2021 Pfizer Covid-19 Vaccine 12+ 02/07/2021, Pneumococcal Conjugate PCV 20 11/16/2022 Rabies - IM Fibroblast Culture 7,06/22/2017,06/18/2017,2016 Tdap 06/11/2017 Zoster, Recombinant 09/17/2023,07/10/2021,2020 Family History Medical History Relation Name Comments Hep C Brother Bone cancer Father Emphysema Father COPD Mother Lupus Mother Osteoporosis Mother Heart disease Neg Hx Relation Name Status Comments Brother Father Mother Social History Tobacco Use Types Packs/Day Years Used Date Smoking Tobacco: Every Day Cigarettes Smokeless Tobacco: Never Tobacco Cessation:Ready to Q uit: Not Asked; Counseling Given: Not Answered Alcohol Use Standard Drinks/Week Comments Not Currently 0 (1 standard drink = 0.6 oz pur e alcohol) PHQ-2 Answer Date Recorded Patient Health Questionnaire-2 [...] Date Recorded Patient Health Questionnaire-2 Score 0 03/09/2024 Comments Unknown Sex and Gender Information Value Date Recorded Sex Assigned at Female 10/01/2022 3:54 PM EST Legal Sex Female 8:37 PM EDT Gender Identity Female 10/01/2022 3:54 PM EST Sexual Orientation Choose not to disclose 2022 10:37 AM EST Last Filed Vital Signs Vital Sign Reading Time Taken Comments Blood Pressure 132/84 03/09/2024 9:52 AM EDT Pulse 81 03/09/2024 9:52 AM EDT Temperature 36.4 ??C (97.6 ??F) 03/09/2024 9:52 AM ED T Respiratory Rate 18 09/16/2023 4:26 PM EST Oxygen Saturation 98% 03/09/2024 9:52 AM EDT Inhaled Oxygen Concentration - - Weight 79.6 kg (175 lb 6.4 oz) 03/09/2024 9:52 A M EDT Height 153.7 cm (5' 0.5 ) 03/09/2024 9:52 AM EDT Body Mass Index 33.69 03/09/2024 9:52 AM EDT Plan of Treatment Health Maintenance Due Date Last Done Comments CT Colonography 1966 FIT DNA/Cologuard 1966 FIT 1966 FOBT 1966 HIV Screening 1966 Sigmoidoscopy 1966 Alcohol/Substance Use Screening 1978 Hepatitis A Vaccines (1 of 2 - Risk 2-dose series) 1985 Hepatitis B Vaccines (1 of 3 - 19+ 3-dose series) 1985 Dental X-Ray: Bitewings 05/30/2022 05/29/20, 12/08/2018, 10/22/2016, Additional history exists Dental Oral Exam 11/19/2022 05/21/2022, , 12/08/2018, Additional history exists Dental Prophylaxis 11/19/2022 05/21/2022, 0 05/29/2021, 12/08/2018, Additional history exists COVID-19 Vaccine ( season) 2024 08/28/2023, 08/08/2021, 02/07/2021, Additional history exists Influenza Vaccine (#1) 2024 , 06/14/2021, 06/14/2021, Additional history exists Dental X-Ray: Full Mouth 05/30/2024 05/29/2021, 09/09 Depression Screening 09/10/2024 09/10/2023, 09/10/19 24 SDOH Screening 09/10/2024 09/10/2023 Tobacco Screening 03/09/2025 03/09/2024 Mammogram 09/18/2026 09/18/2024, 08/10, 08/28/2023, Additional history exists DTaP/Tdap/Td Vaccines (2 - Td or Tdap) 06/11/2027 06/11/2017 Colonoscopy 08/29/2027 08/29/2017, 08/10, 08/29/2017 Colorectal Cancer Screening 08/29/2027 Lipid Panel 03/09/2029 03/09/2024, 01/08, 01/30/2021 RSV Patients and Patients Aged 60 years or older (1 - 1-dose 75+ series) 2041 Cervical Cancer Screening Discontinued Pap Smear Discontinued 03/21/2015 Pneumococcal Vaccine: 50+ Years Completed 11/16/2022, 11/16/2022 Hepatitis C Screening Completed 06/03/2023 Zoster Vaccines Completed 09/17/2023, 11/0 09/2020, 06/14/2021 HIB Vaccines Aged Out No longer eligi ble based on patient's age to complete this topic HPV Vaccines Aged Out No longer eligi ble based on patient's age to complete this topic HPV/Cotest Discontinued IPV Vaccines Aged Out No longer eligi ble based on patient's age to complete this topic Meningococcal Vaccine Aged Out No kendall stefanie eligible based on patient's age to complete this topic RSV under 20 months Aged Out No longe r eligible based on patient's age to complete this topic Rotavirus Vaccines Aged Out No longer eligible based on patient's age to complete this topic Procedures Procedure Name Priority Date/Time Associated Diagnosis Comments BI MAMMOGRAM SCREENING TOMOSYNTHESIS BILATERAL Routine 09/18/2024 9:[address] CHEST LDCT LUNG PROGRAM BASELINE Routine 09/18/2024 9:01 AM EST POST-BARIATRIC SURGERY COMPREHENSIVE PROFILE Routine 03/09/2024 10:34 AM EDT History of bariatric surgery HEPATITIS C AB W/REFLEX TO HCV QUANT NAAT IF POSITIVE Routine 06/03/2023 12:37 PM EDT Fatty infiltration of liver PROPHYLAXIS - ADULT Routine 05/21/2022 1 2:00 AM EDT PERIODIC ORAL EVALUATION - ESTABLISHED PATIENT Routine 05/21/2022 12:00 AM EDT DIAGNOSTIC - DIAGNOSTIC IMAGING - INTRAORAL - COMPREHENSIVE SERIES OF RADIOGRAPHIC IMAGES Routine 05/29/2021 12:00 AM EDT HM COLONOSCOPY Routine 08/29/2017 HM PAP/HPV Routine 03/21/2015 from Last 3 Months or Most Recently Relevant to Health Maintenance Results * BI Mammogram Screening Tomosynthesis Bilateral (09/18/2024 9:16 AM EST) Anatomical Region Laterality Modality Breast Bilateral Mammography 09/18/2024 9:16 AM EST Narrative 09/18/2024 10:40 AM EST PROCEDURE: MM Digital Mammo Screening INDICATION: Screening. No known palpable abnormalities. 100 pound weight loss since prior mammogram. COMPARISON: Prior mammograms dating back to 08/12/2017. TECHNIQUE: Full-field digital CC and MLO 3D tomosynthesis images of both breasts were acquired. Computer-aided detection (CAD) was utilized in the interpretation of this study. DENSITY: There are scattered areas of fibroglandular density. FINDINGS: The breasts have decreased in size compared to prior consistent with history of significant interval weight loss. No suspicious masses, suspicious microcalcifications, or areas of architectural distortion are seen in either breast to suggest malignancy. IMPRESSION: No mammographic evidence of malignancy. RECOMMENDATION: Annual mammographic screening BI-RADS: 1 (Negative) Lay letter mailed to patient WSN: [id number] Ordering Physician: Andra Ness Dictated By: ?Jyoti Styles MD Dictated Date/Time: ?09/18/24 10:37 am Reviewed By: ?Jyoti Styles MD Signed By: ? Jyoti Styles MD Signed Date/Time: ? 09/18/24 10:37 am Transcribed By: ? CSB Otr Owner Operator Truck Driver Date/Time: ? 09/18/24 10:35 am Birads: Procedure Note Shmuel, Image - 09/18/2024 PROCEDURE: MM Digital Mammo Screening INDICATION: Screening. No known palpable abnormalities. 100 pound weightloss since prior mammogram. COMPARISON: Prior mammograms dating back to 08/12/2017. TECHNIQUE: Full-field digital CC and MLO 3D tomosynthesis images of bothbreasts were acquired. Computer-aided detection (CAD) was utilized in theinterpretation of this study. DENSITY: There are scattered areas of fibroglandular density. FINDINGS: The breasts have decreased in size compared to prior consistentwith history of significant interval weight loss. No suspicious masses,suspicious microcalcifications, or areas of architectural distortion are seen ineither breast to suggest malignancy. IMPRESSION: No mammographic evidence of malignancy. RECOMMENDATION: Annual mammographic screening BI-RADS: 1 (Negative) Lay letter mailed to patient WSN: [id number] Ordering Physician: Andra Ness Dictated By: Jyoti Styles MD Dictated Date/Time: 09/18/24 10:37 am Reviewed By: Jyoti Styles MD Signed By: Jyoti Styles MD Signed Date/Time: 09/18/24 10:37 am Transcribed By: CSB Otr Owner Operator Truck Driver Date/Time: 09/18/24 10:35 am Birads: Andra Ness QUICKBOOKS BOOKKEEPER IMG BI PROCEDURES Shweta l Result * CT Chest LDCT Lung Program Baseline (09/18/2024 9:01 AM EST) Anatomical Region Laterality Modality Body, Pelvis, Abdomen Computed T omography 09/18/2024 9:01 AM EST Narrative 09/18/2024 11:[address] Chest LDCT Lung Program Baseline REASON: LDCT LUNG CANCER SCREENING PROGRAM, CURRENT SMOKER, 44 PACK YEAR HX Visit type: Baseline TECHNIQUE: Low-dose helical CT of the chest without IV contrast (Adult Lung Cancer Screening) protocol was performed. Coronal reformats were obtained. Weight-based protocol using automatic tube modulation was used to optimize exposure parameters. CTDIvol Body: 1.25 mGy, ??DLP Body: 45 mGy*cm. COMPARISON: CT chest with contrast 10/10/2022. FINDINGS: LUNG NODULES (measured on thin axial series 5): RIGHT lung: None. LEFT lun.3 cm perifissural left lower lobe nodule, likely representing a fissural lymph node (image 207). Tiny 0.2 cm juxtapleural nodule in the posterior left lower lobe (image 235). OTHER FINDINGS: Cell Tester view findings, lines and tubes: None. Trachea and airways: Patent without evidence of tracheal or endobronchial lesion. Lungs and pleura: Minimal bibasilar atelectasis. Unchanged small linear scarring/atelectasis in the right middle lobe. Otherwise, clear lungs. No effusion or pneumothorax. Mediastinum and didier: No mass or hematoma. No mediastinal or hilar lymphadenopathy. No esophageal abnormality. Partially imaged thyroid is unremarkable. Heart: Heart is normal in size. No pericardial effusion. Mild coronary artery calcification. Aorta: Mild vascular calcification but no aneurysm. Pulmonary arteries: Normal caliber. Chest wall soft tissues: No acute abnormality. Diaphragm: Intact. Upper abdomen: No significant abnormality. Prior gastric surgery. Bones: No acute abnormality. IMPRESSION: 1. Two sub 0.3 cm nodules. No suspicious nodules. ??LungRad Category: 2 Benign Appearance or Behavior. Nodules with a very low likelihood of becoming a clinically active cancer due to size or lack of growth. Continue annual screening with LDCT in 12 months. 2. No significant additional findings requiring further evaluation. Lung-RAD Category Modifier: None. Categorization based on Lung-RADS 2022 criteria. [email or web address] I have personally reviewed the images and I agree with this report. WSN: [id number] Ordering Physician: Andra Ness Dictated By: ?Michael Russo MD Dictated Date/Time: ?09/18/24 11:46 a Reviewed By: ?Jasen Cortez MD Signed By: ? Jasen Cortez MD Signed Date/Time: ? 09/18/24 11:51 am Transcribed By: ? CSB Transcribed Date/Time: ?09/18/24 10:34 am Procedure Note Donotuseinterpreter, Image - 09/18/2024 CT Chest LDCT Lung Program Baseline REASON: LDCT LUNG CANCER SCREENING PROGRAM, CURRENT SMOKER, 44 PACK YEARHX Visit type: Baseline TECHNIQUE: Low-dose helical CT of the chest without IV contrast (AdultLung Cancer Screening) protocol was performed. Coronal reformats wereobtained. Weight-based protocol using automatic tube modulation was used tooptimize exposure parameters. CTDIvol Body: 1.25 mGy, DLP Body: 45 mGy*cm. COMPARISON: CT chest with contrast 10/10/2022. FINDINGS: LUNG NODULES (measured on thin axial series 5): RIGHT lung: None. LEFT lun.3 cm perifissural left lower lobe nodule, likely representing a fissurallymph node (image 207). Tiny 0.2 cm juxtapleural nodule in the posterior left lower lobe (). OTHER FINDINGS: Cell Tester view findings, lines and tubes: None. Trachea and airways: Patent without evidence of tracheal orendobronchial lesion. Lungs and pleura: Minimal bibasilar atelectasis. Unchanged small linear scarring/atelectasis in the right middle lobe. Otherwise, clear lungs.No effusion or pneumothorax. Mediastinum and didier: No mass or hematoma. No mediastinal or hilar lymphadenopathy. No esophageal abnormality. Partially imaged thyroid is unremarkable. Heart: Heart is normal in size. No pericardial effusion. Mild coronaryartery calcification. Aorta: Mild vascular calcification but no aneurysm. Pulmonary arteries: Normal caliber. Chest wall soft tissues: No acute abnormality. Diaphragm: Intact. Upper abdomen: No significant abnormality. Prior gastric surgery. Bones: No acute abnormality. IMPRESSION: 1. Two sub 0.3 cm nodules. No suspicious nodules. LungRad Category: 2 Benign Appearance or Behavior. Nodules with a very low likelihood ofbecoming a clinically active cancer due to size or lack of growth. Continue annual screening with LDCT in 12 months. 2. No significant additional findings requiring further evaluation.Lung-RAD Category Modifier: None. Categorization based on Lung-RADS 2022 criteria. [email or web address] I have personally reviewed the images and I agree with this report. WSN: [id number] Ordering Physician: Andra Ness Dictated By: Michael Russo MD Dictated Date/Time: 09/18/24 11:46 a Reviewed By: Jasen Cortez MD Signed By: Jasen Cortez MD Signed Date/Time: 09/18/24 11:51 am Transcribed By: MARGARITO Transcribed Date/Time: 09/18/24 10:34 am Andra Ness QUICKBOOKS BOOKKEEPER IMG CT PROCEDURES Shweta l Result * (ABNORMAL) Post-Bariatric Surgery Comprehensive Profile (03/09/2024 10:34 AM EDT) Glucose 83 70 - 99 mg/dL [facility] 1 Hemoglobin A1c CANCELED % [facility] 1 Comment: [facility] was unable to collect sufficient specimen to perform the following test(s), and is providing the patient with re-collection instructions. ? Prediabetes: 5.7 - 6.4 ? Diabetes: >6.4 ? Glycemic control for adults with diabetes: <7.0 Result canceled by the ancillary. Urea Nitrogen (BUN) 10 6 - 24 mg/dL [facility] 1 Creatinine, Serum 0.65 0.57 - 1.00 mg/dL [facility] 1 eGFR 102 >59 mL/min/1 .73 [facility] 1 BUN/Creatinine Ratio 15 9 - 23 [facility] 1 Sodium 140 134 - 144 mmol/L [facility] 1 Potassium 4.4 3.5 - 5.2 mmol/L [facility] 1 Chloride 101 96 - 106 mmol/L [facility] 1 Carbon Dioxide 23 20 - 29 mmol/L [facility] 1 Calcium 9.5 8.7 - 10.2 mg/dL [facility] 1 Parathyroid Hormone, Intact 45 15 - 65 pg/mL [facility] 1 PTH Comment [facility] 1 Comment: Interpretation ? Intact PTH ?Calcium ?(pg/mL) ?(mg/dL) Normal ?15 - 65 ? 8.6 - 10.2 Primary Hyperparathyroidism ? >65 ?>10.2 Secondary Hyperparathyroidism ? >65 ?<10.2 Non-Parathyroid Hypercalcemia ? <65 ?>10.2 Hypoparathyroidism ?<15 ?< 8.6 Non-Parathyroid Hypocalcemia ?15 - 65 ?< 8.6 Protein, Total 6.5 6.0 - 8.5 g/dL [facility] 1 Albumin 4.1 3.8 - 4.9 g/dL [facility] 1 Globulin 2.4 1.5 - 4.5 g/dL [facility] 1 Bilirubin, Total 0.4 0.0 - 1.2 mg/dL [facility] 1 Alkaline Phosphatase 76 44 - 121 IU/L [facility] 1 AST 21 0 - 40 IU/L [facility] 1 ALT 15 0 - 32 IU/L [facility] 1 Iron Binding Capacity 255 250 - 450 ug/dL [facility] 1 UIBC 168 131 - 425 ug/dL [facility] 1 Iron, Total 87 27 - 159 ug/dL [facility] % Saturation 34 15 - 55 % [facility] 1 Ferritin 158(H) 15 - 150 ng/mL [facility] 1 Ceruloplasmin 35.2 19.0 - 39.0 mg/dL [facility] 1 Vitamin A (Retinol) 32.5 20.1 - 62.0 ug/dL [facility] 2 Comment: Reference intervals for vitamin A determined from [facility] internal studies. Individuals with vitamin A less than 20 ug/dL are considered vitamin A deficient and those with serum concentrations less than 10 ug/dL are considered severely deficient. This test was developed and its performance characteristics determined by [facility]. It has not been cleared or approved by the Food and Drug Administration. Vitamin B1 (Thiamine), Blood 172.3 66.5 - 200.0 nmol/L [facility] 2 Vitamin B12 1,071 232 - 1,245 pg/mL [facility] 1 Folate, Serum >20.0 >3.0 ng/mL [facility] Comment: A serum folate concentration of less than 3.1 ng/mL is considered to represent clinical deficiency. Vitamin D, 25-OH, Total 58.3 30.0 - 100.0 ng/mL [facility] 1 Comment: Vitamin D deficiency has been defined by the [place] of Medicine and an Endocrine Society practice guideline as a level of serum 25-OH vitamin D less than 20 ng/mL (1,2). The Endocrine Society went on to further define vitamin D insufficiency as a level between 21 and 29 ng/mL (2). 1. IOM ([place] of Medicine). 2010. Dietary reference ?? intakes for calcium and D. [place]: The ?? National Academies Press. 2. Colt MF, [place], Colin LAMB, et al. ?? Evaluation, treatment, and prevention of vitamin D ?? deficiency: an Endocrine Society clinical practice ?? guideline. JCEM. 2010; 96(7):1911-30. Cholesterol, Total 219(H) 100 - 199 mg/dL [facility] 1 Triglycerides 139 0 - 149 mg/dL [facility] 1 HDL Cholesterol 37(L) >39 mg/dL [facility] 1 VLDL Cholesterol Dusty 25 5 - 40 mg/dL [facility] 1 LDL Chol Calc (NIH) 157(H) 0 - 99 mg/dL [facility] 1 TSH 1.180 0.450 - 4.500 uIU/mL [facility] 1 Soluble Transferrin Receptor 24.6 12.2 - 27.3 nmol/L [facility] 2 Copper, Serum or Plasma 128 80 - 158 ug/dL [facility] 2 Comment:Detection Limit = 5 Zinc, Plasma or Serum 81 44 - 115 ug/dL [facility] 2 Comment:Detection Limit = 5 Methylmalonic Acid 91 0 - 378 nmol/L [facility] 2 White Blood Cell Count CANCELED [facility] 1 Comment: Test not performed Result canceled by the ancillary. Red Blood Cell Count CANCELED [facility] 1 Comment: Test not performed Result canceled by the ancillary. Hemoglobin CANCELED [facility] 1 Comment: Test not performed Result canceled by the ancillary. Hematocrit CANCELED [facility] 1 Comment: Test not performed Result canceled by the ancillary. Platelet Count CANCELED [facility] 1 Comment: Test not performed Result canceled by the ancillary. Blood Venous blood specimen / Unknown 03/09/2024 10:34 AM EDT 03/09/2024 Narrative [facility] 1 - 03/16/2024 10:05 AM EDT Test(s) 234336-Squ. B1, Whole Blood; 719200-Hbfihy, Serum or Plasma; 125418-Dpay, Plasma or Serum; 528696-Zumvyczgqmulv Acid, Serum was developed and its performance characteristics determined by [facility]. It has not been cleared or approved by the Food and Drug Administration. Performed at: ??01 - [facility] [address] ??[id number] Metal Painter: Delfina Irene MD, Phone: ??[phone] Performed at: ??02 - [facility] [address] ??[id number] Metal Painter: Kristina Lara MD, Phone: ??[phone] Andra Ness [facility] BLOOD ORDERABLES E dited Result - Final [facility] 1 [facility] * Hepatitis C Antibody w/Reflex HCV Quant PCR (06/03/2023 12:37 PM EDT) Hepatitis C Virus Ab, Serum NEGATIVE (NEG) [facility] Comment: Reference range: Negative This test was performed on the [employer] Analyst immunoassay system. Testing performed or reported by [facility], a Service of [facility], [facility] [place] [address] Brian Velazco MD, Production Worker [facility]# [id number] 06/03/2023 12:3 7 PM EDT 06/03/2023 12:38 PM EDT Andra Ness [employer]KEE[employer] LAB BLOOD ORDERABLES F inal Result [facility] [address] [place] [address] * Colonoscopy (08/29/2017) Colonoscopy normal Historical Provider HEALTH MAINTENANCE Final Result * Pap Smear (03/21/2015) Pap smear negative Historical Provider HEALTH MAINTENANCE Final Result from Last 3 Months or Most Recently Relevant to Health Maintenance Insurance BCBS OUT OF STATE * Guarantor: Danielle Virk Account Type Relation to Patient Date of Phone Billing Address Dental Self Care Teams Lube Man Relationship Specialty Start Date End Date Alla Pizarro Community Health Worker 01/02/23
--- OUTSIDE RECORDS SUMMARY | 2024-10-19 12:41 | XMS_ITS | Encounter Summary ---
Author Organization [employer] Address [address] [place] [address] Street [address] [place] [address] Care Team Providers Care It Systems Analyst Name Role Phone Andra Ness Primary Care Provider Unavailable Alla Pizarro Unavailable Unavailable Inactive/Transferred Primary Care Provider Unava ilable Encounter Details Date Type Department Care Team (Latest Contact Info) Description 12/08/2018 Abstract [facility] CONVERSIONS Dental, Provider, DDS Social [...] on filedocumented in this encounter Care Teams It Systems Analyst Relationship Specialty Start Date End Date Andra Ness FNP PCP - General Family Medicine 09/24/22 10/12/24 Inactive/Transferred PCP - General 10/13/24 10/13/24 Alla Pizarro Community Health Worker 01/02/23 documented as of this encounter
== END 2024-10-19 11:29 | disposition home or self-care (01) ==
LOC: HO.HBS 11:26
PROVIDERS: Visit Provider Physician Assistant Surgical
DX: E66.3 Overweight (principal); Z68.26 Body mass index [BMI] 26.0-26.9, adult; Z90.3 Acquired absence of stomach [part of]; Z98.84 Bariatric surgery status
CPT/HCPCS: 99213

== ENCOUNTER → 2024-10-19 11:26 | Outpatient (BNVA) | payer BC, SELFPAY | PROVIDERS: Visit Provider Physician Assistant Surgical | DX: Z98.84 Bariatric surgery status (principal); K76.0 Fatty (change of) liver, not elsewhere classified; E87.6 Hypokalemia; I10 Essential (primary) hypertension; M25.461 Effusion, right knee ==

== ENCOUNTER 2024-11-13 09:19 | Outpatient (REF) | payer BC, SELFPAY ==
--- NOTE | ~2024-11-13 | US_ITS ---
EXAMINATION: US ABDOMEN COMPLETE WITH LIVER ELASTOGRAPHY HISTORY: K80.20 - Calculus of gallbladder without cholecystitis without obstruction TECHNIQUE: Real-time grayscale ultrasound imaging of the abdomen was performed and images were reviewed. COMPARISON: Comparison is made with the prior examination dated 11/26/2023. FINDINGS: Liver: The right lobe of the liver measures 13.2 cm in size. The left lobe of the liver measures 7.3 cm in size. The liver demonstrates increased echotexture, consistent with steatosis. No focal mass or intrahepatic biliary ductal dilatation is identified. There is normal hepatopedal flow in the portal vein. Ultrasound elastography of the liver was performed with 10 separate measurements of the liver parenchyma with the patient in the supine position. Measurements were obtained approximately 2 cm below Chiki's capsule and perpendicular to the capsule. Images are of satisfactory quality. The median shear wave velocity is 1.21 m/s (previously 1.53 m/s). The interquartile range/median (IQR/median) is 0.02. Gallbladder and biliary tree: Multiple calculi are noted in the gallbladder. There is no wall thickening or pericholecystic fluid. There is no sonographic Cameron sign. The common bile duct is normal in caliber measuring 8 mm. Kidneys: The right kidney measures 10.3 cm in length. The left kidney measures 9.9 cm in length. The kidneys are unremarkable, without evidence of masses, hydronephrosis, or calculi. Pancreas: The pancreatic head, neck, and body are unremarkable. The pancreatic tail is obscured by bowel gas. Spleen: The spleen is normal in size and contour, measuring 9.5 cm in length. Abdominal aorta and inferior vena cava: The visualized portions of the abdominal aorta and inferior vena cava are normal in caliber. There is no free fluid in the abdomen. US/US abdomen comp w elastography IMPRESSION: Hepatic steatosis. Cholelithiasis without evidence of acute cholecystitis. The median shear wave velocity in the liver is 1.21 m/s, corresponding to a median liver stiffness of 4.42 kPa. The IQR/median value is 0.02. This is indicative of a quality data set. Findings are indicative of a normal elastography value with a low likelihood of severe fibrosis or cirrhosis. REFERENCE: Society of Radiologists in Ultrasound Liver Stiffness Thresholds (2020): LIVER STIFFNESS THRESHOLDS: *Shear wave velocity less than 1.3 m/s (Liver Stiffness equal or less than 5 kPa): High probability of being normal. *Shear wave velocity less than 1.7 m/s (Liver Stiffness less than 9 kPa): In the absence of other known clinical signs, rules out compensated advanced chronic liver disease. *Shear wave velocity between 1.7-2.1 m/s (Liver Stiffness 9-13 kPa): Suggestive of compensated advanced chronic liver disease but need further test for confirmation. *Shear wave velocity between 2.1-2.4 m/s (Liver Stiffness 13-17 kPa): Rules in compensated advanced chronic liver disease. *Shear wave velocity greater than 2.4 m/s (Liver Stiffness over 17 kPa): Suggestive of clinically significant portal hypertension. QUALITY OF DATA SET: *IQR/Median value equal or less than 0.15 implies a quality data set. *IQR/Median value over 0.15 implies a poor quality data set. SIGNIFICANT CHANGE FROM PRIOR EXAM: Significant change if liver stiffness measurement is 10% or greater from prior exam. OTHER CONSIDERATIONS: The stage of liver fibrosis may be overestimated in the setting of acute hepatitis, liver inflammation, elevated liver function tests, hepatic vascular congestion, obstructive cholestasis, non-fasting state, and infiltrative diseases such as amyloidosis and lymphoma. In some patients with NAFLD, the liver stiffness thresholds for compensated advanced chronic liver disease may be lower. In causes other than viral hepatitis and NAFLD, liver stiffness thresholds are not well established. Electronically signed by: Robert Cardona MD 11/13/2024 02:25 PM [facility]
--- OUTSIDE RECORDS SUMMARY | 2024-11-13 10:05 | XMS_ITS | Encounter Summary ---
Author Organization [employer] Address [address] [facility] [address] 7t [place] [address] Care Team Providers Care Journeyman Machinist Name Role Phone Andra Ness Primary Care [...] on filedocumented in this encounter Care Teams Journeyman Machinist Relationship Specialty Start Date End Date Andra Ness FNP PCP - General Family Medicine 09/24/22 10/12/24 Inactive/Transferred PCP - General 10/13/24 10/13/24 Alla Pizarro Community Health Worker 01/02/23 documented as of this encounter
--- OUTSIDE RECORDS SUMMARY | 2024-11-13 10:05 | XMS_ITS | Encounter Summary ---
Author Organization [employer] [facility] Address [address] 7[address] [place] [address] Care Team Providers Care Land Agent Name Role Phone Andra Ness Primary Care Provider Unavailable Alla Pizarro Unavailable Unavailable Inactive/Transferred Primary Care Provider Unava ilable Encounter Details Date Type Department Care Team (Late st Contact Info) Description 08/27/2022 Abstract Sarahi [facility] [address] [place] [address] Dental, Provider, DDS Social History Tobacco Use [...] on filedocumented in this encounter Care Teams Land Agent Relationship Specialty Start Date End Date Andra Ness FNP PCP - General Family Medicine 09/24/22 10/12/24 Inactive/Transferred PCP - General 10/13/24 10/13/24 Alla Pizarro Community Health Worker 01/02/23 documented as of this encounter
--- OUTSIDE RECORDS SUMMARY | 2024-11-13 10:05 | XMS_ITS | Encounter Summary ---
Author Organization [employer] [facility] Address [address] [facility] 7t [place] [address] Care Team Providers Care Long Chain Dyeing Machine Operator Name Role Phone Andra Ness Primary Care Provider Unavailable Alla Pizarro Unavailable Unavailable Inactive/Transferred Primary Care Provider Unava ilable Reason for Visit * Reason Onset Date Comments Med Refill 09/17/2023 Encounter Details Date Type Department Care Team (Late st Contact Info) Description 09/17/2023 Refill [place] [facility] [address] [place] [address] Andra Ness FNP Chronic osteoarthritis Social History [...] site documented in this encounter Care Teams Long Chain Dyeing Machine Operator Relationship Specialty Start Date End Date Andra Ness FNP PCP - General Family Medicine 09/24/22 10/12/24 Inactive/Transferred PCP - General 10/13/24 10/13/24 Alla Pizarro Community Health Worker 01/02/23 documented as of this encounter
--- OUTSIDE RECORDS SUMMARY | 2024-11-13 10:05 | XMS_ITS | Encounter Summary ---
Author Organization [employer] Address [address] [place] [address] Care Team Providers Care Computer Support Specialist Instructor Name Role Phone Andra Ness Primary Care [...] on filedocumented in this encounter Care Teams Computer Support Specialist Instructor Relationship Specialty Start Date End Date Andra Ness FNP PCP - General Family Medicine 09/24/22 10/12/24 Inactive/Transferred PCP - General 10/13/24 10/13/24 Alla Pizarro Community Health Worker 01/02/23 documented as of this encounter
--- OUTSIDE RECORDS SUMMARY | 2024-11-13 10:05 | XMS_ITS | Clinical Summary ---
Author Organization [employer] Address [address] [place] [address] 7t [place] [address] Care Team Providers Care Supervisor Rocket Propellant Plant Name Role Phone Alla Pizarro Unavailable Unavailable [...] undergo gastric sleeve surgery on 01/01. Through [facility]. Memory changes 08/23/2022 03/09/2024 Encounters Date Type Department Care Team Description 09/18/2024 Orders Only [place] [address] [address] Andra Ness FNP from Last 3 Months [...] (Negative) Lay letter mailed to patient WSN: [id number] Ordering Physician: Andra Ness Dictated By: ?Jyoti Styles MD Dictated Date/Time: ?09/18/24 10:37 am Reviewed By: ?Jyoti Styles MD Signed By: ? Jyoti Styles MD Signed Date/Time: ? 09/18/24 10:37 am Transcribed By: ? CSB Farm Loan Representative Date/Time: ? 09/18/24 10:35 am Birads: Procedure [...] (Negative) Lay letter mailed to patient WSN: [id number] Ordering Physician: Andra Ness Dictated By: Jyoti Styles MD Dictated Date/Time: 09/18/24 10:37 am Reviewed By: Jyoti Styles MD Signed By: Jyoti Styles MD Signed Date/Time: 09/18/24 10:37 am Transcribed By: CSB Farm Loan Representative Date/Time: 09/18/24 10:35 am Alejandraads: Andra Ness PRESSURIZER IMG BI PROCEDURES Shweta l Result * [...] left lower lobe (image 235). OTHER FINDINGS: Electronic Heat Seal Operator view findings, lines and tubes: None. Trachea [...] None. Categorization based on Lung-RADS 2022 criteria. [email or web address] I have personally reviewed the images and I agree with this report. WSN: [id number] Ordering Physician: Andra Ness Dictated By: ?Michael [...] nodule in the posterior left lower lobe ([id number]). OTHER FINDINGS: Electronic Heat Seal Operator view findings, lines and tubes: None. Trachea [...] None. Categorization based on Lung-RADS 2022 criteria. [email or web address] I have personally reviewed the images and I agree with this report. WSN: [id number] Ordering Physician: Andra Ness Dictated By: Michael Russo MD Dictated Date/Time: 09/18/24 11:46 a Reviewed By: Jasen Cortez MD Signed By: Jasen Cortez MD Signed Date/Time: 09/18/24 11:51 am Transcribed By: MARGARITO Transcribed Date/Time: 09/18/24 10:34 am Andra Ness PRESSURIZER IMG CT PROCEDURES Shweta l Result * [...] D deficiency has been defined by the [place] of Medicine and an Endocrine Society practice guideline as a level of serum 25-OH vitamin D less than 20 ng/mL (1,2). The Endocrine Society went on to further define vitamin D insufficiency as a level between 21 and 29 ng/mL (2). 1. IOM ([place] of Medicine). 2010. Dietary reference ?? intakes [...] 1 - 03/16/2024 10:05 AM EDT Test(s) 586127-Jxy. B1, Whole Blood; 149966-Dhwant, Serum or Plasma; 326833-Tfdv, Plasma or Serum; 558034-Frgnxhkblaabp Acid, Serum was developed and its performance characteristics determined by [facility]. It has not been cleared or approved by the Food and Drug Administration. Performed at: ??01 - [facility] [address] ??[id number] Saw Filer: Delfina Irene MD, Phone: ??[phone] Performed at: ??02 - [facility] [address] ??[id number] Saw Filer: Kristina Lara MD, Phone: ??[phone] Andra Ness [facility] BLOOD ORDERABLES E dited Result - Final [facility] * Hepatitis C Antibody w/Reflex HCV Quant PCR (06/03/2023 12:37 PM EDT) Hepatitis C Virus Ab, Serum NEGATIVE (NEG) [facility] Comment: Reference range: Negative This test was performed on the Sotelo Associate Quality Engineer immunoassay system. Testing performed or reported by [facility], a Service of [facility], [address] [place] [address] Brian Velazco MD, Power Plant Operator [facility]# [id number] 06/03/2023 12:3 7 PM EDT 06/03/2023 12:38 PM EDT Andra Ness PRESSURIZER LAB BLOOD ORDERABLES F inal Result [facility] [address] [place] [address] * Colonoscopy (08/29/2017) Colonoscopy normal Historical Provider HEALTH MAINTENANCE Final Result * Pap Smear (03/21/2015) HM Pap smear negative Historical Provider HEALTH MAINTENANCE Final Result from Last 3 Months or Most Recently Relevant to Health Maintenance Insurance BC OUT OF STATE * Guarantor: Danielle Virk Account Type Relation to Patient Date of Phone Billing Address Dental Self Care Teams Supervisor Rocket Propellant Plant Relationship Specialty Start Date End Date Alla Pizarro Community Health Worker 01/02/23
--- OUTSIDE RECORDS SUMMARY | 2024-11-13 10:05 | XMS_ITS | Encounter Summary ---
Author Organization [employer] Address [address] 7[address] [place] [address] Care Team Providers Care Pad Extractor Tender Name Role Phone Andra Ness Primary [...] on filedocumented in this encounter Care Teams Pad Extractor Tender Relationship Specialty Start Date End Date Andra Ness FNP PCP - General Family Medicine 09/24/22 10/12/24 Inactive/Transferred PCP - General 10/13/24 10/13/24 Alla Pizarro Community Health Worker 01/02/23 documented as of this encounter
--- OUTSIDE RECORDS SUMMARY | 2024-11-13 10:05 | XMS_ITS | Data Portability ---
Author Organization GREY Weiner glenda [id number] Address [address] [place] [address] Assessment Encounter Date Assessment Date Assessment LastModified [...] view 2023 024 [email or web address] [facility], [address] [facility] [place], [address], 12:00:56 Medication Orders Zithromax Z-Robert 250 mg tablet 2023 024 [id number], [address], [place], [phone], 4 11:59:04 benzonatate 200 mg capsule 2023 024 ALYSHA [id number], [address], [place], [phone], 4 11:59:08 cefpodoxime 200 mg tablet 2023 [address] [id number], [address], [place], [id number], 4 11:59:02 Patient TargetsNo targets recorded. Patient Instructions Encounter Date Encounter Id Patient Instructions Last Modified By Organization Details Last Modified Time 05/22/2024 [id number] Acute Sinusitis: Care Instructions delmis Not available 05/22/2024 11:59:16 cough: care instructions ronchaga Not available 05/22/2024 11:00:05 Reason for Referral None Reported. Results Created Date Observation Date Name Description Value Unit Range Abnormal Flag Note LastModifiedBy Organization Detail LastModifiedTime 05/22/20 24 05/22/2024 XR, chest , 2 view No observ ation record ed. delmis [facility] [address] [facility] [place], [address], 05/23/2024 11:43:18 Result Notes None recorded. Problems Name Problem SNOMED Code Status Onset Date Resolution Date Notes Provider Name and Address Organization Details Recorded Time Fibromyalgia 138558481 Active Tereza quezada, [place] - [facility] 4 10:43:52 Arthritis 1407634 Active Tereza quezada, [place] - [facility] 4 10:43:59 Cough 49123776 Active 2023 GAB CARREON NP [address] [place], [address], [place] - [facility] 4 10:53:24 Persistent cough 619695484 Active 2023 GAB CARREON NP [address] [place], [address], [place] - [facility] 4 10:59:43 Atypical pneumonia 981355565 Active 2023 GAB CARREON NP [address] , [place], [address], [place] - [facility] 4 11:57:40 Acute sinusitis 67861348 Active 2023 GAB CARREON NP [address] [place], [address], [place] - [facility] 4 11:59:02 Problem Notes None recorded. Procedures Surgical History None recorded. Imaging Results Imaging Date Name Status LastModified by Organiz ation Details LastModified Time 05/22/2024 XR, chest, 2 [facility] [address] [place], [address], 05/23/2024 11:43:18 Procedure Notes None recorded. Medical Equipment None Reported. Allergies Allergen ID Allergen Name Allergen Category Reaction Reaction Severity Criticality Documentation Date Start Date Code Code System Note Provider Name and Address Organization Details Recorded Time 755574 Substance with sulfonami de structure and antibacte rial mechanism of action (substanc e) medicatio n Not available Not available Not available 05/22/2024 02550 8003 SNOMED Terezasophia Michael [facility], [place] - [facility] 4 10:42:30 [...] Updated DateTime 4 154.94 cm 29.3 kg/m2 74959.8 2 g 98 % 98 % 53 /min 18 /min 98 [degF] 151 mm[Hg] 95 mm[Hg] Tereza EDMONDS [facility] 10:41:59 Social History Question Answer Notes LastModified by [facility] Details LastModified Time Tobacco Smoking Status Current [...] SNOMED-CT Code Diagnosis ICD10 Code Diagnosis Note [id number] [facility] [address] 08/16/2020 08:12:56 08/16/2020 10:40:57 [id number] [facility] [address] [address] 06/04/2019 10:36:12 06/04/2019 11:04:57 [id number] [place] [id number] [facility] [address] 05/22/2024 10:32:20 05/22/2024 12:00:56 Cough 99687242 R05.9 Persistent cough 5882927 02 R05.3 Atypical pneumonia 21149 6009 J18.9 Acute sinusitis 28024962 J01.90 Health Concerns Section Related Observation LastModified by Organization Detai ls LastModified Time None Recorded Concern Status LastModified by Organization Details LastModified Time None Recorded Advance Directives Directive None Recorded Payers Encounter Date Sequence Insurance Name Policy Number Policy Smith Covered Member ID Smith Member ID Guarantor Name 06/04/2019 1 [place] [id number] Humberto C Disanti [id number] AB Danielle C Disanti 08/16/2020 1 [place] [id number] 8 Humberto C Disanti [id number] AB Danielle C Disanti 05/22/2024 1 [place] [id number] 8 Humberto C Disanti [id number] AB Danielle C Disanti Notes Date Note [...] CARREON NP [address] [place], [address], [place] - [facility] 05/22/2024 12:01:12 OBGyn Episode No OBEpisode recorded.
== END 2024-11-13 09:20 | disposition home or self-care (01) ==
LOC: HO.US 09:19
PROVIDERS: PCP Nurse Practitioner Family; Visit Provider Surgery
DX: K80.20 Calculus of gallbladder without cholecystitis without obstruction (principal)
CPT/HCPCS: 76700; 76981

== ENCOUNTER → 2024-11-13 09:21 | Outpatient (BNV) | payer BC, SELFPAY | PROVIDERS: PCP Nurse Practitioner Family; Visit Provider Radiology Diagnostic Radiology | DX: K80.20 Calculus of gallbladder without cholecystitis without obstruction (principal); K76.0 Fatty (change of) liver, not elsewhere classified | CPT/HCPCS: 76700 ==

== ENCOUNTER 2024-11-19 05:53 | Day surgery (SDC) | payer BC, SELFPAY ==
--- OUTSIDE RECORDS SUMMARY | 2024-11-09 16:56 | XMS_ITS | Clinical Summary ---
Author Organization [employer] Address [address] [place] [address] 7t [place] [address] Care Team Providers Care Veneer Gluer Name Role Phone Alla Pizarro Unavailable Unavailable [...] undergo gastric sleeve surgery on 01/01. Through [facility]. Memory changes 08/23/2022 03/09/2024 Encounters Date Type Department Care Team Description 09/18/2024 Orders Only [place] [address] [address] Andra Ness FNP from Last 3 Months [...] ESTABLISHED PATIENT Routine 05/21/2022 12:00 AM EDT INTRAORAL - COMPLETE SERIES OF RADIOGRAPHIC IMAGES Routine 05/29/2021 12:00 AM EDT HM COLONOSCOPY Routine 08/29/2017 PAP/HPV Routine 03/21/2015 from Last 3 Months [...] (Negative) Lay letter mailed to patient WSN: [id number] Ordering Physician: Andra Ness Dictated By: ?Jyoti Styles MD Dictated Date/Time: ?09/18/24 10:37 am Reviewed By: ?Jyoti Styles MD Signed By: ? Jyoti Styles MD Signed Date/Time: ? 09/18/24 10:37 am Transcribed By: ? CSB Director Advanced Date/Time: ? 09/18/24 10:35 am Birads: Procedure Note Donotrogelio, Image - 09/18/2024 PROCEDURE: MM Digital Mammo [...] (Negative) Lay letter mailed to patient WSN: [id number] Ordering Physician: Andra Ness Dictated By: Jyoti Styles MD Dictated Date/Time: 09/18/24 10:37 am Reviewed By: Jyoti Styles MD Signed By: Jyoti Styles MD Signed Date/Time: 09/18/24 10:37 am Transcribed By: CSB Director Advanced Date/Time: 09/18/24 10:35 am Alejandraads: Andra Ness CAKE FROSTER IMG BI PROCEDURES Shweta l Result * [...] left lower lobe (image 235). OTHER FINDINGS: Dialysis Registered Nurse view findings, lines and tubes: None. Trachea [...] None. Categorization based on Lung-RADS 2022 criteria. [email or web address] I have personally reviewed the images and I agree with this report. WSN: [id number] Ordering Physician: Andra Ness Dictated By: ?Michael [...] nodule in the posterior left lower lobe ([id number]). OTHER FINDINGS: Dialysis Registered Nurse view findings, lines and tubes: None. Trachea [...] None. Categorization based on Lung-RADS 2022 criteria. [email or web address] I have personally reviewed the images and I agree with this report. WSN: [id number] Ordering Physician: Andra Ness Dictated By: Michael Russo MD Dictated Date/Time: 09/18/24 11:46 a Reviewed By: Jasen Cortez MD Signed By: Jasen Cortez MD Signed Date/Time: 09/18/24 11:51 am Transcribed By: MARGARITO Transcribed Date/Time: 09/18/24 10:34 am Andra Ness CAKE FROSTER IMG CT PROCEDURES Shweta l Result * [...] D deficiency has been defined by the [place] of Medicine and an Endocrine Society practice guideline as a level of serum 25-OH vitamin D less than 20 ng/mL (1,2). The Endocrine Society went on to further define vitamin D insufficiency as a level between 21 and 29 ng/mL (2). 1. IOM ([place] of Medicine). 2010. Dietary reference ?? intakes [...] 1 - 03/16/2024 10:05 AM EDT Test(s) 796288-Zdw. B1, Whole Blood; 693706-Ovtmjf, Serum or Plasma; 462567-Qntr, Plasma or Serum; 319199-Cubuiabmfipdx Acid, Serum was developed and its performance characteristics determined by [facility]. It has not been cleared or approved by the Food and Drug Administration. Performed at: ??01 - [facility] [address] ??[id number] Firefighter Marine: Delfina Irene MD, Phone: ??[phone] Performed at: ??02 - [facility] [address] ??[id number] Firefighter Marine: Kristina Lara MD, Phone: ??[phone] Andra Ness [facility] LAB BLOOD ORDERABLES E dited Result - Final [facility] 1 [facility] 2 * Hepatitis C Antibody w/Reflex HCV Quant PCR (06/03/2023 12:37 PM EDT) Hepatitis C Virus Ab, Serum NEGATIVE (NEG) [facility] Comment: Reference range: Negative This test was performed on the Sotelo Net Lead Architect immunoassay system. Testing performed or reported by [facility], a Service of [facility], [address] [place] [address] Brian Velazco MD, Steam Pipe Fitter [facility]# [id number] 06/03/2023 12:3 7 PM EDT 06/03/2023 12:38 PM EDT Andra Ness CAKE FROSTER LAB BLOOD ORDERABLES F inal Result [facility] [address] [place] [address] * Colonoscopy (08/29/2017) Colonoscopy normal Historical Provider HEALTH MAINTENANCE Final Result * Pap Smear (03/21/2015) HM Pap smear negative Historical Provider HEALTH MAINTENANCE Final Result from Last 3 Months or Most Recently Relevant to Health Maintenance Insurance BC OUT OF STATE * Guarantor: Danielle Virk Account Type Relation to Patient Date of Phone Billing Address Dental Self Care Teams Veneer Gluer Relationship Specialty Start Date End Date Alla Pizarro Community Health Worker 01/02/23
--- OUTSIDE RECORDS SUMMARY | 2024-11-09 16:56 | XMS_ITS | Encounter Summary ---
Author Organization [employer] [facility] Address [address] [facility] [address] 7t [place] [address] Care Team Providers Care Manager Ob Name Role Phone Andra Ness Primary Care Provider Unavailable Alla Pizarro Unavailable Unavailable Inactive/Transferred Primary Care Provider Unava ilable Reason for Visit * Reason Onset Date Comments Med Refill 09/17/2023 Encounter Details Date Type Department Care Team (Late st Contact Info) Description 09/17/2023 Refill [place] [facility] [address] [place] [address] Andra Ness FNP Chronic osteoarthritis Social History [...] site documented in this encounter Care Teams Manager Ob Relationship Specialty Start Date End Date Andra Ness FNP PCP - General Family Medicine 09/24/22 10/12/24 Inactive/Transferred PCP - General 10/13/24 10/13/24 Alla Pizarro Community Health Worker 01/02/23 documented as of this encounter
--- OUTSIDE RECORDS SUMMARY | 2024-11-09 16:56 | XMS_ITS | Encounter Summary ---
Author Organization [employer] Address [address] [place] [address] Street 7t [place] [address] Care Team Providers Care County Home Demonstrator Name Role Phone Andra Ness Primary Care [...] on filedocumented in this encounter Care Teams County Home Demonstrator Relationship Specialty Start Date End Date Andra Ness FNP PCP - General Family Medicine 09/24/22 10/12/24 Inactive/Transferred PCP - General 10/13/24 10/13/24 Alla Pizarro Community Health Worker 01/02/23 documented as of this encounter
--- OUTSIDE RECORDS SUMMARY | 2024-11-09 16:56 | XMS_ITS | Encounter Summary ---
Author Organization [facility] [employer] [facility] Address [address] 7t [place] [address] Care Team Providers Care Bar Gauger And Lubricator Tender Name Role Phone Andra Ness Primary Care Provider Unavailable Alla Pizarro Unavailable Unavailable Inactive/Transferred Primary Care Provider Unava ilable Encounter Details Date Type Department Care Team (Late st Contact Info) Description 08/27/2022 Abstract [facility] [address] [place] [address] Dental, Provider, DDS Social History Tobacco Use [...] on filedocumented in this encounter Care Teams Bar Gauger And Lubricator Tender Relationship Specialty Start Date End Date Andra Ness FNP PCP - General Family Medicine 09/24/22 10/12/24 Inactive/Transferred PCP - General 10/13/24 10/13/24 Alla Pizarro Community Health Worker 01/02/23 documented as of this encounter
--- OUTSIDE RECORDS SUMMARY | 2024-11-09 16:56 | XMS_ITS | Encounter Summary ---
Author Organization [employer] Address [address] [place] [address] Street 7t [place] [address] Care Team Providers Care Baked And Graphite Inspector Name Role Phone Andra Ness Primary Care [...] on filedocumented in this encounter Care Teams Baked And Graphite Inspector Relationship Specialty Start Date End Date Andra Ness FNP PCP - General Family Medicine 09/24/22 10/12/24 Inactive/Transferred PCP - General 10/13/24 10/13/24 Alla Pizarro Community Health Worker 01/02/23 documented as of this encounter
--- OUTSIDE RECORDS SUMMARY | 2024-11-09 16:56 | XMS_ITS | Encounter Summary ---
Author Organization [employer] Address [address] [place] [address] Street 7t [place] [address] Care Team Providers Care Configuration Management Advisor Name Role Phone Andra Ness Primary Care [...] on filedocumented in this encounter Care Teams Configuration Management Advisor Relationship Specialty Start Date End Date Andra Ness FNP PCP - General Family Medicine 09/24/22 10/12/24 Inactive/Transferred PCP - General 10/13/24 10/13/24 Alla Pizarro Community Health Worker 01/02/23 documented as of this encounter
--- OUTSIDE RECORDS SUMMARY | 2024-11-09 16:56 | XMS_ITS | Data Portability ---
Author Organization [employer] [facility] [address] Address [address] [place] [address] Assessment Encounter Date Assessment Date Assessment LastModified [...] view 2023 024 [email or web address] [facility], [address] [facility] [place], [address], 12:00:56 Medication Orders Zithromax Z-Robert 250 mg tablet 2023 024 [id number], [address] [place], [place], [id number], 4 11:59:04 benzonatate 200 mg capsule 2023 024 ALYSHA [id number], [address] [place], [place], [id number], 4 11:59:08 cefpodoxime 200 mg tablet 2023 024 [id number], [address] [place], [place], [id number], 4 11:59:02 Patient TargetsNo targets recorded. Patient Instructions Encounter Date Encounter Id Patient Instructions Last Modified By Organization Details Last Modified Time 05/22/2024 [id number] Acute Sinusitis: Care Instructions delmis Not available 05/22/2024 11:59:16 cough: care instructions ronchaga Not available 05/22/2024 11:00:05 Reason for Referral None Reported. Results Created Date Observation Date Name Description Value Unit Range Abnormal Flag Note LastModifiedBy Organization Detail LastModifiedTime 05/22/20 24 05/22/2024 XR, chest , 2 view No observ ation record ed. delmis [facility] [address] [facility] [facility] [place], [address], 05/23/2024 11:43:18 Result Notes None recorded. Problems Name Problem SNOMED Code Status Onset Date Resolution Date Notes Provider Name and Address Organization Details Recorded Time Fibromyalgia 799408006 Active Tereza quezada, [place] - [facility] 4 10:43:52 Arthritis 1244645 Active Tereza quezada, [place] - [facility] 4 10:43:59 Cough 22766779 Active 2023 GAB CARREON NP [address] [place], [address], [place] - [facility] 4 10:53:24 Persistent cough 101898749 Active 2023 GAB CARREON NP [address] [place], [address], [place] - [facility] 4 10:59:43 Atypical pneumonia 271884182 Active 2023 GAB CARREON NP [address] , [place], [address], [place] - [facility] 4 11:57:40 Acute sinusitis 24422734 Active 2023 GAB CARREON NP [address] [place] [place], [address], [place] - [facility] 4 11:59:02 Problem Notes None recorded. Procedures Surgical History None recorded. Imaging Results Imaging Date Name Status LastModified by Organiz ation Details LastModified Time 05/22/2024 XR, chest, 2 view [facility] [address] [place], [address], 05/23/2024 11:43:18 Procedure Notes None recorded. Medical Equipment None Reported. Allergies Allergen ID Allergen Name Allergen Category Reaction Reaction Severity Criticality Documentation Date Start Date Code Code System Note Provider Name and Address Organization Details Recorded Time 751231 Substance with sulfonami de structure and antibacte rial mechanism of action (substanc e) medicatio n Not available Not available Not available 05/22/2024 29608 8003 SNOMED Terezasophia Michael [facility], [place] - [facility] 4 10:42:30 Medications [...] Updated DateTime 4 154.94 cm 29.3 kg/m2 88779.8 2 g 98 % 98 % 53 /min 18 /min 98 [degF] 151 mm[Hg] 95 mm[Hg] Tereza EDMONDS [place] [facility] 10:41:59 Social History Question Answer Notes LastModified by [employer] Details LastModified Time Tobacco Smoking Status Current [...] SNOMED-CT Code Diagnosis ICD10 Code Diagnosis Note [id number] [facility] [address] 08/16/2020 08:12:56 08/16/2020 10:40:57 [id number] [facility] [address] [address] 06/04/2019 10:36:12 06/04/2019 11:04:57 [id number] [place] [facility] [address] 05/22/2024 10:32:20 05/22/2024 12:00:56 Cough 54722443 R05.9 Persistent cough 4947696 02 R05.3 Atypical pneumonia 76354 6009 J18.9 Acute sinusitis 67635918 J01.90 Health Concerns Section Related Observation LastModified by Organization Detai ls LastModified Time None Recorded Concern Status LastModified by Organization Details LastModified Time None Recorded Advance Directives Directive None Recorded Payers Encounter Date Sequence Insurance Name Policy Number Policy Smith Covered Member ID Smith Member ID Guarantor Name 06/04/2019 1 [place] [id number] Humberto C Disanti [id number] AB Danielle C Disanti 08/16/2020 1 [place] [id number] Humberto C Disanti [id number] AB Danielle C Disanti 05/22/2024 1 [place] [id number] Humberto C Disanti [id number] AB Danielle C Disanti Notes Date Note [...] CARREON NP [address] [place], [address], [place] - [facility] 05/22/2024 12:01:12 OBGyn Episode No OBEpisode recorded.
[2024-11-13 09:17] LABS: MANUAL DIFF FLAG NO
[2024-11-13 10:04] LABS: Basophils Absolute Auto 0.1 X10*3/uL (0.0-0.2); Basophils Percent Auto 0.6 % (0-2); Eosinophils Absolute Auto 0.3 X10*3/uL (0.0-0.4); Eosinophils Percent Auto 3.8 % (0-4); Hematocrit 42.3 % (37.0-47.0); Hemoglobin 14.4 g/dl (12.0-16.0); Imm Gran Abs Auto 0.02 X10*3/uL (0.00-0.03); Imm Gran Pct Auto 0.2 % (0.0-0.4); Lymphocytes Absolute Auto 2.7 X10*3/uL (1.2-4.9); Lymphocytes Percent Auto 33.3 % (20-40); Mean Corpuscular Hemoglobin 31.7 pg (27.0-33.0); Mean Corpuscular Volume 93.2 fL (80.0-98.0); Mean Platelet Volume 10.4 fL (9.4-12.3); Monocytes Absolute Auto 0.6 X10*3/uL (0.1-1.2); Monocytes Percent Auto 7.1 % (2-11); Neutrophils Absolute Auto 4.5 x10*3/uL (2.0-8.3); Platelet Count 252 X10*3/uL (160-400); Red Blood Count 4.54 X10*6/uL (4.20-5.50); Red Cell Distribution Width 12.4 % (11.0-16.0); White Blood Count 8.2 X10*3/uL (4.8-10.8)
[2024-11-13 10:11] LABS: Estimated Average Glucose 97 mg/dL; Hemoglobin A1C 105.6012 umol/L; Total Hemoglobin (HGBA1C) 3409.4154 umol/L
[2024-11-13 10:13] LABS: INTERNATIONAL NORM RATIO 0.9 (0.9-1.1); Prothrombin Time 10.5 SEC (10.9-12.4)
[2024-11-13 10:16] LABS: Partial Thromboplastin Time 31.2 SEC (26.0-36.8)
[2024-11-13 11:07] LABS: Alanine Aminotransferase 14 U/L (0-31); Albumin Level 3.8 g/dL (3.5-5.0); Alkaline Phosphatase 57 U/L (39-117); Anion Gap 8 (12-20); Aspartate Amino Transferase 22 U/L (5-31); Bilirubin Total 0.5 mg/dL (0.0-1.0); Blood Urea Nitrogen 13 mg/dL (9-16); C Reactive Protein 0.27 mg/dL (< or = 0.50); Calcium 8.8 mg/dL (8.4-10.2); Carbon Dioxide 30 mmol/L (22-29); Chloride 108 mmol/L (96-108); Cholesterol 211 mg/dL (<200); Estimated Glomerular Filt Rate > 60; Glucose Random 83 mg/dL (60-115); HDL Cholesterol 49 mg/dL (>40); Iron 91 mcg/dL (30-160); LDL Cholesterol Calculated 146 mg/dL (<100); Percent Iron Saturation 41 % (15-50); Potassium 3.9 mmol/L (3.3-5.1); Sodium 142 mmol/L (135-145); Total Iron Binding Capacity 224 mcg/dL (228-428); Total Protein 6.7 g/dL (6.5-8.0); Triglycerides 83 mg/dL (<150); Unsaturated Iron Binding 133 ug/dL
[2024-11-13 11:35] LABS: Ferritin 119 ng/mL (10-250); TSH reflex Free T4 2.78 uIU/mL (0.32-4.0); Vitamin D 25-OH Total 37.1 ng/mL (>30)
[2024-11-13 11:46] LABS: Vitamin B12 454 pg/mL (200-900)
[2024-11-13 12:01] LABS: Insulin 3 uU/mL (2-29)
[2024-11-16 22:38] LABS: Zinc 63 mcg/dL (60-130)
[2024-11-17 17:44] LABS: Vitamin A 39 mcg/dL (38-98)
--- NOTE | 2024-11-18 09:02 | HO.ANESPROP2 ---
Documented by User: Janel Hernandez NP 11/18/24 09:04 HPI - Anesthesia Eval Consult details Narrative: 59yo F for Cholecystectomy Laparoscopic s/p gastric sleeve 01/2024 [facility] Active Problems Active Problems: All Active Problems Patellar tendinitis, right knee (Acute) Swelling of right knee (Acute) Obesity (BMI 30-39.9) (Acute) Congenital intra-abdominal adhesions (Acute) Tobacco abuse (Acute) S/P laparoscopic sleeve gastrectomy (Acute) Steatosis, liver (Acute) GERD (gastroesophageal reflux disease) (Acute) Hypokalemia (Acute) Constipation (Acute) Adjustment disorder, unspecified (Acute) Cholelithiasis (Acute) DJD (degenerative joint disease) (Acute) Hypertension (Acute) Morbid obesity (Acute) Past Medical History Medical History BMI 38.0-38.9,adult Obesity Back pain GERD (gastroesophageal reflux disease) Cholelithiasis DJD (degenerative joint disease) Hypertension Morbid obesity Family History Family History Father Bone cancer Surgical History Surgical History History of bariatric surgery History of esophagogastroduodenoscopy (EGD) History of ventral hernia repair History of hysterectomy History of delivery History of Problems with Anesthesia: No Social History Social History Household Members: Family Housing: House Are you a primary aged or disabled care worker to a significant other at home: No Do you presently have visiting nurse or other home services: No Alcohol intake: current Alcohol intake frequency: does not drink Alcohol type: hard liquor Patient Tobacco Use Status: Current everyday Tobacco user Tobacco use type: Cigarette Cigarette Packs Per Day: 0 Cigarettes Per Day: 10 Years Smoked: 43 Use of substances other than those prescribed or required for medical reasons: No Are you DNR?: No Advance Directives: No Advance Directives Information Provided: Yes Recently lost weight without trying: No Nutrition Risks: No Nutritional Risk Patient : No service: No Meds Allergies Allergy/AdvReac Type Severity Reaction Status Date / Time Sulfa (Sulfonamide Allergy Mild rash Verified 09/17/24 11:22 Antibiotics) Home Medications ?Medication ?Instructions ?Recorded ?Confirmed ?Last Taken ?Type hydrocodone 10 mg-acetaminophen 1 tab PO TID PRN Constipation 08/17/24 11/19/24 Unknown History 325 mg tablet Exam Pertinent Lab Results Pertinent Lab Results: Laboratory Tests 11/13/24 11/13/24 08:57 09:15 WBC 8.2 RBC 4.54 Hgb 14.4 Hct 42.3 MCV 93.2 MCH 31.7 MCHC 34.0 RDW 12.4 Plt Count 252 MPV 10.4 Immature Gran % (Auto) 0.2 Neut % (Auto) 55.0 Lymph % (Auto) 33.3 Clay % (Auto) 7.1 Eos % (Auto) 3.8 Baso % (Auto) 0.6 Lymph # (Auto) 2.7 Clay # (Auto) 0.6 Eos # (Auto) 0.3 Baso # (Auto) 0.1 Abs Immat Gran (auto) 0.02 Absolute Neuts (auto) 4.5 Absolute Nucleated RBC 0.000 Nucleated RBC % (auto) 0.0 PT 10.5 L INR 0.9 APTT 31.2 Sodium 142 Potassium 3.9 Chloride 108 Carbon Dioxide 30 H Anion Gap 8 L BUN 13 Creatinine 0.64 Estim Creat Clear Calc TNP Estimated GFR > 60 Random Glucose 83 Estimat Average Glucose 97 Hemoglobin A1c % 5.0 Insulin Level 3 Calcium 8.8 Iron 91 TIBC 224 L % Saturation 41 Unsat Iron Binding 133 Ferritin 119 Total Bilirubin 0.5 AST 22 ALT 14 Alkaline Phosphatase 57 C-Reactive Protein 0.27 Total Protein 6.7 Albumin 3.8 Triglycerides 83 Cholesterol 211 H LDL Cholesterol, Calc 146 H HDL Cholesterol 49 Vitamin A 39 Vitamin B12 454 25-OH Vitamin D Total 37.1 Folate 13.0 TSH 2.78 Zinc 63 Blood Type A Positive Antibody Screen NEGATIVE Narrative Narrative: EKG 2023 Vent. Rate : 084 BPM Atrial Rate : 084 BPM P-R Int : 164 ms QRS Dur : 082 ms QT Int : 402 ms P-R-T Axes : 070 042 075 degrees QTc Int : 475 ms Normal sinus rhythm Normal ECG No previous ECGs available Assessment and Plan Assessment Anesthesia Assessment: Chart Reviewed Final Anesthetic Review History of Problems with Anesthesia: No Documented by User: Elaina Atkinson MD 11/19/24 07:24 [facility] Past Medical History Medical History BMI 38.0-38.9,adult Obesity Back pain GERD (gastroesophageal reflux disease) Cholelithiasis DJD (degenerative joint disease) Hypertension Morbid obesity Family History Family History Father Bone cancer Surgical History Surgical History History of bariatric surgery History of esophagogastroduodenoscopy (EGD) History of ventral hernia repair History of hysterectomy History of delivery Social History Social History Household Members: Family Housing: House Are you a primary aged or disabled care worker to a significant other at home: No Do you presently have visiting nurse or other home services: No Alcohol intake: current Alcohol intake frequency: does not drink Alcohol type: hard liquor Patient Tobacco Use Status: Current everyday Tobacco user Tobacco use type: Cigarette Cigarette Packs Per Day: 0 Cigarettes Per Day: 10 Years Smoked: 43 Use of substances other than those prescribed or required for medical reasons: No Are you DNR?: No Advance Directives: No Advance Directives Information Provided: Yes Recently lost weight without trying: No Nutrition Risks: No Nutritional Risk Patient : No service: No Meds Allergies Allergy/AdvReac Type Severity Reaction Status Date / Time Sulfa (Sulfonamide Allergy Mild rash Verified 09/17/24 11:22 Antibiotics) Home Medications ?Medication ?Instructions ?Recorded ?Confirmed ?Last Taken ?Type hydrocodone 10 mg-acetaminophen 1 tab PO TID PRN Constipation 08/17/24 11/19/24 Unknown History 325 mg tablet Exam Airway Mallampati Class: II TM Dist: >3cm Neck ROM: Full Loose/Missing/Broken Teeth: No Heart: RRR Lungs: CTA Assessment and Plan Assessment Anesthesia Assessment: Anesthesia Plan Discussed Final Anesthetic Review NPO: Yes ASA Class: II Final Preanesthetic Review: Meds/Allgs Chart Reviewed, Consent Obtained/Reviewed and Anes Risks/Benef Reviewed Patient Risk: Low Procedure Risk: Intermediate Anesthetic Plan Anesthetic Plan: GA Disposition: Standard PACU
[2024-11-19] VITALS (8 sets, daily range): BP systolic 104–127; BP diastolic 62–78; PULSE 63–82; RESP 13–18; TEMP 36.1; O2SAT 94–97; BMI 25.7
[2024-11-19] MEDS: Lactated Ringers 1,000 ML 100 ML IVCONT (06:39)
[2024-11-19] MEDS: Aprepitant 32 MG/4.4 ML VIAL IVPUSH (06:47)
--- NOTE | 2024-11-19 07:27 | P.HPSUR_ITS ---
Pre-Procedural Eval Section A - 24 Hr Update-Section A only Date of Service: 11/19/24 The patient is an INPATIENT: No The patient has been examined within 24 hours of the surgical procedure. The History & Physical has been completed within 30 days and I have reviewed it.: Yes Section B - Complete if H&P > 30 days Chief Complaint: Calculus of gallbladder without cholecystitis Relevant Family History (Specify if Yes): No Relevant Social History: None Present Medications: None Medical History: No relevant PMH History of Previous Operations: Relevant previous surgery/procedure and date(s) (laparoscopic sleeve gastrectomy) Allergies: Allergies Allergy/AdvReac Type Severity Reaction Status Date / Time Sulfa (Sulfonamide Allergy Mild rash Verified 09/17/24 11:22 Antibiotics) Review of Systems Sugical H&P ROS: Negative: Constitution, Cardiovascular, Respiratory, Neurological, Psychiatric, Hem-Onc, Allergic/Immunologic, Gastrointestinal, Genitourinary, Musculoskeletal, Integumentary, Endocrine and Eye s/Ears/Nose/Throat Exam Surgical H&P Exam: Normal: HEENT, Normal: Heart, Normal: Lungs, Normal: Extremities, Normal: Abdomen, Normal: Skin and Normal: Neurological Plan Diagnosis/Plan: Unchanged I have reviewed the history and physical and performed a pertinent physical examination on my patient. No changes have occurred unless specified. Time Spent With Patient Time: Total time managing care of this patient today ____ minutes.
--- NOTE | 2024-11-19 07:30 | PM.OP ---
Brief Operative Note Date of Service: 11/19/24 Pre-op diagnosis: Symptomatic cholelithiasis Post-op diagnosis: same (Dense adhesions and inflammation, hepatomegaly) Procedure: PROCEDURE DATE:?11/19/2024 PREOPERATIVE DIAGNOSIS: Symptomatic cholelithiasis, mid epigastric and right upper quadrant abdominal pain POSTOPERATIVE DIAGNOSIS: ?Same as above. PROCEDURE: Laparoscopic cholecystectomy and laparoscopic lysis of adhesions Surgeon:??Morro Ruelas M.D.. Ph.D. Honing Machine Set Up Operator:?Dick Alberto PA-C? Anesthesia: General endotracheal anesthesia Estimated blood loss:? Minimal? OPERATIVE INDICATIONS:? The patient is a 59 year old female known to me who underwent a laparoscopic sleeve gastrectomy.. The patient had remarkable weight loss so far and had a completely uneventful recovery.? The patient was doing very well but has recently been complaining of persistent mid epigastric and right upper quadrant abdominal pain which is mostly postprandial. Ultrasound of the abdomen and pelvis was consistent with cholelithiasis. Based on this information we recommended laparoscopic cholecystectomy, upper endoscopy to evaluate the patient's symptoms.? In addition to that the plan was also to examine the gastric bypass at the same time. Risks and complications of the surgery were discussed with the patient in advance particularly the possibility of conversion to an open surgery, bleeding, infection, obstruction, deep vein thrombosis or pulmonary embolism, bile leak or major bile duct injury that may require surgical intervention. The patient understood the risks and was in agreement with the plan.? PROCEDURE: After informed consent was obtained by the patient, the patient was? transferred to the Operating Room and was placed in the supine position.? The patient was given preoperative antibiotics and after successful induction of general anesthesia, pneumatic compression devices were placed.? The patient was then prepped and draped in the usual sterile manner and abdominal access was? established with the Aaron technique. The abdomen was insufflated with C02 to a pressure of 15 mmHg. A 5 mm Versi-step port was placed, slightly to the right and superior from the umbilicus. The 5 mm camera was introduced.? We inspected the area where the port had been placed and there was no injury.? The patient was then placed initially in a steep reverse Trendelenburg position and three additional ports were placed, specifically a 12 mm Versi-step port just to the right of the midline? below the xiphoid process and two 5 mm Versi-step ports at the right upper quadrant and right flank.? At that point we positioned back the transverse colon and the omentum above the small intestine and then the patient was? placed in a steep reverse Trendelenburg position tilted to the left side. The gallbladder was retracted cephalad and laterally. There was significant hepatomegaly that did not allow access to the gallbladder. An additional 5mm Versi step port was placed to the left upper quadrant and the Pretzel liver retractor was used to retract the left lobe of the liver. This allowed exposure to the triangle of Calot. There were dense adhesions between the duodenum and the gallbladder wall that were taken down very carefully. In addition, the right hepatic artery was engorged and tethered due to inflammation to the gallbladder wall. This required very careful and tedious dissection to mobilize the artery from the gallbladder wall and identify the right plane of dissection.? Once the duodenum and the hepatic artery were adequately mobilized, the peritoneal attachments of the gallbladder? at the triangle of Calot posteriorly and anteriorly were taken down.? The cystic duct and artery were both seen. They were completely dissected free, skeletonized all the way to the infundibulum of the gallbladder. The artery was very short but the junction with the right hepatic artery was clearly identified. In a similar fashion we also cleaned the liver bed just behind the cystic artery to make sure there was no additional structures in this area.? Once we confirmed that both structures were entering into the gallbladder? and there were no other structures in the area, they were both clipped with two clips proximally, one distally and were cut in-between. We then using the electrocautery we slowly took down the gallbladder? from the liver bed. Small areas of bleeding from the liver parenchyma were controlled with the cautery.? After the gallbladder was completely detached from the liver bed, it was placed in an EndoCatch bag and was removed without difficulty from the xiphoid port. We then inspected the clips at the cystic duct and artery and were both in place.? There was no active bleeding from the liver bed. At that point the patient was placed in supine position, we deflated the abdomen and we removed all ports under direct vision and no bleeding was noted from any of the port sites. The fascia of the 12 mm port was closed using a #1 Polysorb suture. 30cc Ropivacaine plain were used to infiltrate the fascial closure as well as all skin incisions. The wounds were irrigated with saline mixed with antibiotic solution and then the skin was closed with 4-0 Monocryl subcuticular sutures antibiotic-coated.? Steri-strips and OpSites were used to cover all incisions. The patient extubated and was transferred in stable condition to the Recovery Room for further care. I was present and performed all steps of the procedure. Mr. Alberto was the machinist first class. There were no residents to assist with this case. Morro Ruelas M.D., Ph.D., F.A.C.S. Surgeon: Kyler Ruelas MD Anesthesia: GETA, local and other (TAP block) Was an Honing Machine Set Up Operator used for this Procedure?: No Honing Machine Set Up Operator: Dick Alberto Estimated blood loss (mL): 10 IV fluids (mL): 1,000 Urine output (mL): 0 (No Coon to assess output) Pathology: other (Gallbladder) Condition: stable Disposition: PACU
[2024-11-19] MEDS: HYDROmorphone HCl 0.5 MG/0.5 ML SYRINGE 0.25 MG IVPUSH (09:41)
[2024-11-22 08:49] LABS: Vitamin B1 19 nmol/L (8-30)
== END 2024-11-19 10:44 | disposition home or self-care (01) ==
PROVIDERS: Physician Assistant Surgical; PCP Nurse Practitioner Family; Visit Provider Surgery
PROC: 0FT44ZZ Resection of Gallbladder, Percutaneous Endoscopic Approach (ICD-10-PCS; CPT 47562; principal; 2024-11-19 07:30)
DX: R10.13 Epigastric pain (principal); K80.10 Calculus of gallbladder with chronic cholecystitis without obstruction; K82.8 Other specified diseases of gallbladder; R10.11 Right upper quadrant pain; Z98.84 Bariatric surgery status; K21.9 Gastro-esophageal reflux disease without esophagitis; R16.0 Hepatomegaly, not elsewhere classified; I10 Essential (primary) hypertension; E87.6 Hypokalemia; M25.461 Effusion, right knee; E66.9 Obesity, unspecified; Z68.26 Body mass index [BMI] 26.0-26.9, adult; Z88.2 Allergy status to sulfonamides; Z79.899 Other long term (current) drug therapy; F17.210 Nicotine dependence, cigarettes, uncomplicated
CPT/HCPCS: 47562; 49329; 36415; 80053; 80061; 82306; 82607; 82728; 82746; 83036; 83525; 83540; 84425; 84443; 84590; 84630; 85025; 85610; 85730; 86140; 86850; 86900; 86901; 88304; C9145; J0131; J0690; J1100; J1171; J1885; J2003; J2371; J2405; J2704; J2795; J3010

== ENCOUNTER → 2024-11-19 05:53 | Outpatient (BNV) | payer BC, SELFPAY | PROVIDERS: PCP Nurse Practitioner Family; Visit Provider Surgery | DX: K80.20 Calculus of gallbladder without cholecystitis without obstruction (principal); R10.13 Epigastric pain | CPT/HCPCS: 47562 ==

== ENCOUNTER 2024-11-26 13:24 | Outpatient (AMB) | payer BC, SELFPAY ==
--- NOTE | 2024-11-26 13:28 | A.OFFVIS_ITS ---
VS Expanded 11/26/24 13:36 BP 125/67 Blood Pressure Location Rt brachial Blood Pressure Position Sitting Pulse 65 Pulse Source Pulse Oximeter Temp 97.9 F Temperature Source Temporal Artery Scan Pulse Oximetry 98 Oxygen Delivery Method Room Air Height 5 ft 0.5 in Weight 135 lb BMI 25.9 Body Fat % 24.0 Body Fat Mass 32.4 Fat Free Mass 102.6 Visceral Fat Rating 6.0 Body Water % 53.8 Body Water Mass 72.6 Muscle Mass/Score 97.2 Basal Metabolic Rate/Score 1,351 Intake Visit Reasons: (OV) s/p Lap Jen 11/19/24 Allergies Sulfa (Sulfonamide Antibiotics) Allergy (Mild, Verified 11/26/24 13:34) rash HPI Comments Details: This?a?59?yo female who is s/p LSG without hiatal hernia repair on?01/08/2024. Presents for 10 month post op visit. Weight today is 135 pounds, with a BMI of 25.9. There has been a 95 pound weight loss,(initial weight 230 pounds) since starting the program on 11/01/2023 reflecting a 40.9% total body weight loss and a weight loss of 73.5 pounds since surgery (operative weight 208.5 pounds) reflecting a 34.8 % TBWL since surgery. No complaints of nausea, emesis, abdominal pain or reflux. Reports infrequent but normal bowel movements every 2- 3 days and uses stool softeners regularly. Taking celebrate MVI Patient began to experience right upper quadrant abdominal pain. Found to have cholelithiasis consistent with symptomatic cholelithiasis. She underwent laparoscopic cholecystectomy on 11/19/2024. Pathology revealed chronic cholecystitis and cholelithiasis. She reports that since the surgery, she did have some right upper quadrant discomfort postoperatively but this is improving. She additionally experienced shoulder pain which has resolved. She continues on her meal plan without any difficulty. recommended meal plan includes: 8-10 am celebrate 4 in 1, 1 scoop 11-1 pm celebrate 4 in 1, 1 scoop 2-4 pm celebrate bar 6 pm meal with 4 forks protein and 4 forks vegetables drinking 60-70 oz fluids Exercise routine includes: 4-5 days per week. treadmill 400-500 kareem speed 3.4 - 4, incline 5-15 weights PFSH Medical History BMI 38.0-38.9,adult Obesity Back pain GERD (gastroesophageal reflux disease) Cholelithiasis DJD (degenerative joint disease) Hypertension Morbid obesity Surgical History (Updated 11/26/24 @ 13:58 by GREY Jarquin) Hx of cholecystectomy History of bariatric surgery History of esophagogastroduodenoscopy (EGD) History of ventral hernia repair History of hysterectomy History of delivery Family History Father Bone cancer Social History Household Members: Family Housing: House Are you a primary family member caretaker to a significant other at home: No Do you presently have visiting nurse or other home services: No Alcohol intake: current Alcohol intake frequency: does not drink Alcohol type: hard liquor Patient Tobacco Use Status: Current everyday Tobacco user Tobacco use type: Cigarette Cigarette Packs Per Day: 0 Cigarettes Per Day: 10 Years Smoked: 43 service: No Physical Exam GI Inspection: Yes incision (Clean, dry, intact.) Assessment & Plan Assessment & Plan (1) S/P laparoscopic cholecystectomy: Code(s): Z90.49 - Acquired absence of other specified parts of digestive tract Category: Surgical Plan: Patient is doing well post cholecystectomy. Anatomy and expected postoperative course was reviewed with the patient. Additionally, pathology was reviewed with the patient. No evidence of neoplasm. Plan for follow-up in the office as scheduled. She was told to avoid heavy lifting and no abdominal work or core work for 6 weeks.
[2024-11-26 13:36] VITALS: BP 125/67; PULSE 65; TEMP 36.6; O2SAT 98; BMI 25.9
--- OUTSIDE RECORDS SUMMARY | 2024-11-26 15:56 | XMS_ITS | Data Portability ---
Author Organization GREY Weiner glenda [id number] Address [address] [place] [address] Assessment Encounter Date Assessment Date Assessment LastModified [...] view 2023 024 [email or web address] [facility], [address] [place], [address], 12:00:56 Medication Orders Zithromax Z-Robert 250 mg tablet 2023 024 [id number], [address], [place], [id number], 4 11:59:04 benzonatate 200 mg capsule 2023 024 ALYSHA [id number], [address], [place], [phone], 4 11:59:08 cefpodoxime 200 mg tablet 2023 024 [id number], [address], [place], [id number], 4 11:59:02 Patient TargetsNo targets recorded. Patient Instructions Encounter Date Encounter Id Patient Instructions Last Modified By Organization Details Last Modified Time 05/22/2024 [id number] Acute Sinusitis: Care Instructions delmis Not available 05/22/2024 11:59:16 cough: care instructions ronchaga Not available 05/22/2024 11:00:05 Reason for Referral None Reported. Results Created Date Observation Date Name Description Value Unit Range Abnormal Flag Note LastModifiedBy Organization Detail LastModifiedTime 05/22/20 24 05/22/2024 XR, chest , 2 view No observ ation record ed. delmis [facility] [address] [facility] [facility] [place], [address], 05/23/2024 11:43:18 Result Notes None recorded. Problems Name Problem SNOMED Code Status Onset Date Resolution Date Notes Provider Name and Address Organization Details Recorded Time Fibromyalgia 764738912 Active Tereza quezada, [place] - [facility] 4 10:43:52 Arthritis 7466072 Active Tereza quezada, [place] - [facility] 4 10:43:59 Cough 39351054 Active 2023 GAB CARREON NP [address] [place], [address], [place] - [facility] 4 10:53:24 Persistent cough 087182093 Active 2023 GAB CARREON NP [address] [place], [address], [place] - [facility] 4 10:59:43 Atypical pneumonia 282296847 Active 2023 GAB CARREON NP [address] , [place], [address], [place] - [facility] 4 11:57:40 Acute sinusitis 12162511 Active 2023 GAB CARREON NP [address] [place], [address], [place] - [facility] 4 11:59:02 Problem Notes None recorded. Procedures Surgical History None recorded. Imaging Results Imaging Date Name Status LastModified by Organiz ation Details LastModified Time 05/22/2024 XR, chest, 2 view [facility] [address] [place], [address], 05/23/2024 11:43:18 Procedure Notes None recorded. Medical Equipment None Reported. Allergies Allergen ID Allergen Name Allergen Category Reaction Reaction Severity Criticality Documentation Date Start Date Code Code System Note Provider Name and Address Organization Details Recorded Time 123811 Substance with sulfonami de structure and antibacte rial mechanism of action (substanc e) medicatio n Not available Not available Not available 05/22/2024 42166 8003 SNOMED Terezasophia Michael [facility], [place] - [facility] 4 10:42:30 Medications [...] Updated DateTime 4 154.94 cm 29.3 kg/m2 47377.8 2 g 98 % 98 % 53 /min 18 /min 98 [degF] 151 mm[Hg] 95 mm[Hg] Tereza EDMONDS [facility] 10:41:59 Social History Question Answer Notes LastModified by [employer] Details LastModified Time Tobacco Smoking Status Current [...] SNOMED-CT Code Diagnosis ICD10 Code Diagnosis Note [id number] [facility] [address] 08/16/2020 08:12:56 08/16/2020 10:40:57 [id number] [facility] [address] [address] 06/04/2019 10:36:12 06/04/2019 11:04:57 [id number] GAB [place] [address] [address] 05/22/2024 10:32:20 05/22/2024 12:00:56 Cough 15972861 R05.9 Persistent cough 1977261 02 R05.3 Atypical pneumonia 66844 6009 J18.9 Acute sinusitis 08032180 J01.90 Health Concerns Section Related Observation LastModified by Organization Detai ls LastModified Time None Recorded Concern Status LastModified by Organization Details LastModified Time None Recorded Advance Directives Directive None Recorded Payers Encounter Date Sequence Insurance Name Policy Number Policy Smith Covered Member ID Smith Member ID Guarantor Name 06/04/2019 1 [place] [id number] Humberto C Disanti [id number] AB Danielle C Disanti 08/16/2020 1 [place] [id number] Humberto C Disanti [id number] AB Danielle C Disanti 05/22/2024 1 [place] [id number] Humberto C Disanti [id number] AB Danielle C Disanti Notes Date Note [...] CARREON NP [address] [place], [address], [place] - [facility] 05/22/2024 12:01:12 OBGyn Episode No OBEpisode recorded.
== END 2024-11-26 13:58 | disposition home or self-care (01) ==
LOC: HO.HBS 13:25
PROVIDERS: PCP Nurse Practitioner Family; Visit Provider Physician Assistant Surgical
DX: Z90.49 Acquired absence of other specified parts of digestive tract (principal)
CPT/HCPCS: 99024

== ENCOUNTER → 2024-11-26 13:24 | Outpatient (BNVA) | payer BC, SELFPAY | PROVIDERS: PCP Nurse Practitioner Family; Visit Provider Physician Assistant Surgical ==

== ENCOUNTER 2025-01-19 13:30 | Outpatient (AMB) | payer BC, SELFPAY ==
[2025-01-19 12:51] VITALS: BMI 26.3
--- NOTE | 2025-01-19 12:51 | A.OFFVIS_ITS ---
VS Expanded 01/19/25 12:51 Height 5 ft 0.5 in Weight 137 lb 1 oz BMI 26.3 Body Fat % 21.4 Fat Free Mass 107.7 Visceral Fat Rating 8 Body Water % 53.9 Muscle Mass/Score 101.2 Basal Metabolic Rate/Score 1,394 Intake Visit Reasons: TV PO LSG 01/08/24 Control Equipment Electrician Required: No Allergies Sulfa (Sulfonamide Antibiotics) Allergy (Mild, Verified 11/26/24 13:34) rash Medication List - Last Reconciled 01/19/25 by GREY Jarquin hydrocodone-acetaminophen 10-325 mg 1 tab PO TID PRN sennosides (senna) 17.2 mg (2 x 8.6 mg) PO BEDTIME PRN HPI Comments Details: This?a?59?yo female who is s/p LSG without hiatal hernia repair on?01/08/2024. Pr esents for 1 year post op visit. Weight today is 137.1 pounds, with a BMI of 26.3. There has been a 92.9 pound weight loss,(initial weight 230 pounds) since starting the program on 11/01/2023 reflecting a 40.3% total body weight loss and a weight loss of 71.4 pounds since surgery (operative weight 208.5 pounds) reflecting a 34.2 % TBWL since surgery. No complaints of nausea, emesis, abdominal pain or reflux. Reports infrequent but normal bowel movements every 2- 3 days and uses stool softeners regularly. Taking celebrate MVI. Patient began to experience right upper quadrant abdominal pain. Found to have cholelithiasis consistent with symptomatic cholelithiasis. She underwent laparoscopic cholecystectomy on 11/19/2024. Pathology revealed chronic cholecystitis and cholelithiasis. She reports that since the surgery, she did have some right upper quadrant discomfort postoperatively but this is improving. She additionally experienced shoulder pain which has resolved. She continues on her meal plan without any difficulty. She is not following the meal plan: Doing 2 cups of coffee benitez bar another bar or shake w 1 scoop HB egg or 4 forks chicken and 4 forks salad recommended meal plan includes: 8-10 am celebrate 4 in 1, 1 scoop 11-1 pm celebrate 4 in 1, 1 scoop 2-4 pm celebrate bar 6 pm meal with 4 forks protein and 4 forks vegetables drinking 60-70 oz fluids Exercise routine includes: 4-5 miles 4-5 days peer week Any post op complications: none ITALIA: never DM: never HTN: resolved Hyperlipidemia: resolved GERD:?0-5 scale ??0 = no symptoms ??1 = symptoms noticeable but not bothersome 2 =symptoms bothersome but not daily ? 3 = symptoms bothersome and daily 4 = symptoms affect daily activities 5 = symptoms are incapacitating, unable to do daily activities ? How bad is the heartburn: 0 ? Heartburn while lying down: 0 ? Heartburn when standing up: 0 ? Heartburn after meals: 0 ? Does heartburn change your diet: 0 ? Does heartburn wake you up from sleep: 0 ? Do you have difficulty swallowin ? Do you have pain with swallowin ? If you take medicine for your reflux, does this affect your daily life: 0 Satisfaction with present condition - satisfied or not satisfied: satisfieed [facility] Medical History BMI 38.0-38.9,adult Obesity Back pain GERD (gastroesophageal reflux disease) Cholelithiasis DJD (degenerative joint disease) Hypertension Morbid obesity Surgical History (Updated 11/26/24 @ 13:58 by GREY Jarquin) Hx of cholecystectomy History of bariatric surgery History of esophagogastroduodenoscopy (EGD) History of ventral hernia repair History of hysterectomy History of delivery Family History Father Bone cancer Social History Household Members: Family Housing: House Are you a primary director of managed care to a significant other at home: No Do you presently have visiting nurse or other home services: No Alcohol intake: current Alcohol intake frequency: does not drink Alcohol type: hard liquor Patient Tobacco Use Status: Current everyday Tobacco user Tobacco use type: Cigarette Cigarette Packs Per Day: 0 Cigarettes Per Day: 10 Years Smoked: 43 service: No Telehealth Telehealth Telehealth Platform: Telephone Location of provider rendering services: practice address Location of patient: other Patient Identification confirmed using: Name, : Yes Telehealth method: voice only Patient verbally consented to treatment: Yes Patient verbally consented to billing insurance company: Yes Patient informed of any privacy concerns related to visit: Yes Minutes spent on Phone/Video with Pt.: 15 Assessment & Plan Assessment & Plan (1) S/P laparoscopic sleeve gastrectomy: Code(s): Z98.84 - Bariatric surgery status Category: Surgical Plan: Patient advised to follow the meal plans or text if any questions or concerns so that we can make recommendations for her. Celebrate 4 in 1 shake, 2 scoops Celebrate or Benitez protein bar Meal with 6 forks of protein and for forks of vegetables Increase fluid intake Check 1 year postop follow-up labs Return to clinic 3 months Encouraged to text weekly with weights and with any questions or concerns. Orders: Orders Insulin Today E87.6 - Hypokalemia, I10 - Essential (primary) hypertension, Z90.49 - Acquired absence of other specified parts of digestive tract, Z98.84 - Bariatric surgery status Hemoglobin A1c Today E87.6 - Hypokalemia, I10 - Essential (primary) hypertension, Z90.49 - Acquired absence of other specified parts of digestive tract, Z98.84 - Bariatric surgery status Complete Blood Count Auto Diff Today E87.6 - Hypokalemia, I10 - Essential (primary) hypertension, Z90.49 - Acquired absence of other specified parts of digestive tract, Z98.84 - Bariatric surgery status IRON PROFILE Today E87.6 - Hypokalemia, I10 - Essential (primary) hypertension, Z90.49 - Acquired absence of other specified parts of digestive tract, Z98.84 - Bariatric surgery status Comprehensive Met. Panel Today E87.6 - Hypokalemia, I10 - Essential (primary) hypertension, Z90.49 - Acquired absence of other specified parts of digestive tract, Z98.84 - Bariatric surgery status C Reactive Protein Today E87.6 - Hypokalemia, I10 - Essential (primary) hypertension, Z90.49 - Acquired absence of other specified parts of digestive tract, Z98.84 - Bariatric surgery status Ferritin Today E87.6 - Hypokalemia, I10 - Essential (primary) hypertension, Z90.49 - Acquired absence of other specified parts of digestive tract, Z98.84 - Bariatric surgery status Vitamin D 25-OH Total Today E87.6 - Hypokalemia, I10 - Essential (primary) hypertension, Z90.49 - Acquired absence of other specified parts of digestive tract, Z98.84 - Bariatric surgery status Lipid Panel Today E87.6 - Hypokalemia, I10 - Essential (primary) hypertension, Z90.49 - Acquired absence of other specified parts of digestive tract, Z98.84 - Bariatric surgery status Vitamin B12 and Folate Today E87.6 - Hypokalemia, I10 - Essential (primary) hypertension, Z90.49 - Acquired absence of other specified parts of digestive tract, Z98.84 - Bariatric surgery status Zinc Today E87.6 - Hypokalemia, I10 - Essential (primary) hypertension, Z90.49 - Acquired absence of other specified parts of digestive tract, Z98.84 - Bariatric surgery status Vitamin B1 Today E87.6 - Hypokalemia, I10 - Essential (primary) hypertension, Z90.49 - Acquired absence of other specified parts of digestive tract, Z98.84 - Bariatric surgery status Vitamin A Today E87.6 - Hypokalemia, I10 - Essential (primary) hypertension, Z90.49 - Acquired absence of other specified parts of digestive tract, Z98.84 - Bariatric surgery status TSH reflex Free T4 Today E87.6 - Hypokalemia, I10 - Essential (primary) hypertension, Z90.49 - Acquired absence of other specified parts of digestive tract, Z98.84 - Bariatric surgery status
--- OUTSIDE RECORDS SUMMARY | 2025-01-19 14:42 | XMS_ITS | Encounter Summary ---
Author Organization [employer] Address [address] [facility] [address] [address] [place] [address] Care Team Providers Care Tank Inspector Name Role Phone Andra Ness Primary Care Provider Unavailable Alla Pizarro Unavailable Unavailable Inactive/Transferred Primary Care Provider Unava ilable Reason for Visit * Reason Onset Date Comments Med Refill 09/17/2023 Encounter Details Date Type Department Care Team (Late st Contact Info) Description 09/17/2023 Refill [facility] [address] [place] [address] Andra Ness FNP Chronic osteoarthritis Social History Tobacco Use Types Packs/Day Years Used Date Smoking Tobacco: Every Day Cigarettes Smokeless Tobacco: Never PHQ-2 Answer Date Recorded Patient Health Questionnaire-2 Score 0 10/03/2022 Housing Stability Answer Date Recorded What is your housing situation today? I have deni vazqeuz 09/10/[address] you li [...] site documented in this encounter Care Teams Tank Inspector Relationship Specialty Start Date End Date Andra Ness FNP PCP - General Family Medicine 09/24/22 10/12/24 Inactive/Transferred PCP - General 10/13/24 10/13/24 Alla Pizarro Community Health Worker 01/02/23 documented as of this encounter
--- OUTSIDE RECORDS SUMMARY | 2025-01-19 14:43 | XMS_ITS | Encounter Summary ---
Author Organization [email or web address] Address [address] [place] [address] Care Team Providers Care Transport Assistant Name Role Phone Andra Ness Primary Care Provider Unavailable Alla Pizarro Unavailable Unavailable Inactive/Transferred Primary Care Provider Unava ilable Encounter Details Date Type Department Care Team (Late st Contact Info) Description 08/27/2022 Abstract [facility] [address] [place] [address] Dental, Provider, DDS Social History Tobacco Use [...] on filedocumented in this encounter Care Teams Transport Assistant Relationship Specialty Start Date End Date Andra Ness FNP PCP - General Family Medicine 09/24/22 10/12/24 Inactive/Transferred PCP - General 10/13/24 10/13/24 Alla Pizarro Community Health Worker 01/02/23 documented as of this encounter
--- OUTSIDE RECORDS SUMMARY | 2025-01-19 14:43 | XMS_ITS | Encounter Summary ---
Author Organization [email or web address] Address [address] [place] [address] Care Team Providers Care Middle School Spanish Teacher Name Role Phone Andra Ness Primary Care [...] on filedocumented in this encounter Care Teams Middle [employer] Spanish Teacher Relationship Specialty Start Date End Date Andra Ness FNP PCP - General Family Medicine 09/24/22 10/12/24 Inactive/Transferred PCP - General 10/13/24 10/13/24 Alla Pizarro Community Health Worker 01/02/23 documented as of this encounter
--- OUTSIDE RECORDS SUMMARY | 2025-01-19 14:43 | XMS_ITS | Encounter Summary ---
Author Organization [employer] Address [address] [place] [address] Care Team Providers Care Cold Type Composing Machine Operator Name Role Phone Andra Ness [...] on filedocumented in this encounter Care Teams Cold Type Composing Machine Operator Relationship Specialty Start Date End Date Andra Ness FNP PCP - General Family Medicine 09/24/22 10/12/24 Inactive/Transferred PCP - General 10/13/24 10/13/24 Alla Pizarro Community Health Worker 01/02/23 documented as of this encounter
--- OUTSIDE RECORDS SUMMARY | 2025-01-19 14:43 | XMS_ITS | Clinical Summary ---
Author Organization [employer] Address [address] [place] [address] Care Team Providers Care Laborer Prestressed Concrete Name Role Phone Alla Pizarro Unavailable Unavailable [...] Overview (12/16/2023): Urged to quit. Down to 2 a pack Urged to cut completely Sending [...] undergo gastric sleeve surgery on 01/01. Through [facility]. Memory changes 08/23/2022 03/09/2024 Immunizations Name Administration Dates Next Due Influenza [...] Dental X-Ray: Full Mouth 05/30/2024 05/29/2021, 09/09 SDOH Screening 09/10/2024 09/10/2023 Depression Screening 03/09/2025 03/09/2024, 09/10/19 24 Tobacco Screening 03/09/2025 03/09/2024 Mammogram 09/18/2026 09/18/2024, [...] TOMOSYNTHESIS BILATERAL Routine 09/18/2024 9:16 AM EST POST-BARIATRIC SURGERY COMPREHENSIVE PROFILE Routine [...] (Negative) Lay letter mailed to patient WSN: [id number] Ordering Physician: Andra Ness Dictated By: ?Jyoti Styles MD Dictated Date/Time: ?09/18/24 10:37 am Reviewed By: ?Jyoti Styles MD Signed By: ? Jyoti Styles MD Signed Date/Time: ? 09/18/24 10:37 am Transcribed By: ? CSB Windshield Technician Date/Time: ? 09/18/24 10:35 am Birads: Procedure Note Faizan Mi - 09/18/2024 PROCEDURE: MM Digital Mammo Screening [...] (Negative) Lay letter mailed to patient WSN: [id number] Ordering Physician: Andra Ness Dictated By: Jyoti Styles MD Dictated Date/Time: 09/18/24 10:37 am Reviewed By: Jyoti Styles MD Signed By: Jyoti Styles MD Signed Date/Time: 09/18/24 10:37 am Transcribed By: MARGARITO Windshield Technician Date/Time: 09/18/24 10:35 am Birads: Andra Ness SOCIAL MEDIA SENIOR ASSOCIATE IM BI NICOLLE mcnair Result * (ABNORMAL) Post-Bariatric Surgery Comprehensive Profile (03/09/2024 10:34 AM EDT) Glucose 83 70 - 99 mg/dL [facility] 1 Hemoglobin A1c CANCELED % [facility] 1 Comment: [facility] [...] D deficiency has been defined by the [place] of Medicine and an Endocrine Society practice guideline as a level of serum 25-OH vitamin D less than 20 ng/mL (1,2). The Endocrine Society went on to further define vitamin D insufficiency as a level between 21 and 29 ng/mL (2). 1. IOM ([place] of Medicine). 2010. Dietary reference ?? intakes for calcium and D. [place]: The ?? National AcademSOAK (Smart Operational Agricultural toolKit) Press. 2. Colt MF, Jose Antonio [place], Cloin LAMB, et al. ?? Evaluation, treatment, and [...] 1 - 03/16/2024 10:05 AM EDT Test(s) 408867-Npy. B1, Whole Blood; 734409-Eldwkq, Serum or Plasma; 746857-Qpgk, Plasma or Serum; 913712-Eqlrdfmbisjta Acid, Serum was developed and its performance characteristics determined by [facility]. It has not been cleared or approved by the Food and Drug Administration. Performed at: ??01 - [facility] [address] ??[id number] Senior Software Project Manager: Delfina Irene MD, Phone: ??[phone] Performed at: ??02 - [facility] [address] ??[id number] Senior Software Project Manager: Kristina Lara MD, Phone: ??[phone] Andra Ness [facility] LAB BLOOD ORDERABLES E dited Result - Final [facility] 1 [facility] 2 * Hepatitis C Antibody w/Reflex HCV Quant PCR (06/03/2023 12:37 PM EDT) Hepatitis C Virus Ab, Serum NEGATIVE (NEG) [facility] Comment: Reference range: Negative This test was performed on the [employer] Consultant immunoassay system. Testing performed or reported by [facility], a Service of [facility], [address] [place] [address] Brian Velazco MD, Rehab Services Aide [facility]# [id number] 06/03/2023 12:3 7 PM EDT 06/03/2023 12:38 PM EDT Andra Ness SOCIAL MEDIA SENIOR ASSOCIATE LAB BLOOD ORDERABLES F inal Result [facility] [address] [place] [address] * Colonoscopy (08/29/2017) Colonoscopy normal Historical Provider HEALTH MAINTENANCE Final Result * Pap Smear (03/21/2015) Pap smear negative Historical Provider HEALTH MAINTENANCE Final Result from Last 3 Months or Most Recently Relevant to Health Maintenance Insurance [facility] OUT OF STATE * Guarantor: Danielle Virk Account Type Relation to Patient Date of Phone Billing Address Dental Self Care Teams Laborer Prestressed Concrete Relationship Specialty Start Date End Date Alla Pizarro Community Health Worker 01/02/23
--- OUTSIDE RECORDS SUMMARY | 2025-01-19 14:43 | XMS_ITS | Encounter Summary ---
Author Organization [employer] Address [address] [place] [address] Care Team Providers Care Operations Section Manager Name Role Phone Andra Ness Primary Care [...] on filedocumented in this encounter Care Teams Operations Section Manager Relationship Specialty Start Date End Date Andra Ness FNP PCP - General Family Medicine 09/24/22 10/12/24 Inactive/Transferred PCP - General 10/13/24 10/13/24 Alla Pizarro Community Health Worker 01/02/23 documented as of this encounter
--- OUTSIDE RECORDS SUMMARY | 2025-01-19 14:43 | XMS_ITS | Data Portability ---
Author Organization GREY Weiner glenda [address] Address [address] [place] [address] Assessment Encounter Date Assessment Date Assessment LastModified [...] view 2023 024 [email or web address] [facility], [address] [place], [address], 12:00:56 Medication Orders Zithromax Z-Robert 250 mg tablet 2023 024 [id number], [address], [place], [id number], 4 11:59:04 benzonatate 200 mg capsule 2023 024 ALYSHA Correa [id number], [address], [place], [id number], 4 11:59:08 cefpodoxime 200 mg tablet 2023 024 [id number], [address], [place], [id number], 4 11:59:02 Patient TargetsNo targets recorded. Patient Instructions Encounter Date Encounter Id Patient Instructions Last Modified By Organization Details Last Modified Time 05/22/2024 [id number] Acute Sinusitis: Care Instructions delmis Not available 05/22/2024 11:59:16 cough: care instructions ronchaga Not available 05/22/2024 11:00:05 Reason for Referral None Reported. Results Created Date Observation Date Name Description Value Unit Range Abnormal Flag Note LastModifiedBy Organization Detail LastModifiedTime 05/22/20 24 05/22/2024 XR, chest , 2 view No observ ation record ed. delmis [facility] [address] [facility] [place], [address], 05/23/2024 11:43:18 Result Notes None recorded. Problems Name Problem SNOMED Code Status Onset Date Resolution Date Notes Provider Name and Address Organization Details Recorded Time Fibromyalgia 864636358 Active Tereza quezada, [place] - [facility] 4 10:43:52 Arthritis 3196627 Active Tereza quezada, [place] - [facility] 4 10:43:59 Cough 21611489 Active 2023 GAB CARREON NP [address] [place], [address], [place] - [facility] 4 10:53:24 Persistent cough 424307720 Active 2023 GAB CARREON NP [address] [place], [address], [place] - [facility] 4 10:59:43 Atypical pneumonia 466268232 Active 2023 GAB CARREON NP [address] , [place], [address], [place] - [facility] 4 11:57:40 Acute sinusitis 20440237 Active 2023 GAB CARREON NP [address] [place], [address], [place] - [facility] 4 11:59:02 Problem Notes None recorded. Procedures Surgical History None recorded. Imaging Results Imaging Date Name Status LastModified by Organiz ation Details LastModified Time 05/22/2024 XR, chest, 2 [facility] [address] [place], [address], 05/23/2024 11:43:18 Procedure Notes None recorded. Medical Equipment None Reported. Allergies Allergen ID Allergen Name Allergen Category Reaction Reaction Severity Criticality Documentation Date Start Date Code Code System Note Provider Name and Address Organization Details Recorded Time 356924 Substance with sulfonami de structure and antibacte rial mechanism of action (substanc e) medicatio n Not available Not available Not available 05/22/2024 14453 8003 SNOMED Terezasophia Michael [facility], [place] - [facility] 4 10:42:30 [...] Updated DateTime 4 154.94 cm 29.3 kg/m2 27795.8 2 g 98 % 98 % 53 /min 18 /min 98 [degF] 151 mm[Hg] 95 mm[Hg] Tereza EDMONDS - [facility] 10:41:59 Social History None recorded. Functional Status Question Answer Note LastModified by Organizat ion Details LastModified Time Do you use any illicit or recreational drugs? No Information not available 05/22/2024 Do you or have you ever used any other forms of tobacco or nicotine? No Information not available 05/22/2024 What is your level of alcohol consumption? Occasional Information not available 05/22/2024 Mental Status None recorded. Family History Relationship [...] SNOMED-CT Code Diagnosis ICD10 Code Diagnosis Note [id number] [address] [address] [address] 08/16/2020 08:12:56 08/16/2020 10:40:57 [id number] 2099[facility] [address] [address] 06/04/2019 10:36:12 06/04/2019 11:04:57 [id number] GREY KASPER [address] [address] 05/22/2024 10:32:20 05/22/2024 12:00:56 Cough 26318807 R05.9 Persistent cough 0014757 02 R05.3 Atypical pneumonia 55445 6009 J18.9 Acute sinusitis 95964259 J01.90 Health Concerns Section Related Observation LastModified by Organization Detai ls LastModified Time None Recorded Concern Status LastModified by Organization Details LastModified Time None Recorded Advance Directives Directive None Recorded Payers Insurance Date Sequence Insurance Name Policy Number Policy Smith Covered Member ID Smith Member ID Guarantor Name 05/22/2024 1 [place] [id number] Humberto [place] Disanti [id number] AB Danielle Cristofer Disanti Notes Date Note Type Note Provider [...] 1/2 a pack GAB CARREON NP [address] [place], [address], [place] - [facility] 05/22/2024 12:01:12 OBGyn Episode No OBEpisode recorded.
== END 2025-01-19 13:55 | disposition home or self-care (01) ==
LOC: HO.HBS 13:37
PROVIDERS: PCP Nurse Practitioner Family; Visit Provider Physician Assistant Surgical
DX: Z71.3 Dietary counseling and surveillance (principal); Z98.84 Bariatric surgery status
CPT/HCPCS: 99024

== ENCOUNTER 2025-04-19 11:30 | Outpatient (AMB) | payer BC, SELFPAY ==
--- NOTE | 2025-04-19 08:48 | MHC.OFFVISWM ---
VS Expanded 04/19/25 08:49 Height 5 ft 0.5 in Weight 134 lb 8 oz BMI 25.8 Body Fat % 20.9 Fat Free Mass 106.6 Visceral Fat Rating 7 Body Water % 54.2 Muscle Mass/Score 100 Basal Metabolic Rate/Score 1,378 Intake Visit Reasons: TV PO LSG 01/08/24 Allergies Sulfa (Sulfonamide Antibiotics) Allergy (Mild, Verified 11/26/24 13:34) rash HPI Comments Details: This?a?60?yo female who is s/p LSG without hiatal hernia repair on?01/08/2024. Presents for 1 year 3 month post op visit. Weight today is 134.8 pounds, with a BMI of 25.8. There has been a 95.2 pound weight loss,(initial weight 230 pounds) since starting the program on 11/01/2023 reflecting a 41.3% total body weight loss and a weight loss of 73.7 pounds since surgery (operative weight 208.5 pounds) reflecting a 35.3 % TBWL since surgery. No complaints of nausea, emesis, abdominal pain or reflux. Reports infrequent but normal bowel movements every 2-3 days and uses stool softeners regularly. Taking celebrate MVI. Patient began to experience right upper quadrant abdominal pain. Found to have cholelithiasis consistent with symptomatic cholelithiasis. She underwent laparoscopic cholecystectomy on 11/19/2024. Pathology revealed chronic cholecystitis and cholelithiasis. She reports that since the surgery, she did have some right upper quadrant discomfort postoperatively but this is improving. She additionally experienced shoulder pain which has resolved. She continues on her meal plan without any difficulty. She is very happy with her results. recommended meal plan includes: celebrate bar 8-10 Celebrate 4 in 1 shake, 2 scoops , 1-3 Celebrate or Rubin protein bar 4-6 Meal with 6 forks of protein and 4 forks of vegetables drinking 60-70 oz fluids Exercise routine includes: walking 4 miles 4-5 days peer week [facility] Medical History BMI 38.0-38.9,adult Obesity Back pain GERD (gastroesophageal reflux disease) Cholelithiasis DJD (degenerative joint disease) Hypertension Morbid obesity Surgical History Hx of cholecystectomy History of bariatric surgery History of esophagogastroduodenoscopy (EGD) History of ventral hernia repair History of hysterectomy History of delivery Family History Father Bone cancer Social History Household Members: Family Housing: House Are you a primary after school caregiver to a significant other at home: No Do you presently have visiting nurse or other home services: No Alcohol intake: current Alcohol intake frequency: does not drink Alcohol type: hard liquor Patient Tobacco Use Status: Current everyday Tobacco user Tobacco use type: Cigarette Cigarette Packs Per Day: 0 Cigarettes Per Day: 10 Years Smoked: 43 service: No Telehealth Telehealth Telehealth Platform: Telephone Location of provider rendering services: practice address Location of patient: address on file Patient Identification confirmed using: Name, : Yes Telehealth method: voice only Patient verbally consented to treatment: Yes Patient verbally consented to billing insurance company: Yes Patient informed of any privacy concerns related to visit: Yes Minutes spent on Phone/Video with Pt.: 15 Assessment & Plan Assessment & Plan (1) S/P laparoscopic sleeve gastrectomy: Code(s): Z98.84 - Bariatric surgery status Category: Surgical Plan: Overall, she is doing very well. She has achieved a healthy weight and continues to exercise regularly.. She has an extra bar daily if she is unable to have her meal at night. She continues to communicate if there are any issues. We will have her return to the clinic in 3 months. Check labs at that time. She does state that she was unable to get labs done in January as she recently had them done by her primary care physician. Follow-up labs in July.
[2025-04-19 08:49] VITALS: BMI 25.8
--- OUTSIDE RECORDS SUMMARY | 2025-04-19 12:11 | XMS_ITS | Encounter Summary ---
Author Organization [employer] Address [address] [facility] [address]t [place] [address] Care Team Providers Care Heat Treating Operator Name Role Phone Andra Ness Primary Care Provider Unavailable Alla Pizarro Unavailable Unavailable Inactive/Transferred Primary Care Provider Unava ilable Reason for Visit * Reason Onset Date Comments Med Refill 09/17/2023 Encounter Details Date Type Department Care Team (Late st Contact Info) Description 09/17/2023 Refill [place] [facility] [address] [place] [address] Andra Ness FNP Chronic osteoarthritis Social History [...] site documented in this encounter Care Teams Heat Treating Operator Relationship Specialty Start Date End Date Andra Ness FNP PCP - General Family Medicine 09/24/22 10/12/24 Inactive/Transferred PCP - General 10/13/24 10/13/24 Alla Pizarro Community Health Worker 01/02/23 documented as of this encounter
--- OUTSIDE RECORDS SUMMARY | 2025-04-19 12:11 | XMS_ITS | Encounter Summary ---
Author Organization [facility] Address [facility] [address] [place] [address] Phone Care Team Providers Care Boilermaker Industrial Boilers Name Role Phone Demetris Schkameron Andra Matt WEBSITE ADMIN Primary Care Pr ovider Rosemary Klein MD Unavailable [phone] Rosemary Klein MD Unavailable [phone] Reason for Referral * MRI/CAT Scan - Closed Specialty Diagnoses / Procedures Referred By Contac t Referred To Contact Procedures CT Abdomen Outside (No Interpretation) System, Provider Not In, [facility] [address] [address] Referral ID Status Reason Start Date Expiration Date Visits Re quested Visits Authorized [id number] Closed 02/18/2019 02/18/2020 1 1 Encounter Details Date Type Department Care Team (Late st Contact Info) Description 02/18/2019 Ancillary Orders [facility],Outside Imaging [address] [place] [address] System, Provider Not In, [facility] [address] [address] Social History Tobacco Use Types Packs/Day Years Used Date Smoking Tobacco: Every Day Cigarettes Smokeless Tobacco: Never Alcohol Use Standard Drinks/Week Comments Not Currently 0 (1 standard drink = 0.6 oz pur e alcohol) Comments No Sex and Gender Information Value Date Recorded Sex Assigned at Not on file Legal Sex Female 10:33 PM EDT Gender Identity Not on file Sexual Orientation Not on file documented as of this encounter Functional Status documented as of this encounter Plan of Treatment Not on file documented as of this encounter Results * CT Abdomen Outside (No Interpretation) (02/10/2019 12:00 AM EDT) Narrative SYSTEMGENERATED, DOCUMENTATION - 02/18/2019 1:28 PM EDT This study is for PACS storage only and not for interpretation. us Provider Not In System [facility] OUTSIDE IMAGING W /OUT INTERPRETATION Final Result documented in this encounter Visit Diagnoses Not on filedocumented in this encounter Care Teams Boil[employer]aker Industrial Boilers Relationship Specialty Start Date End Date Andra Grayson NP [address] [place] [address] PCP - General Family Medicine 02/13/19 Rosemary Klein MD [address] [place] [address] Insurance Assigned Provider 03/14/19 01/13/22 Rosemary Klein MD [address] [place] [address] Insurance Assigned Provider 12/14/23 documented as of this encounter Additional Source Comments The information contained in this document represents components of the legal health record. It is not the complete legal health record.[facility]
== END 2025-04-19 12:06 | disposition home or self-care (01) ==
LOC: HO.HBS 11:36
PROVIDERS: PCP Nurse Practitioner Family; Visit Provider Physician Assistant Surgical
DX: E66.3 Overweight (principal); Z68.25 Body mass index [BMI] 25.0-25.9, adult; Z90.3 Acquired absence of stomach [part of]; Z98.84 Bariatric surgery status
CPT/HCPCS: 98967

== ENCOUNTER → 2025-04-19 11:30 | Outpatient (BNVA) | payer BC, SELFPAY | PROVIDERS: PCP Nurse Practitioner Family; Visit Provider Physician Assistant Surgical | DX: Z90.49 Acquired absence of other specified parts of digestive tract (principal); Z98.84 Bariatric surgery status; E87.6 Hypokalemia; I10 Essential (primary) hypertension | CPT/HCPCS: 98967 ==

== ENCOUNTER 2025-08-30 14:26 | Outpatient (AMB) | payer BC, SELFPAY ==
--- NOTE | 2025-08-30 14:29 | MHC.OFFVISWM ---
VS Expanded 08/30/25 14:40 BP 178/88 H Blood Pressure Location Rt brachial Blood Pressure Position Sitting Pulse 75 Pulse Source Pulse Oximeter Temp 96.8 F Temperature Source Temporal Artery Scan Pulse Oximetry 97 Oxygen Delivery Method Room Air Height 5 ft 0.5 in Weight 140 lb 6.4 oz BMI 27.0 Body Fat % 26.3 Body Fat Mass 36.8 Fat Free Mass 103.4 Visceral Fat Rating 6.0 Body Water % 52.2 Body Water Mass 73.2 Muscle Mass/Score 98.2 Basal Metabolic Rate/Score 1,368 Intake Visit Reasons: OV PO LSG 01/08/24 Allergies Sulfa (Sulfonamide Antibiotics) Allergy (Mild, Verified 08/30/25 14:37) rash Medication List - Last Reconciled 08/30/25 by GREY Franco clotrimazole 1% 1 appl topical BID hydrocodone-acetaminophen 10-325 mg 1 tab PO TID PRN nicotine 1 patch transdermal DAILY nicotine 1 patch transdermal Q24H nicotine 1 patch transdermal DAILY sennosides (senna) 17.2 mg (2 x 8.6 mg) PO BEDTIME PRN HPI Comments Details: This a 60 yo female who is s/p LSG without hiatal hernia repair on 01/08/2024. Presents for 1 year 7 month post op visit. Weight today is 140 pounds, with a BMI of 27. Weight gain of 5.2lb since last OV in April 2025. Initial weight 230 pounds starting the program on 11/01/2023 and operative weight 208.5 pounds. Also s/p lap veena in November 2024. No complaints of nausea, emesis, abdominal pain or reflux. Reports infrequent but normal bowel movements every 2-3 days and uses stool softeners regularly. Taking celebrate MVI. She is very happy with her results. She continues to communicate with Dr Jagdeep thao with weight measurements. She checks her weight daily. She is struggling with excess skin of the arms and legs as well as the abdomen. She finds arms and legs most bothersome. Regarding thighs, she experiences chafing with skin rubbing together. She has tried topical creams without relief. Cannot wear shorts or a swimsuit without discomfort. Has to wear long pants at all times to prevent pain and discomfort. Normal activities of daily living like walking are more painful/uncomfortable due to excess skin rubbing together. Excess skin is heavy, which pulls on her hips and worsens her sciatica. When she is working at her job cleaning, this makes her work more difficult. Regarding arms, she has to wear longer sleeves at all times to prevent chafing of arms against torso. Excess skin gets caught in her bra strap and pinched. 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 She is a smoker. She understands she has to quit. recommended meal plan includes: celebrate bar 8-10 Celebrate 4 in 1 shake, 2 scoops , 1-3 Celebrate or Rubin protein bar 4-6 Meal with 6 forks of protein and 4 forks of vegetables drinking 60-70 oz fluids Exercise routine includes: walking 4 miles 4-5 days peer week strength training Have you been diagnosed with reflux (GERD)? Score 0-5: 0=no symptoms, 1=noticeable but not bothersome (slight or occasional), 2=noticeable, bothersome but not daily, 3=bothersome and daily, 4=affects daily activities, 5=incapacitating, unable to do daily activities How bad is the heartburn: 0 Heartburn when lying down: 0 Heartburn when standing up: 0 Heartburn after meals: 0 Does heartburn change your diet: 0 Does heartburn wake you up from sleep: 0 Do you have difficulty swallowin Do you have pain with swallowin If you take medication for reflux, does this affect your daily life: 0 Total score: 0 [facility] Medical History BMI 38.0-38.9,adult Obesity Back pain GERD (gastroesophageal reflux disease) Cholelithiasis DJD (degenerative joint disease) Hypertension Morbid obesity Surgical History Hx of cholecystectomy History of bariatric surgery History of esophagogastroduodenoscopy (EGD) History of ventral hernia repair History of hysterectomy History of delivery Family History Father Bone cancer Social History Household Members: Family Housing: House Are you a primary healthcare project manager to a significant other at home: No Do you presently have visiting nurse or other home services: No Alcohol intake: current Alcohol intake frequency: does not drink Alcohol type: hard liquor Patient Tobacco Use Status: Current everyday Tobacco user Tobacco use type: Cigarette Cigarette Packs Per Day: 0 Cigarettes Per Day: 10 Years Smoked: 43 service: No Assessment & Plan Assessment & Plan (1) S/P laparoscopic sleeve gastrectomy: Code(s): Z98.84 - Bariatric surgery status Category: Surgical (2) Overweight: Code(s): E66.3 - Overweight Category: Medical Plan Pt doing well with no complications from surgery. She will continue monthly checkins with Dr Gannon. She is experiencing issues of excess skin of both arms and legs, resulting in painful chafing, limitation of activities of daily living due to pain and discomfort (including her job), and requiring the use of special clothing. Clotrimazole ointment ordered. Labs ordered. RTC 1mo to see Isamar. Orders: Orders Insulin Today Z98.84 - Bariatric surgery status C Reactive Protein Today Z98.84 - Bariatric surgery status Vitamin A Today Z98.84 - Bariatric surgery status Ferritin Today Z98.84 - Bariatric surgery status TSH reflex Free T4 Today Z98.84 - Bariatric surgery status Hemoglobin A1c Today Z98.84 - Bariatric surgery status Complete Blood Count Auto Diff Today Z98.84 - Bariatric surgery status Lipid Panel Today Z98.84 - Bariatric surgery status IRON PROFILE Today Z98.84 - Bariatric surgery status Zinc Today Z98.84 - Bariatric surgery status Vitamin B12 and Folate Today Z98.84 - Bariatric surgery status Comprehensive Met. Panel Today Z98.84 - Bariatric surgery status Vitamin B1 Today Z98.84 - Bariatric surgery status Vitamin D 25-OH Total Today Z98.84 - Bariatric surgery status Medications: New nicotine start after 2 weeks of therapy with 21mg patches 1 patch transdermal DAILY 14 ea 0RF nicotine 1 patch transdermal Q24H 14 ea 0RF clotrimazole 1% 1 appl topical BID 45 grams 3RF nicotine 1 patch transdermal DAILY 14 ea 0RF
[2025-08-30 14:40] VITALS: BP 178/88; PULSE 75; TEMP 36; O2SAT 97; BMI 27.0
--- OUTSIDE RECORDS SUMMARY | 2025-08-30 17:52 | XMS_ITS | Encounter Summary ---
Author Organization [facility] Address [facility] [address] [place] [address] Phone Care Team Providers Care Copy Writer Name Role Phone Demetris Schkameron Andra Matt DEPUTY [place] COUNSEL Primary Care Pr ovider Rosemary Klein MD Unavailable [phone] Rosemary Klein MD Unavailable [phone] Reason for Referral * MRI/CAT Scan - Closed Specialty Diagnoses / Procedures Referred By Contac t Referred To Contact Procedures CT Abdomen Outside (No Interpretation) System, Provider Not In, [facility] [address] [address] Referral ID Status Reason Start Date Expiration Date Visits Re quested Visits Authorized [id number] Closed 02/18/2019 02/18/2020 1 1 Encounter Details Date Type Department Care Team (Late st Contact Info) Description 02/18/2019 Ancillary Orders [facility],Outside Imaging [address] [place] [address] System, Provider Not In, [facility] [address] [address] Social History Tobacco Use Types Packs/Day Years [...] on file documented as of this encounter Plan of [...] on filedocumented in this encounter Care Teams Copy Writer Relationship Specialty Start Date End Date Andra Grayson NP [address] [place] [address] PCP - General Family Medicine 02/13/19 Rosemary Klein MD [address] [place] [address] Insurance Assigned Provider 03/14/19 01/13/22 Rosemary Klein MD [address] [place] [address] Insurance Assigned Provider 12/14/23 documented as of this encounter Additional Source Comments The information contained in this document represents components of the legal health record. It is not the complete legal health record.[facility]
--- OUTSIDE RECORDS SUMMARY | 2025-08-30 17:53 | XMS_ITS | Encounter Summary ---
Author Organization [employer] Address [address] [place] [address] Care Team Providers Care Manager Gallery Name Role Phone Andra Ness Primary Care [...] on filedocumented in this encounter Care Teams Manager Gallery Relationship Specialty Start Date End Date Andra Ness FNP PCP - General Family Medicine 09/24/22 10/12/24 Inactive/Transferred PCP - General 10/13/24 10/13/24 Alla Pizarro Community Health Worker 01/02/23 documented as of this encounter
--- OUTSIDE RECORDS SUMMARY | 2025-08-30 17:53 | XMS_ITS | Encounter Summary ---
Author Organization [employer] Address [address] [place] [address] Care Team Providers Care Commercial Painter Name Role Phone Andra Ness Primary Care [...] on filedocumented in this encounter Care Teams Commercial Painter Relationship Specialty Start Date End Date Andra Ness FNP PCP - General Family Medicine 09/24/22 10/12/24 Inactive/Transferred PCP - General 10/13/24 10/13/24 Alla Pizarro Community Health Worker 01/02/23 documented as of this encounter
--- OUTSIDE RECORDS SUMMARY | 2025-08-30 17:53 | XMS_ITS | Clinical Summary ---
Author Organization [facility] Address [address] [address] Phone Care Team Providers Care Supervisor Pleating Name Role Phone Andra Grayson NP Primary Care Pr ovider Rosemary Klein MD Unavailable [phone] Allergies Active Allergy Reactions Criticality Noted Date Comments Sulfa (Sulfonamide Antibiotics) Hives 02/07 Medications albuterol 90 mcg/actuation inhaler Inhale 2 puffs into the lungs every 6 (six) hours as needed for wheezing. Active tiZANidine (ZANAFLEX) 2 MG tablet Take 2 mg by mouth as needed (1-2 orally at night). Active HYDROcodone-stephanie taminophen (XODOL 10-300) 10-300 mg per tablet Take 1 tablet by mouth every 6 (six) hours as needed for pain (specific location in comments). 1 tablet orally by mouth as needed Active nystatin-triamc inolone creamIndication s:Tinea cruris Apply to affected area 2 times daily 30 g 9 Active Additional Information Patient not taking.Reported on 09/03/2023 buPROPion (WELLBUTRIN SR) 150 MG SR 12 hr tablet Take 150 mg by mouth 2 (two) times a day. 1 Active chlorthalidone (HYGROTON) 25 MG tablet TAKE 1 TABLET BY MOUTH EVERY MORNING WITH FOOD 1 Active DULoxetine (CYMBALTA) 60 MG capsule 1 Active meloxicam (MOBIC) 15 MG tablet Take 15 mg by mouth daily. 1 Active valsartan (DIOVAN) 160 MG tablet Take 160 mg by mouth daily. 1 Active ascorbic acid (VITAMIN C ORAL) Take by mouth. Activ e Active Problems Problem Noted Date Diagnosed Date Cigarette smoker 09/03/2023 Obesity 09/03/2023 Low back pain at multiple sites 11/14/2022 Overview (09/03/2023): Chronic - worse with walking PT co-pays too expensive. Starting to exercise with her tonhaylee (06/03/23) Fatty infiltration of liver 10/11/2022 Overview (09/03/2023): Diffuse hepatic hypoattenuation seen with diffuse fatty infiltration of the liver seen on CT (10/11/22) Last ask phos nml @ 85 (06/03/23); mild elevation in ggt @ 46 (06/03/23) Allergic rhinitis 08/23/2022 Chronic fatigue 08/23/2022 Chronic osteoarthritis 08/23/2022 Fibromyalgia 08/23/2022 Hyperlipidemia 08/23/2022 Hypertension 08/23/2022 Memory changes 08/23/2022 Mixed incontinence 08/23/2022 Reactive depression 08/23/2022 Pelvic pain 03/20/2019 Recurrent incisional hernia 02/17/2019 Assessment & Plan (05/14/2019 12:10 PM EDT): The patient presents back to discuss her ventral incisional hernia. Since her CT scan done in February, she has had a total hysterectomy in which a lot of adhesions were involved. I explained to her that it might be hard or even impossible to fix her hernia at this time without risk of damage to bowel. She could consider seeing about having this repaired in [place]. She is still having some vomiting after eating and she could consider upper endoscopy or small bowel follow-through. From her description, I do not feel she is having signs of bowel obstruction. I cannot feel a hernia on exam today. She could have another CT scan now but I doubt there is something we can fix surgically at this time. She could wait and have another CT scan in about six months. If she does not wish to have further imaging or scopes, I would advise increased Colace, MiraLax, and increased water intake, striving for soft stools to see if she then feels better. She understands the instructions for that regimen and will get back to us if she wishes any further testing. Assessment & Plan (02/17/2019 12:51 PM EDT): The patient has been having sharp LLQ abdominal pain. CT scan shows a hernia repair that appears to have opened up. The bladder also appears to possibly be involved and I explained requiring possible open component with lap repair. It is possible that some of her pain is related to this hernia. The risks and benefits of laparoscopic hernia repair including but not limited to the risks of infection, bleeding, chronic pain, infection of the mesh, need for an open operation, damage to organs and heart/lung risks of anesthesia have been explained to the patient. The patient understands those risks and wishes to proceed. The patient understands the signs and symptoms of hernia strangulation and will seek immediate medical attention should a pinching feeling or severe pain in the area of the hernia, fever, chills, nausea, and/or vomiting develop. She also has an abnormal looking uterus on CT scan with thickening. She has a history of uterine ablation done in 2016, however, says she is still passing blood clots, although not red blood. The patient needs to be seen by title supervisor prior to any hernia repair and appointment is made for tomorrow afternoon. If any title supervisor procedures are required, that will have to be done prior to hernia surgery. She has a plan to go to [place] for three weeks in March which she is considering canceling. Chronic idiopathic constipation 02/17/2019 Assessment & Plan (05/14/2019 12:05 PM EDT): The patient will increase her Colace use, consider MiraLax, increase her water intake and strive for soft stools to see if this improves her abdominal symptoms. Assessment & Plan (02/17/2019 12:50 PM EDT): The patient has had a change in bowel habits with narrowed stools. CT scan shows backed up stool in the colon. Recommendation is for colonoscopy which she may return to [facility] for and I would recommend Dr. Alicea of GI there. I have recommended she take Colace daily and also consider MiraLax and suppositories. Change in bowel habits 02/17/2019 Assessment & Plan (02/17/2019 11:20 AM EDT): The patient has backed up stool seen on CT scan as well as narrow stools for the past couple of weeks. Recommendation is for colonoscopy. Her last was done at [place] and I have recommended she see Dr. Alicea of GI at [place] for colonoscopy. I will speak with Dr. Alicea regarding this. Resolved Problems Problem Noted Date Diagnosed Date Resolved Date Menometrorrhagia 03/20/2019 05/13/2019 Dysmenorrhea 03/20/2019 05/13/2019 Hematometra 03/20/2019 05/13/2019 Dysfunctional uterine bleeding 02/17/2019 05/13/2019 Assessment & Plan (02/17/2019 12:52 PM EDT): She also has an abnormal looking uterus on CT scan with thickening. She has a history of uterine ablation done in 2017, however, says she is still passing blood clots, although not red blood. The patient needs to be seen by title supervisor prior to any hernia repair and appointment with title supervisor is made for tomorrow afternoon. Immunizations Immunization Administration Dates Next Due INFLUENZA, SPLIT VIRUS, TRIV ALENT W/ PRESERVATIVE IM 06/14/2021 Influenza Quadrivalent MDCK Preservative Free IM 08/28/2023 Influenza Quadrivalent Prese rvative Free IM 06/14/2021,05/24/2020 Pneumococcal conjugate PCV20 11/16/2022 Rabies Fibroblast Culture 06/29/2017,,06/18/2017,2016 Tdap 06/11/2017 Zoster recombinant 07/10/2021,06/14/2021 Family History Medical History Relation Comments Bone cancer Father Lupus Mother Relation Status Comments Father Mother Social History Tobacco Use Types Packs/Day Years Used Date Smoking Tobacco: Former Cigarettes Smokeless Tobacco: Never Comments:smoking since age [age] Alcohol Use Standard Drinks/Week Comments Not Currently 0 (1 standard drink = 0.6 oz pur e alcohol) Education Answer Date Recorded Are you interested in more education? Not on dontae e 01/04/2023 Are you concerned about learning? Not on file 01/04/2023 No 01/04/2023 No 01/04/2023 Digital Access Answer Date Recorded No 02/04/2023 No 02/04/2023 Reliable internet access at home? Not on file 02/04/2023 Device with a working camera? Not on file Comments No Sex and Gender Information Value Date Recorded Sex Assigned at Not on file Legal Sex Female 10:33 PM EDT Gender Identity Not on file Sexual Orientation Not on file Last Filed Vital Signs Vital Sign Reading Time Taken Comments Blood Pressure 124/88 09/03/2023 3:38 PM EST Pulse 77 05/14/2019 10:04 AM EDT Temperature 37.3 C (99.1 F) 03/21/2019 5:49 AM EDT Respiratory Rate 20 03/21/2019 5:49 AM EDT Oxygen Saturation 97% 05/14/2019 10:04 AM EDT Inhaled Oxygen Concentration - - Weight 95.3 kg (210 lb) 01/10/2021 2:27 PM EDT Height 154.9 cm (5' 1 ) 01/10/2021 2:27 PM EDT Body Mass Index 39.68 01/10/2021 2:27 PM EDT Plan of Treatment Health Maintenance Due Date Last Done Comments CREATININE LEVEL 1966 POTASSIUM LEVEL 1966 DEPRESSION SCREENING 1978 SMOKING Hx and SMOKELESS TOBACCO SCREENING 1979 HIV ONE-TIME SCREENING (18-65 YEARS) 01/20/1984 COLOGUARD 2011 COLONOSCOPY 2011 COLORECTAL CANCER SCREENING 2011 FIT TEST 2011 FOBT 2011 SIGMOIDOSCOPY 2011 VIRTUAL COLONOSCOPY 2011 BLOOD PRESSURE 03/04/2024 09/03/2023 INFLUENZA VACCINE (#1) 2025 3, 06/14/2021, 06/14/2021, Additional history exists COVID-19 VACCINE ( season) 2025 08/28/2023, 08/08/2021, 02/07/2021, Additional history exists MAMMOGRAM 08/28/2025 08/28/2023, 08/10, 08/28/2023 Adult Td,Tdap Booster 06/11/2027 06/11/2017 LIPID PANEL 11/11/2028 11/12/2023, 01/30/2021 RSV VACCINE (1 - 1-dose 75+ series) 2041 ZOSTER VACCINES Completed 07/10/2021, 06/14/2021 PNEUMOCOCCAL VACCINES (50+ years) Completed 11/16/2022 HEPATITIS C SCREENING Completed 06/03/2023 HEPATITIS A VACCINES Aged Out No long er eligible based on patient's age to complete this topic HIB VACCINES Aged Out No longer eligi ble based on patient's age to complete this topic MENINGOCOCCAL VACCINES (ACWY) Aged Out No longer eligible based on patient's age to complete this topic MENINGOCOCCAL VACCINES (B) Aged Out N o longer eligible based on patient's age to complete this topic Medical Devices Not on file Insurance [facility] OUT OF [facility] PPO BLUE CROSS OUT OF STATE PPO BLUE CROSS OUT OF STATE PPO Member Subscriber Plan / Payer ( fective 2021-Present) Name:Danielle Virk Member ID:[id number] Relation to Subscriber:Spouse Name:GARY VIRK Subscriber ID:[id number] Date of :1899 (Home) Address: [address] [place] Payer ID:[id number] (NAIC) Type:PPO Address: [address] [place] [address] BLUE CROSS OUT OF STATE PPO Advance Directives For more information, please contact: [phone] (9AM - 5PM Janet/[facility], Saturday-Saturday) Documents on File Type Date Recorded Patient Two Way Radio Installer Expl anation Healthcare Proxy 03/23/2019 1:45 PM * Full Code (Presumed) (Latest Code Status on File) Date Activated Date Inactivated Comments 03/20/2019 2:28 PM 03/21/2019 12:55 PM * Full Code (Presumed) Date Activated Date Inactivated Comments 03/20/2019 9:45 AM 03/20/2019 2:27 PM Care Teams Supervisor Pleating Relationship Specialty Start Date End Date Andra Grayson NP [address] [place] [address] PCP - General Family Medicine 02/13/19 Rosemary Klein MD [address] [place] [address] [email or web address] Insurance Assigned Provider 12/14/23 Additional Source Comments The information contained in this document represents components of the legal health record. It is not the complete legal health record.[facility]
--- OUTSIDE RECORDS SUMMARY | 2025-08-30 17:53 | XMS_ITS | Encounter Summary ---
Author Organization [employer] Address [address] [place] [address] Care Team Providers Care Picker/Puller Name Role Phone Andra Ness Primary Care Provider Unavailable Alla Pizarro Unavailable Unavailable Inactive/Transferred Primary Care Provider Unava ilable Encounter Details Date Type Department Care Team (Late st Contact Info) Description 08/27/2022 Abstract Sarahi [facility] [address] [place] [address] Dental, Provider, DDS Social History Tobacco Use [...] on filedocumented in this encounter Care Teams Picker/Puller Relationship Specialty Start Date End Date Andra Ness FNP PCP - General Family Medicine 09/24/22 10/12/24 Inactive/Transferred PCP - General 10/13/24 10/13/24 Alla Pizarro Community Health Worker 01/02/23 documented as of this encounter
--- OUTSIDE RECORDS SUMMARY | 2025-08-30 17:53 | XMS_ITS | Encounter Summary ---
Author Organization [facility] Address [facility] [employer] [facility] [address] [place] [id number] Phone Care Team Providers Care Csr Retail Name Role Phone Andra Grayson NP Primary Care Pr ovider Rosemary Klein MD Unavailable [phone] Rosemary Klein MD Unavailable [phone] Encounter Details Date Type Department Care Team (Late st Contact Info) Description 03/20/2019 Procedure Pass OR Admitting Dept - Virtual Department [address] [place] [id number] Social History Tobacco Use Types Packs/Day Years Used Date Smoking Tobacco: Every Day Cigarettes Smokeless Tobacco: Never Comments:smoking since age [...] on filedocumented in this encounter Care Teams Csr Retail Relationship Specialty Start Date End Date Andra Grayson, SUSANA [address] [place] [address] PCP - General Family Medicine 02/13/19 Roesmary Klein MD [address] [place] [address] [email or web address] Insurance Assigned Provider 03/14/19 01/13/22 Rosemary Klein MD [address] [place] [address] [email or web address] Insurance Assigned Provider 12/14/23 documented as of this encounter Additional Source Comments The information contained in this document represents components of the legal health record. It is not the complete legal health record.[facility]
--- OUTSIDE RECORDS SUMMARY | 2025-08-30 17:53 | XMS_ITS | Clinical Summary ---
Author Organization [employer] Address [address] [place] [address] Care Team Providers Care Personal Banking Officer Name Role Phone Alla Pizarro Unavailable Unavailable [...] the morning. 30 tablet 3 Active nicotine (Nicoderm CQ) 21 MG/24HR patchIndications: [...] undergo gastric sleeve surgery on 01/01. Through [facility]. Memory changes 08/23/2022 03/09/2024 Immunizations Immunization Administration Dates Next Due Influenza Injectable Quadriv [...] 81 03/09/2024 9:52 AM EDT Temperature 36.4 C (97.6 F) 03/09/2024 9:52 AM EDT Respiratory Rate 18 09/16/2023 4:26 PM EST [...] FOBT 1966 HIV Screening 1966 Sigmoidoscopy 1966 Disability Screening 1966 Alcohol/Substance Use Screening 1978 Hepatitis A Vaccines (1 of 2 - Risk 2-dose series) 1985 Hepatitis B Vaccines (1 of 3 - 19+ 3-dose series) 1985 RSV Patients and Patients Aged 60 years or older (1 - Risk 50-74 years 1-dose series) 01/20/2016 Dental X-Ray: Bitewings 05/30/2022 05/29/20, 12/08/2018, 10/22/2016, Additional history exists Dental Oral Exam 11/19/2022 05/21/2022, , 12/08/2018, Additional history exists Dental Prophylaxis 11/19/2022 05/21/2022, 0 05/29/2021, 12/08/2018, Additional history exists Dental X-Ray: Full Mouth 05/30/2024 05/29/2021, 09/09 SDOH Screening 09/10/2024 09/10/2023 Depression Screening 03/09/2025 03/09/2024, 09/10/19 24 Tobacco Screening 03/09/2025 03/09/2024 COVID-19 Vaccine ( season) 2025 08/28/2023, 08/08/2021, 02/07/2021, Additional history exists Influenza Vaccine (#1) 2025 , 06/14/2021, 06/14/2021, Additional history exists Mammogram 09/18/2026 09/18/2024, 08/10, 08/28/2023, Additional history exists DTaP/Tdap/Td Vaccines (2 - Td or Tdap) 06/11/2027 06/11/2017 Colonoscopy 08/29/2027 08/29/2017, 08/10, 08/29/2017 Colorectal Cancer Screening 08/29/2027 Lipid Panel 03/09/2029 03/09/2024, 01/08, 01/30/2021 Cervical Cancer Screening Discontinued Pap Smear Discontinued [...] patient's age to complete this topic Meningococcal B Vaccine Aged Out No l onger eligible based on patient's age to complete [...] (Negative) Lay letter mailed to patient WSN: [id number] Ordering Physician: Andra Ness Dictated By: Jyoti Styles MD Dictated Date/Time: 09/18/24 10:37 am Reviewed By: Jyoti Styles MD Signed By: Jyoti Styles MD Signed Date/Time: 09/18/24 10:37 am Transcribed By: MARGARITO Senior Buyer Planner Date/Time: 09/18/24 10:35 am Birads: Procedure Note Donotuseinterpreter, Image - 09/18/2024 PROCEDURE: MM Digital Mammo [...] (Negative) Lay letter mailed to patient WSN: [id number] Ordering Physician: Andra Ness Dictated By: Jyoti Styles MD Dictated Date/Time: 09/18/24 10:37 am Reviewed By: Jyoti Styles MD Signed By: Jyoti Styles MD Signed Date/Time: 09/18/24 10:37 am Transcribed By: MARGARITO Senior Buyer Planner Date/Time: 09/18/24 10:35 am Birads: Andra Ness RESPIRATORY COORDINATOR IMG BI PROCEDURES Shweta l Result * (ABNORMAL) Post-Bariatric Surgery Comprehensive Profile (03/09/2024 10:34 AM EDT) Glucose 83 70 - 99 mg/dL [facility] 1 Hemoglobin A1c CANCELED % [facility] 1 Comment: [facility] was unable to collect sufficient specimen to perform the following test(s), and is providing the patient with re-collection instructions. Prediabetes: 5.7 - 6.4 Diabetes: >6.4 Glycemic control for adults with diabetes: <7.0 [...] 1 PTH Comment [facility] 1 Comment: Interpretation Intact PTH Calcium (pg/mL) (mg/dL) Normal 15 - 65 8.6 - 10.2 Primary Hyperparathyroidism >65 >10.2 Secondary Hyperparathyroidism >65 <10.2 Non-Parathyroid Hypercalcemia <65 >10.2 Hypoparathyroidism <15 < 8.6 Non-Parathyroid Hypocalcemia 15 - 65 < 8.6 Protein, Total 6.5 6.0 - 8.5 [...] D deficiency has been defined by the [place] of Medicine and an Endocrine Society practice guideline as a level of serum 25-OH vitamin D less than 20 ng/mL (1,2). The Endocrine Society went on to further define vitamin D insufficiency as a level between 21 and 29 ng/mL (2). 1. IOM ([place] of Medicine). 2010. Dietary reference intakes for calcium and D. [place]: The National Academies Press. 2. Colt MF, Jose Antonio [place], Colin LAMB, et al. Evaluation, treatment, and prevention of vitamin D deficiency: an Endocrine Society clinical practice guideline. JCEM. 2010; 96(7):1911-30. Cholesterol, Total 219(H) [...] 1 - 03/16/2024 10:05 AM EDT Test(s) 982247-[id number]. B1, Whole Blood; 137341-Zwesus, Serum or Plasma; 854230-Cdvj, Plasma or Serum; 082605-Gtijpstfqcbjc Acid, Serum was developed and its performance characteristics determined by [facility]. It has not been cleared or approved by the Food and Drug Administration. Performed at: 01 - [facility] [address] [id number] Server Manager: Delfina Irene MD, Phone: [phone] Performed at: 02 - [facility] [address] [id number] Server Manager: Kristina Lara MD, Phone: [phone] Andra DemetrisDariankameron [facility] BLOOD ORDERABLES E dited Result - Final [facility] 1 [facility] 2 * Hepatitis C Antibody w/Reflex HCV Quant PCR (06/03/2023 12:37 PM EDT) Hepatitis C Virus Ab, Serum NEGATIVE (NEG) [facility] Comment: Reference range: Negative This test was performed on the [employer] immunoassay system. Testing performed or reported by [facility], a Service of [facility], [address] [place] [id number] Brian Velazco MD, Sales And Merchandising Representative [facility]# [id number] 06/03/2023 12:3 7 PM EDT 06/03/2023 12:38 PM EDT Andrasameer RoblesAspirus Iron River Hospitalkameron [facility] BLOOD ORDERABLES F inal Result Performing Organization Address City/[facility]/ZIP Co de Phone Number [facility] [address] [place] [address] * Colonoscopy (08/29/2017) Colonoscopy normal Historical Provider HEALTH MAINTENANCE Final Result * Hm Pap Smear (03/21/2015) HM Pap smear negative Historical Provider HEALTH MAINTENANCE Final Result from Last 3 Months or Most Recently Relevant to Health Maintenance Insurance BCBS OUT OF STATE Care Teams Personal Banking Officer Relationship Specialty Start Date End Date Alla Pizarro Community Health Worker 01/02/23
--- OUTSIDE RECORDS SUMMARY | 2025-08-30 17:53 | XMS_ITS | Encounter Summary ---
Author Organization [employer] Address [address] [place] [address] Care Team Providers Care Tier Over Name Role Phone Andra Ness Primary Care Provider Unavailable Alla Pizaror Unavailable Unavailable Inactive/Transferred Primary Care Provider Unava ilable Reason for Visit * Reason Onset Date Comments Med Refill 09/17/2023 Encounter Details Date Type Department Care Team (Late st Contact Info) Description 09/17/2023 Refill [facility] [address] [place] [address] Andra Ness FNP Chronic osteoarthritis Social History [...] site documented in this encounter Care Teams Tier Over Relationship Specialty Start Date End Date Andra Ness FNP PCP - General Family Medicine 09/24/22 10/12/24 Inactive/Transferred PCP - General 10/13/24 10/13/24 Alla Pizarro Community Health Worker 01/02/23 documented as of this encounter
--- OUTSIDE RECORDS SUMMARY | 2025-08-30 17:53 | XMS_ITS | Data Portability ---
Author Organization GREY Weiner [facility]enda [id number] Address [address] [place] [address] Assessment Encounter Date Assessment Date Assessment LastModified [...] view 2023 024 [email or web address] [facility], [address] [place], [address], 12:00:56 Medication Orders Zithromax Z-Robert 250 mg tablet 2023 024 [id number], [address], [place], [id number], 4 11:59:04 benzonatate 200 mg capsule 2023 024 ALYSHA Correa [id number], [address], [place], [id number], 4 11:59:08 cefpodoxime 200 mg tablet 2023 024 [id number], [address], [place], [id number], 4 11:59:02 Patient TargetsNo targets recorded. Patient Instructions Encounter Date Encounter Id Patient Instructions Last Modified By Organization Details Last Modified Time 05/22/2024 [id number] Acute Sinusitis: Care Instructions [email or web address] Not available 05/22/2024 11:59:16 cough: care instructions [email or web address] Not available 05/22/2024 11:00:05 Reason for Referral None Reported. Results Created Date Observation Date Name Description Value Unit Range Abnormal Flag Note LastModifiedBy Organization Detail LastModifiedTime 05/22/20 24 05/22/2024 XR, chest , 2 view No observ ation record ed. [facility] [address] [facility], [place], [address], 05/23/2024 11:43:18 Result Notes None recorded. Problems Name Problem SNOMED Code Status Onset Date Resolution Date Notes Provider Name and Address Organization Details Recorded Time Fibromyalgia 197611778 Active Tereza quezada, [place] - [facility] 10:43:52 Arthritis 6348829 Active Tereza quezada, [place] - [facility] 10:43:59 Cough 08823280 Active 2023 GAB CARREON NP [address] [place], [address] [facility] - [facility] 4 10:53:24 Persistent cough 346295106 Active 2023 GAB CARREON NP [address] [place], [address], [place] - [facility] 4 10:59:43 Atypical pneumonia 822120790 Active 2023 GAB CARREON NP [address] [place], [address], [place] - [facility] 4 11:57:40 Acute sinusitis 15054642 Active 2023 GAB CARREON NP [address] [place], [address], [place] - [facility] 4 11:59:02 Problem Notes None recorded. Medical Equipment None Reported. Allergies Allergen ID Allergen Name Allergen Category Reaction Reaction Severity Criticality Documentation Date Start Date Code Code System Note Provider Name and Address Organization Details Recorded Time 830770 Substance with sulfonami de structure and antibacte rial mechanism of action (substanc e) medicatio n Not available Not available Not available 05/22/2024 05524 8003 SNOMED Tereza [facility], [place] - [facility] 4 10:42:30 Medications Name [...] mass index (BMI) Body weight Oxygen saturation Heart rate Respiratory rate Body temperature Systolic And Diastolic Provider Name and Address Organization Details Last Updated DateTime 154.94 cm 29.3 kg/m2 97111.8 2 g 98 % 53 /min 18 /min 98 [degF] 151/95 mm[Hg] Tereza EDMONDS - [facility] 10:41:59 [...] Diagnosis SNOMED-CT Code Diagnosis ICD10 Code Diagnosis IMO Codes Diagnosis Note [id number] [address] [address] [address] 08/16/2020 08:12:56 08/16/2020 10:40:57 [id number] [facility] [address] [address] 06/04/2019 10:36:12 06/04/2019 11:04:57 [id number] GREY KASPER [address] [address] 05/22/2024 10:32:20 05/22/2024 12:00:56 Cough 87522503 R05.9 Persistent cough 3911792 02 R05.3 Atypical pneumonia 67973 6009 J18.9 Acute sinusitis 96282698 J01.90 Health Concerns Section Related Observation LastModified by Organization Detai ls LastModified Time None Recorded Concern Status LastModified by Organization Details LastModified Time None Recorded Advance Directives Directive None Recorded Payers Insurance Date Sequence Insurance Name Policy Number Policy Smith Covered Member ID Smith Member ID Guarantor Name 05/22/2024 1 [place] [id number] Humberto [place] Sully [id number] AB Danielle Virk Notes Date Note Type Note Provider Name and Address Organization Details Recorded Time 4 text/html CoughReported by PatientHPIFor context, patient reportssmoker. For source of patient information, patient reportsinformation obtained from patientandpatient arrived at urgent care ambulatory. For quality, patient reportsintermittent. For severity, patient reportsmoderate. For duration, patient gfganqs04 days. For timing, patient reportsconstant. For associated symptoms, patient reportsno fever,no chills,no chest pain,no heartburn,no nausea,no vomiting,no wheezing, andno post nasal drip. pt is a 59 yo female her [...] CARREON NP [address] [place], [address], [place] - [facility] 05/22/2024 12:01:12 OBGyn Episode No OBEpisode recorded.
--- OUTSIDE RECORDS SUMMARY | 2025-08-30 17:53 | XMS_ITS | Encounter Summary ---
Author Organization [employer] Address [address] [place] [address] Care Team Providers Care Yoker Name Role Phone Andra Ness Primary Care [...] on filedocumented in this encounter Care Teams Yoker Relationship Specialty Start Date End Date Andra Ness FNP PCP - General Family Medicine 09/24/22 10/12/24 Inactive/Transferred PCP - General 10/13/24 10/13/24 Alla Pizarro Community Health Worker 01/02/23 documented as of this encounter
== END 2025-08-30 15:13 | disposition home or self-care (01) ==
LOC: HO.HBS 14:27
PROVIDERS: PCP Nurse Practitioner Family; Visit Provider Physician Assistant Surgical
DX: E66.3 Overweight (principal); Z68.27 Body mass index [BMI] 27.0-27.9, adult; Z90.3 Acquired absence of stomach [part of]; Z98.84 Bariatric surgery status
CPT/HCPCS: 99214